=== PATIENT | female | born 1970 | race Caucasian/White ===

== ENCOUNTER → 2020-04-16 14:24 | Outpatient (BNVA) | payer OTHER, SELFPAY | PROVIDERS: PCP Internal Medicine; Visit Provider Internal Medicine Pulmonary Disease | DX: Z76.89 Persons encountering health services in other specified circumstances (principal) ==

== ENCOUNTER → 2020-10-25 13:57 | Outpatient (BNVA) | payer OTHER, SELFPAY | PROVIDERS: PCP Internal Medicine; Visit Provider Internal Medicine Pulmonary Disease ==

== ENCOUNTER 2020-12-13 08:32 | Outpatient (REF) | payer OTHER, SELFPAY | END 2020-12-13 08:33 | disposition home or self-care (01) | LOC: HO.MDS 08:32 | PROVIDERS: PCP Internal Medicine; Visit Provider Internal Medicine Pulmonary Disease | DX: D50.9 Iron deficiency anemia, unspecified (principal) | CPT/HCPCS: 96372; J0517 ==

== ENCOUNTER 2021-01-10 07:31 | Outpatient (REF) | payer OTHER, SELFPAY | END 2021-01-10 07:32 | disposition home or self-care (01) | LOC: HO.MDS 07:31 | PROVIDERS: PCP Internal Medicine; Visit Provider Internal Medicine Pulmonary Disease | DX: J45.50 Severe persistent asthma, uncomplicated (principal) | CPT/HCPCS: 96372; J0517 ==

== ENCOUNTER → 2021-01-22 16:11 | Outpatient (BNVA) | payer OTHER, SELFPAY | PROVIDERS: Visit Provider Internal Medicine Pulmonary Disease ==

== ENCOUNTER 2021-02-11 07:29 | Outpatient (REF) | payer OTHER, SELFPAY | END 2021-02-11 07:30 | disposition home or self-care (01) | LOC: HO.MDS 07:29 | PROVIDERS: PCP Internal Medicine; Visit Provider Internal Medicine Pulmonary Disease | DX: J45.50 Severe persistent asthma, uncomplicated (principal) | CPT/HCPCS: 96372; J0517 ==

== ENCOUNTER → 2021-03-19 15:28 | Outpatient (BNVA) | payer OTHER, SELFPAY | PROVIDERS: PCP Internal Medicine; Visit Provider Internal Medicine Pulmonary Disease ==

== ENCOUNTER → 2021-09-05 13:14 | Outpatient (BNVA) | payer OTHER, SELFPAY | PROVIDERS: PCP Internal Medicine; Visit Provider Internal Medicine Pulmonary Disease ==

== ENCOUNTER 2023-02-18 15:36 | Outpatient (AMB) | payer OTHER, SELFPAY ==
--- NOTE | 2023-02-18 15:39 | MHC.OFFVIS ---
Intake Vital Signs 02/18/23 15:40 Height 5 ft 1 in Weight 231 lb 7.766 oz BMI 43.7 BP 98/60 Blood Pressure Location Rt brachial Position Sitting Pulse 85 Pulse Source Doppler Pulse Oximetry (%) 95 Oxygen Delivery Method Room Air Intake Visit Reasons: asthma Allergies amoxicillin [Augmentin] Allergy (Unknown, Verified 02/18/23 15:41) Unknown clavulanic acid [Augmentin] Allergy (Unknown, Verified 02/18/23 15:41) Unknown HPI asthma HPI Details 52-year-old lady, former 20 pack-year smoker, quit 2010 with underlying obesity, followed for obstructive sleep apnea on CPAP, environmental allergies, and severe persistent asthma.? Her symptoms are previously controlled on Fasenra, Wixela, Singulair, and albuterol MDI.?She can no longer afford Fasenra in that she is continuing on fluticasone/salmeterol, Singulair, albuterol MDI. Now she complains of an allergic rhinitis worsening associated with change in seasons. [facility] Social History Years Smoked: 15 yrs Review of Systems Const Denies daytime sleepiness, Denies excessive sweating, Denies fatigue, Denies fever(s), Denies lethargy, Denies malaise, Denies night sweats, Denies snoring and Denies weight loss Eyes Denies blurry vision and Denies itchy eyes ENT Reports nasal congestion, Reports post nasal drip, Denies sinus pain, Denies sinus pressure and Denies other ( Thrush) Card Denies chest pain, Denies pedal edema, Denies dyspnea, Denies orthopnea and Denies paroxysmal nocturnal dyspnea Resp Denies cough, Denies hemoptysis, Denies excessive phlegm production, Denies dyspnea, Denies snoring and Denies wheezing GI Denies abdominal pain and Denies heartburn Musc Denies myalgias, Denies arthralgias and Denies joint swelling Skin/Breast Denies rash Neuro Denies memory loss and Denies seizure-like activity Psych Denies abnormal sleep pattern, Denies anxiety and Denies memory loss Endo Denies excessive sweating, Denies fatigue and Denies heat intolerance Delvin/Lymph Denies easy bruising Aller/Immun Denies itchy eyes, Denies seasonal rhinorrhea and Denies wheezing Physical Exam Vital Signs: Last Vital Signs Pulse 85 02/18/23 15:40 BP 98/60 02/18/23 15:40 Pulse Ox 95 02/18/23 15:40 Oxygen Delivery Method Room Air 02/18/23 15:40 BMI result Body Mass Index 43.7 Const General: no acute distress and alert Nutritional Appearance: obese Orientation/consciousness: Other orientation findings ( oriented) HEENT Head: Yes atraumatic Eyes General: appearance normal, both eyes and all related structures Sclerae: sclerae normal EOM: EOMs intact bilaterally Neck Neck: Yes supple Lymphatic: no lymphadenopathy noted Resp Effort & Inspection: normal respiratory effort and no use of accessory muscles Auscultation: clear to auscultation bilaterally Cardio Rate: regular rate Rhythm: regular rhythm Heart sounds: no gallops, no murmurs and no rubs Skin General skin exam: other ( warm) Extrem General: No clubbing, No cyanosis and No edema Assessment & Plan Assessment & Plan (1) Severe persistent allergic asthma: Code(s): J45.50 - Severe persistent asthma, uncomplicated Plan: Baseline controlled on fluticasone/salmeterol and albuterol MDI. Continue current regimen. Now with allergic exacerbation treat with a course of prednisone. (2) Severe obstructive sleep apnea: Code(s): G47.33 - Obstructive sleep apnea (adult) (pediatric) Plan: Therapy and compliance report reviewed - patient is benefitting from and is compliant with noninvasive positive pressure ventilation treatment, using it greater than 70% of the time, more than 4 hours per night. Continue current CPAP therapy. (3) Environmental allergies: Code(s): Z91.09 - Other allergy status, other than to drugs and biological substances Plan: Now with seasonal exacerbation. Continue on Singulair. Medications: New prednisone Take four tabs daily for 3 days, then go down by 1 tab every 3 days. 10 mg PO DIRECTED 30 tabs 0RF Coding Level of Care Code Est Pt Level 4 (29287) Diagnoses Severe persistent allergic asthma J45.50 Severe obstructive sleep apnea G47.33 Environmental allergies Z91.09
[2023-02-18 15:40] VITALS: BP 98/60; PULSE 85; O2SAT 95; BMI 43.7
== END 2023-02-18 15:51 | disposition home or self-care (01) ==
PROVIDERS: PCP Internal Medicine; Visit Provider Internal Medicine Pulmonary Disease
DX: J45.50 Severe persistent asthma, uncomplicated (principal); G47.33 Obstructive sleep apnea (adult) (pediatric); Z91.09 Other allergy status, other than to drugs and biological substances
CPT/HCPCS: 99214

== ENCOUNTER → 2023-02-18 15:36 | Outpatient (BNVA) | payer OTHER, SELFPAY | PROVIDERS: PCP Internal Medicine; Visit Provider Internal Medicine Pulmonary Disease ==

== ENCOUNTER 2023-08-18 15:46 | Outpatient (AMB) | payer OTHER, SELFPAY ==
[2023-08-18 15:51] VITALS: BP 97/62; PULSE 81; O2SAT 97
--- NOTE | 2023-08-18 15:51 | A.OFFVIS_ITS ---
Intake Vital Signs 08/18/23 15:51 Weight 240 lb 4.862 oz BP 97/62 Blood Pressure Location Lt brachial Position Sitting Pulse 81 Pulse Source Doppler Pulse Oximetry (%) 97 Oxygen Delivery Method Room Air Intake Visit Reasons: asthma Allergies amoxicillin [Augmentin] Allergy (Unknown, Verified 08/18/23 15:57) Unknown clavulanic acid [Augmentin] Allergy (Unknown, Verified 08/18/23 15:57) Unknown HPI asthma HPI Details 53-year-old lady, former 20 pack-year sm alana, quit 2010 with underlying obesity, followed for obstructive sleep apnea on CPAP, environmental allergies, and severe persistent asthma.? Her symptoms are previously controlled on Fasenra, Wixela, Singulair, and albuterol MDI.?She can no longer afford Fasenra. Now she is using fluticasone/salmeterol, Singulair, albuterol MDI. She denies any recent exacerbations. Patient states that she has been having difficulties using nasal pillows and now would like to try a bigger CPAP mask. [facility] Social History Years Smoked: 15 yrs Review of Systems Const Denies daytime sleepiness, Denies excessive sweating, Denies fatigue, Denies fever(s), Denies lethargy, Denies malaise, Denies night sweats, Denies snoring and Denies weight loss Eyes Denies blurry vision and Denies itchy eyes ENT Denies nasal congestion, Denies post nasal drip, Denies sinus pain, Denies sinus pressure and Denies other ( Thrush) Card Denies chest pain, Denies pedal edema, Denies dyspnea, Denies orthopnea and Denies paroxysmal nocturnal dyspnea Resp Denies cough, Denies hemoptysis, Denies excessive phlegm production, Denies dyspnea, Denies snoring and Denies wheezing GI Denies abdominal pain and Denies heartburn Musc Denies myalgias, Denies arthralgias and Denies joint swelling Skin/Breast Denies rash Neuro Denies memory loss and Denies seizure-like activity Psych Denies abnormal sleep pattern, Denies anxiety and Denies memory loss Endo Denies excessive sweating, Denies fatigue and Denies heat intolerance Delvin/Lymph Denies easy bruising Aller/Immun Denies itchy eyes, Denies seasonal rhinorrhea and Denies wheezing Physical Exam Vital Signs: Last Vital Signs Pulse 81 08/18/23 15:51 BP 97/62 08/18/23 15:51 Pulse Ox 97 08/18/23 15:51 Oxygen Delivery Method Room Air 08/18/23 15:51 Const General: no acute distress and alert Nutritional Appearance: obese Orientation/consciousness: Other orientation findings ( oriented) HEENT Head: Yes atraumatic Eyes General: appearance normal, both eyes and all related structures Sclerae: sclerae normal EOM: EOMs intact bilaterally Neck Neck: Yes supple Lymphatic: no lymphadenopathy noted Resp Effort & Inspection: normal respiratory effort and no use of accessory muscles Auscultation: clear to auscultation bilaterally Cardio Rate: regular rate Rhythm: regular rhythm Heart sounds: no gallops, no murmurs and no rubs Skin General skin exam: other ( warm) Extrem General: No clubbing, No cyanosis and No edema Assessment & Plan Assessment & Plan (1) Severe persistent allergic asthma: Code(s): J45.50 - Severe persistent asthma, uncomplicated Plan: Worsened control off Fasenra, but still reasonable on Advair HFA and albuterol MDI. Continue current regimen. (2) Severe obstructive sleep apnea: Code(s): G47.33 - Obstructive sleep apnea (adult) (pediatric) Plan: Well controlled on current CPAP therapy. Continue CPAP therapy. Coding Level of Care Code Est Pt Level 4 (33760) Diagnoses Severe persistent allergic asthma J45.50 Severe obstructive sleep apnea G47.33
== END 2023-08-18 16:06 | disposition home or self-care (01) ==
PROVIDERS: PCP Internal Medicine; Visit Provider Internal Medicine Pulmonary Disease
DX: J45.50 Severe persistent asthma, uncomplicated (principal); G47.33 Obstructive sleep apnea (adult) (pediatric)
CPT/HCPCS: 99214

== ENCOUNTER → 2023-08-18 15:46 | Outpatient (BNVA) | payer OTHER, SELFPAY | PROVIDERS: PCP Internal Medicine; Visit Provider Internal Medicine Pulmonary Disease ==

== ENCOUNTER 2024-03-21 14:23 | Outpatient (AMB) | payer OTHER, SELFPAY ==
[2024-03-21 14:27] VITALS: BP 100/62; PULSE 83; O2SAT 94; BMI 46.0
--- NOTE | 2024-03-21 14:27 | MHC.OFFVIS ---
Vital Signs 03/21/24 14:27 Height 5 ft 1 in Weight 243 lb 9.773 oz BMI 46.0 BP 100/62 Blood Pressure Location Rt brachial Position Sitting Pulse 83 Pulse Source Doppler Pulse Oximetry (%) 94 Oxygen Delivery Method Room Air Intake Visit Reasons: asthma Allergies amoxicillin [Augmentin] Allergy (Unknown, Verified 08/18/23 15:57) Unknown clavulanic acid [Augmentin] Allergy (Unknown, Verified 08/18/23 15:57) Unknown HPI HPI asthma: Details: 53-year-old lady, former 20 pack-year smoker, quit 2010 with underlying obesity, followed for obstructive sleep apnea on CPAP, environmental allergies, and severe persistent asthma.? Her symptoms were previously controlled on Fasenra, Wixela, Singulair, and albuterol MDI.?She can no longer afford Fasenra. Now she is using fluticasone/salmeterol, Singulair, albuterol MDI until recently with reasonable control, however control has worsening secondary to worsening seasonal allergies. Though, she denies any recent exacerbations. [facility] Social History Years Smoked: 15 yrs Review of Systems Const Denies daytime sleepiness, Denies excessive sweating, Denies fatigue, Denies fever(s), Denies lethargy, Denies malaise, Denies night sweats, Denies snoring and Denies weight loss Eyes Denies blurry vision and Denies itchy eyes ENT Denies nasal congestion, Denies post nasal drip, Denies sinus pain, Denies sinus pressure and Denies other ( Thrush) Card Denies chest pain, Denies pedal edema, Denies dyspnea, Denies orthopnea and Denies paroxysmal nocturnal dyspnea Resp Reports cough, Denies hemoptysis, Reports excessive phlegm production, Denies dyspnea, Denies snoring and Denies wheezing GI Denies abdominal pain and Denies heartburn Musc Denies myalgias, Denies arthralgias and Denies joint swelling Skin/Breast Denies rash Neuro Denies memory loss and Denies seizure-like activity Psych Denies abnormal sleep pattern, Denies anxiety and Denies memory loss Endo Denies excessive sweating, Denies fatigue and Denies heat intolerance Delvin/Lymph Denies easy bruising Aller/Immun Denies itchy eyes, Denies seasonal rhinorrhea and Denies wheezing Physical Exam Vital Signs: Last Vital Signs Pulse 83 03/21/24 14:27 BP 100/62 03/21/24 14:27 Pulse Ox 94 03/21/24 14:27 Oxygen Delivery Method Room Air 03/21/24 14:27 BMI result Body Mass Index 46.0 Const General: no acute distress and alert Nutritional Appearance: obese Orientation/consciousness: Other orientation findings ( oriented) HEENT Head: Yes atraumatic Eyes General: appearance normal, both eyes and all related structures Sclerae: sclerae normal EOM: EOMs intact bilaterally Neck Neck: Yes supple Lymphatic: no lymphadenopathy noted Resp Effort & Inspection: normal respiratory effort and no use of accessory muscles Auscultation: clear to auscultation bilaterally Cardio Rate: regular rate Rhythm: regular rhythm Heart sounds: no gallops, no murmurs and no rubs Skin General skin exam: other ( warm) Extrem General: No clubbing, No cyanosis and No edema Assessment & Plan Assessment & Plan (1) Environmental allergies: Code(s): Z91.09 - Other allergy status, other than to drugs and biological substances Category: Medical Plan: Worsening control secondary to seasonal allergies. Patient can no longer afford Fasenra. Continue Singulair, add cetirizine. (2) Severe persistent allergic asthma: Code(s): J45.50 - Severe persistent asthma, uncomplicated Category: Medical Plan: Worsening control off Fasenra, but still reasonable on Advair and albuterol MDI. Continue current regimen. (3) Severe obstructive sleep apnea: Code(s): G47.33 - Obstructive sleep apnea (adult) (pediatric) Category: Medical Plan: Reasonable control on CPAP therapy. Continue CPAP therapy. Medications: New cetirizine 10 mg PO DAILY 30 tabs 3RF Coding Level of Care Code Est Pt Level 4 (88551) Diagnoses Environmental allergies Z91.09 Severe persistent allergic asthma J45.50 Severe obstructive sleep apnea G47.33
== END 2024-03-21 14:48 | disposition home or self-care (01) ==
PROVIDERS: PCP Family Medicine; Visit Provider Internal Medicine Pulmonary Disease
DX: Z91.09 Other allergy status, other than to drugs and biological substances (principal); J45.50 Severe persistent asthma, uncomplicated; G47.33 Obstructive sleep apnea (adult) (pediatric)
CPT/HCPCS: 99214

== ENCOUNTER → 2024-03-21 14:23 | Outpatient (BNVA) | payer OTHER, SELFPAY | PROVIDERS: PCP Family Medicine; Visit Provider Internal Medicine Pulmonary Disease ==

== ENCOUNTER 2024-09-21 15:37 | Outpatient (AMB) | payer OTHER, SELFPAY ==
[2024-09-21 15:40] VITALS: BP 112/58; PULSE 91; O2SAT 98; BMI 45.5
--- NOTE | 2024-09-21 15:40 | A.OFFVIS_ITS ---
Vital Signs 09/21/24 15:40 Height 5 ft 1 in Weight 241 lb BMI 45.5 BP 112/58 L Blood Pressure Location Rt brachial Position Sitting Pulse 91 Pulse Source Doppler Pulse Oximetry (%) 98 Oxygen Delivery Method Room Air Intake Visit Reasons: asthma Allergies amoxicillin [Augmentin] Allergy (Unknown, Verified 09/21/24 15:46) Unknown clavulanic acid [Augmentin] Allergy (Unknown, Verified 09/21/24 15:46) Unknown HPI HPI asthma: Details: 53-year-old lady, former 20 pack-year smoker, quit 2010 with underlying obesity, followed for obstructive sleep apnea on CPAP, environmental allergies, and severe persistent asthma.? Her symptoms reasonably controlled Wixela, Singulair, and albuterol MDI.?She can no longer afford Fasenra. She denies recent exacerbations. Patient did have recent flare-up of her environmental allergies for which she continues on Zyrtec, pseudoephedrine, and Alix. [facility] Social History Years Smoked: 15 yrs Review of Systems Const Denies daytime sleepiness, Denies excessive sweating, Denies fatigue, Denies fever(s), Denies lethargy, Denies malaise, Denies night sweats, Denies snoring and Denies weight loss Eyes Denies blurry vision and Denies itchy eyes ENT Denies nasal congestion, Denies post nasal drip, Denies sinus pain, Denies sinus pressure and Denies other ( Thrush) Card Denies chest pain, Denies pedal edema, Denies dyspnea, Denies orthopnea and Denies paroxysmal nocturnal dyspnea Resp Denies cough, Denies hemoptysis, Denies excessive phlegm production, Denies dyspnea, Denies snoring and Denies wheezing GI Denies abdominal pain and Denies heartburn Musc Denies myalgias, Denies arthralgias and Denies joint swelling Skin/Breast Denies rash Neuro Denies memory loss and Denies seizure-like activity Psych Denies abnormal sleep pattern, Denies anxiety and Denies memory loss Endo Denies excessive sweating, Denies fatigue and Denies heat intolerance Delvin/Lymph Denies easy bruising Aller/Immun Denies itchy eyes, Denies seasonal rhinorrhea and Denies wheezing Physical Exam Vital Signs: Last Vital Signs Pulse 91 09/21/24 15:40 BP 112/58 L 09/21/24 15:40 Pulse Ox 98 09/21/24 15:40 Oxygen Delivery Method Room Air 09/21/24 15:40 BMI result Body Mass Index 45.5 Const General: no acute distress and alert Nutritional Appearance: obese Orientation/consciousness: Other orientation findings ( oriented) HEENT Head: Yes atraumatic Eyes General: appearance normal, both eyes and all related structures Sclerae: sclerae normal EOM: EOMs intact bilaterally Neck Neck: Yes supple Lymphatic: no lymphadenopathy noted Resp Effort & Inspection: normal respiratory effort and no use of accessory muscles Auscultation: clear to auscultation bilaterally Cardio Rate: regular rate Rhythm: regular rhythm Heart sounds: no gallops, no murmurs and no rubs Skin General skin exam: other ( warm) Extrem General: No clubbing, No cyanosis and No edema Assessment & Plan Assessment & Plan (1) Severe persistent allergic asthma: Code(s): J45.50 - Severe persistent asthma, uncomplicated Category: Medical Plan: Reasonable control on Wixela, Singulair, and albuterol MDI. Continue current regimen. (2) Severe obstructive sleep apnea: Code(s): G47.33 - Obstructive sleep apnea (adult) (pediatric) Category: Medical Plan: Well controlled on CPAP therapy. Continue CPAP therapy. (3) Environmental allergies: Code(s): Z91.09 - Other allergy status, other than to drugs and biological substances Category: Medical Plan: Suboptimal, but reasonable control on Singulair, Alix, Zyrtec. Continue current regimen. Coding Level of Care Code Est Pt Level 4 (19552) Complex EM visit Add On G2211 Diagnoses Severe persistent allergic asthma J45.50 Severe obstructive sleep apnea G47.33 Environmental allergies Z91.09
--- OUTSIDE RECORDS SUMMARY | 2024-09-21 19:07 | XMS_ITS | Clinical Summary ---
Author Organization [facility] Facility Address [address] [address] Care Team Providers Care Scholastic Aptitude Test Grader Name Role Phone Shelly Vega MD Primary Care Provid er Allergies Active Allergy Reactions Criticality Noted Date Comments Adhesive Tape Other (see comments) 10/08/2020 Amoxicillin-Pot Clavulanate Other (see comments) 08/01/2013 Erythromycin Other (see comments) 07/11/2013 Latex Other (see comments) 10/08/2020 Mangifera Indica Anaphylaxis,Other (s ee comments) High 10/08/2020 Nsaids Anaphylaxis High 07/11/2013 Pineapple Other (see comments) 07/11/2013 Medications albuterol HFA (PROVENTIL HFA;VENTOLIN HFA) 108 (90 Base) MCG/ACT inhaler INHALE 2 PUFFS BY MOUTH EVERY 2 HOURS NEEDED 1 Active apixaban (Eliquis) 5 MG tablet Take 1 tablet by mouth 2 (two) times a day Active budesonide (Rhinocort Aqua) 32 MCG/ACT nasal spray Rhinocort Aqua 32 mcg/actuation nasal spray Reliance 2sprays each nostril daily Active citalopram (CeleXA) 20 MG tablet Take 20 mg by mouth 1 (one) time each day 1 Active cyclobenzaprine (FLEXERIL) 5 MG tablet Take 1 tablet by mouth 1 (one) time each day 1 Active escitalopram (LEXAPRO) 20 MG tablet Take 1 tablet by mouth 1 (one) time each day Active fluconazole (DIFLUCAN) 100 MG tablet Take 1 tablet by mouth 1 (one) time each day Active fluticasone-wilam meterol (Wixela Inhub) 250-50 MCG/DOSE diskus inhaler 1 puff by Other route 2 (two) times a day Active furosemide (LASIX) 40 MG tablet Take 1 tablet by mouth 2 (two) times a day 0 Active gabapentin (NEURONTIN) 100 MG capsule Take 1 capsule by mouth 1 (one) time each day 1 Active isometheptene-a cetaminophen-di chloralphenazon e (MIDRIN) 65-100-325 MG per capsule Take 2 capsules by mouth if needed Active loratadine (CLARITIN) 10 MG tablet Take 1 tablet by mouth 1 (one) time each day Active meloxicam (MOBIC) 7.5 MG tablet Take 1 tablet by mouth 1 (one) time each day 1 Active metroNIDAZOLE (FLAGYL) 500 MG tablet Take 1 tablet by mouth 1 (one) time each day Active montelukast (SINGULAIR) 10 MG tablet Take 10 mg by mouth 1 (one) time each day 1 Active omeprazole (PriLOSEC) [address] capsule Take 20 mg by mouth 2 (two) times a day DIRECTED 1 Active predniSONE (DELTASONE) 20 MG tablet Take 1 tablet by mouth 1 Active sulfamethoxazol e-trimethoprim (BACTRIM DS,SEPTRA DS) 800-160 MG per tablet Take 1 tablet by mouth 1 (one) time each day Active topiramate (TOPAMAX) 25 MG tablet Take 50 mg by mouth 2 (two) times a day 1 Active torsemide (DEMADEX) 20 MG tablet Take 1 tablet by mouth 1 (one) time each day Active valACYclovir (Valtrex) 500 MG tablet Take 1 tablet by mouth 1 (one) time each day Active Active Problems Problem Noted Date Diagnosed Date Allergic rhinitis 10/08/2020 Anxiety state 10/08/2020 Edema of lower extremity 10/08/2020 Gastroesophageal reflux disease 10/08/2020 Impaired glucose tolerance 10/08/2020 Iron deficiency anemia 10/08/2020 Irritable bowel syndrome 10/08/2020 Migraine 10/08/2020 Obstructive sleep apnea syndrome 10/08/2020 Hypertensive heart and chron ic kidney disease without heart failure, with stage 1 through stage 4 chronic kidney disease, or unspecified chronic kidney disease 10/08/2020 Chronic kidney disease, stage 2 (mild) Candidiasis of mouth 09/07/2020 Chronic vascular insufficiency 04/04/2020 Chronic back pain 06/16/2019 Deep venous thrombosis of upper extremity 2018 Severe obesity 07/06/2018 Dysfunctional uterine bleeding 08/26/2002 Immunizations Name Administration Dates Next Due Influenza (IM) Preservative Free 04/11/2015 Influenza TIV (IM) 04/06/2019,03/28/2014, 010 Influenza, Quadrivalent, Preservative Free 04/04 Influenza, Quadrivalent, With Preservative 04/16,04/02/2017 Moderna SARS-COV-2 08/16/2020,07/19/2020 Td 01/21/1999 Tdap 11/14/2012 Family History Medical History Relation Comments Diabetes Father Type 2 Hypertension Father Cancer Mother anal- Relation Status Comments Father Alive Mother Social History Tobacco Use Types Packs/Day Years Used Date Smoking Tobacco: Never Smokeless Tobacco: Never Alcohol Use Standard Drinks/Week Comments Yes 0 (1 standard drink = 0.6 oz pure alcohol) Alcoholic Drinks/day: 3 or more drinks per day Comments Unknown Sex and Gender Information Value Date Recorded Sex Assigned at Not on file Legal Sex Female 4:57 PM EST Gender Identity Not on file Sexual Orientation Not on file Last Filed Vital Signs Vital Sign Reading Time Taken Comments Blood Pressure 140/80 10/08/2020 1:46 PM EDT Pulse 88 10/08/2020 1:46 PM EDT Temperature - - Respiratory Rate - - Oxygen Saturation 95% 04/01/2020 12:01 PM EDT Inhaled Oxygen Concentration - - Weight 107 kg (236 lb) 10/08/2020 1:46 PM EDT Height 154.9 cm (5' 1 ) 04/01/2020 12:01 PM EDT Body Mass Index 44.59 04/01/2020 12:01 PM EDT Plan of Treatment Health Maintenance Due Date Last Done Comments Breast Cancer Screening 1970 Pneumococcal Vaccine: Pediat rics (0 to 5 Years) and At-Risk Patients (6 to 64 Years) (1 of 2 - PCV) 1976 Hepatitis B Vaccine (1 of 3 - 19+ 3-dose series) 1989 Colorectal Cancer Screening: Annual FOBT 2019 Colorectal Cancer Screening: Colonoscopy 2019 Colorectal Cancer Screening: Sigmoidoscopy 2019 Influenza Vaccine (#1) 2024 0, 04/06/2019, 04/16/2018, Additional history exists Care Teams Scholastic Aptitude Test Grader Relationship Specialty Start Date End Date Shelly Vega MD [address] PCP - General Internal Medicine 10/08/20
--- OUTSIDE RECORDS SUMMARY | 2024-09-21 19:08 | XMS_ITS | Clinical Summary ---
Author Organization [facility] [address] [facility] Address [address] [place] [address] Phone Care Team Providers Care Software Lead Name Role Phone Joey Villalobos MD Primary Care Provider [phone] Allergies Active Allergy Reactions Criticality Noted Date Comments Banana 05/30/2024 Erythromycin 05/30/2024 Latex 05/30/2024 [place] 05/30/2024 Pineapple 05/30/2024 [place] 05/30/2024 Medications valACYclovir (VALTREX) 500 mg tablet Take 1 tablet (500 mg total) by mouth 1 (one) time each day. 8 Active topiramate (TOPAMAX) 200 mg tablet Take 1 tablet every day by oral route at bedtime for 90 days. Active omeprazole (PriLOSEC) [address] capsule Take 1 capsule (20 mg total) by mouth. 1 Active montelukast (SINGULAIR) 10 mg tablet Take 1 tablet (10 mg total) by mouth 1 (one) time each day. 1 Active cetirizine (ZyrTEC) 10 mg tablet Take 1 tablet (10 mg total) by mouth 1 (one) time each day. Active albuterol HFA (PROAIR HFA ; PROVENTIL HFA ; VENTOLIN HFA) 90 mcg/actuation inhaler Inhale 2 puffs every day by inhalation route for 15 days. 1 Active escitalopram (LEXAPRO) 20 mg tablet Take 1 tablet (20 mg total) by mouth at bedtime. Active fluticasone-wilma meterol (ADVAIR DISKUS) 250-50 mcg/dose diskus inhaler 1 puff by Other route. Active dicyclomine (BENTYL) 10 mg capsuleIndicati ons:Irritable bowel syndrome with diarrhea TAKE 1 CAPSULE (10 MG TOTAL) BY MOUTH 4 (FOUR) TIMES A DAY IF NEEDED (DIARRHEA). 360 capsule 1 4 06/08/20 Active Active Problems Problem Noted Date Diagnosed Date Irritable bowel syndrome with diarrhea Social History Tobacco Use Types Packs/Day Years Used Date Smoking Tobacco: Never Assessed Comments Unknown Sex and Gender Information Value Date Recorded Sex Assigned at Not on file Legal Sex Female 12:44 AM EST Gender Identity Not on file Sexual Orientation Not on file Last Filed Vital Signs Vital Sign Reading Time Taken Comments Blood Pressure - - Pulse - - Temperature - - Respiratory Rate - - Oxygen Saturation - - Inhaled Oxygen Concentration - - Weight 110 kg (243 lb) 05/30/2024 7:28 AM EST Height 154.9 cm (5' 1 ) 05/30/2024 7:28 AM EST Body Mass Index 45.91 05/30/2024 7:28 AM EST Plan of Treatment Health Maintenance Due Date Last Done Comments Diabetes: Annual GFR (Glomerular Filtration Rate) 1970 Diabetes: Annual Foot Exam 1980 Diabetes: Annual Retina Eye Exam 1980 Hepatitis B Vaccines (1 of 3 - 19+ 3-dose series) 1989 Pneumococcal Vaccine: 50+ Years (1 of 2 - PCV) 1989 Pneumococcal Vaccine: Pediatrics (0 to 5 Years) and At-Risk Patients (6 to 64 Years) (1 of 2 - PCV) 1989 Cervical Cancer Screening: Pap Smear 1991 Zoster Vaccines (1 of 2) 2020 DTaP,Tdap,and Td Vaccines (3 - Td or Tdap) 11/14/2022 11/14/2012, 01/21/1999 COVID-19 Vaccine (2023- season) 2024 02/26/2023, 05/02/2021, 08/16/2020, Additional history exists Influenza Vaccine (#1) 2024 2, 03/27/2021, 04/04/2020, Additional history exists Cholesterol Screening (Lipid Panel) 04/21/2024 Colorectal Cancer Screening: Colonoscopy 04/21/2024 Depression Screening 04/21/2024 HIV Screening 04/21/2024 Hepatitis C Screening 04/21/2024 Social Influencers of Health Screening 04/21/2024 Diabetes: Annual Urine Albumin-Creatinine Ratio (uACR) 05/30/2024 Diabetes: Blood Sugar Control Test (HGBA1C) 05/30/2024 Breast Cancer Screening 10/24/2025 10/25/2023 HIB Vaccines Aged Out No longer eligi ble based on patient's age to complete this topic HPV Vaccines Aged Out No longer eligi ble based on patient's age to complete this topic Hepatitis A Vaccines Aged Out No long er eligible based on patient's age to complete this topic IPV Vaccines Aged Out No longer eligi ble based on patient's age to complete this topic MMR Vaccines Aged Out No longer eligi ble based on patient's age to complete this topic Meningococcal ACWY Vaccine Aged Out N o longer eligible based on patient's age to complete this topic Meningococcal B Vacine Aged Out No lo nger eligible based on patient's age to complete this topic RSV Immunization Patients Under 20 months Aged Out No longer eligible based on patient's age to complete this topic Varicella Vaccines Aged Out No longer eligible based on patient's age to complete this topic Insurance * Guarantor: Adry Lorenzo Account Type Relation to Patient Date of Phone Billing Address Personal/Family Self 1970 [address] [facility] [address] [place] [address] [facility] [address] [place] [address] Care Teams Software Lead Relationship Specialty Start Date End Date Joey Villalobos MD [address] [facility] [address] [place] [id number] PCP - General Family Medicine 05/30/24
--- OUTSIDE RECORDS SUMMARY | 2024-09-21 19:08 | XMS_ITS | Data Portability ---
Author Organization [facility], Main Office Address [address] [place] [address] Care Team Providers Care Scheduling Manager Name Role Phone DINORA MUNOZ Wool Handler SHAYY REMY Gum Maker [phone] JOIE HODGE Orthopedic Surgeon [facility] Vascular Surgeon [phone] YAMINI BARNEY Cold Work Operator MIGUEL BUSCH Quality Improvement Specialist XAVI WILL Poster DARYL ROBLES [employer] Signal And Switch Operator JERRY JAY Primary Care Provider PRIYANKA DOZIER Neuropsychiatrist ENRIQUETA CRUZ Finisher Accordion RENNY LEDEZMA Slag Skimmer Assessment Encounter Date Assessment Date Assessment LastModified by Organization Details LastModified Time 09/28/2023 09/28/2023 This service was provided using telemedicine. Patient consented to video & audio visit Patient was located in the [facility]. Provider was located in the office. No other persons participated in the telemedicine visit except for the patient unless otherwise indicated here. {{}} Total time of visit was 15 minutes. renate Not available 09/28/2023 17:24:50 06/14/2024 06/14/2024 Discussed with patient the signs/symptoms warranted for a return to office visit and/or an ER visit. Patient understood and agreed with the plan. [email or web address] Not available 06/14/2024 15:27:37 Plan of Treatment Reminders Order Date Submit Date Provider Last Modified By Organization Details Last Modified Time Details Appointments None record ed. Lab HbA1c (hemog lobin A1c), blood 2023 [facility], [address], [address], [place], [address], 06:08:32 lipid panel, serum 2023 024 [facility] Patient Can Go To The Location Of Their Choice, [address] 06:08:32 TSH, ultra- sensit favian, serum 2023 024 [facility]), Patient Can Go To The Location Of Their Choice, [address] 06:08:33 CMP, serum or plasma 2023 [facility]), Patient Can Go To The Location Of Their Choice, [address] 06:08:31 CBC w/ auto diff 2023 [facility]), Patient Can Go To The Location Of Their Choice, [address] 06:08:30 urinal ysis, dipsti ck 2023 024 pmadden In-Office Order, Internal Use Only DO Not Attach Compendium DO Not Attach Compendium, Do Not Delete/merge, [id number] 11:41:10 urinal ysis comple te, reflex cultur e 2023 024 [facility] Patient Can Go To The Location Of Their Choice, [address] 4 12:06:51 Referral psychi atrist referr cassidy maldonado r2 2023 024 adolph Dozier, [address], [address], [place], [address], 12:11:42 Procedures None record ed. Surgeries None record ed. Imaging None record ed. Medication Orders predni sone 20 mg tablet 2023 024 [facility], [address] [place], [address], 4 15:30:04 flucon azole 150 mg tablet 2023 024 [facility], [address] [place], [address], 4 15:21:25 Tessal on Perles 100 mg capsul e 2023 024 [facility] [address] [place], [address], 4 16:23:09 Medrol (Marco) 4 mg tablet s in a dose pack 2023 024 [facility], [address] [place], [address], 4 16:24:04 Patient TargetsNo targets recorded. Patient Instructions Encounter Date Encounter Id Patient Instructions Last Modified By Organization Details Last Modified Time 08/28/2023 [id number] things to do when you have covid-19 ckokar Not available 08/28/2023 10:24:57 coronavirus (covid-19): care instructions ckokar Not available 08/28/2023 10:24:57 asthma attack: care instructions ckokar Not available 08/28/2023 10:24:57 09/28/2023 [id number] anxiety disorder : care instructions ckokar Not available 09/28/2023 17:24:51 11/30/2023 [id number] vaginal yeast infection: care instructions pmadden Not available 11/30/2023 14:03:42 Follow up if no improvement or if symptoms worsen. pmadden Not available 11/30/2023 11:50:35 04/04/2024 [id number] starting a weigh t loss plan: care instructions renate Not available 04/04/2024 15:08:10 sleep apnea: car e instructions [email or web address] Not available 04/04/2024 15:08:10 Reason for Referral Psychiatrist Referral for Cy clothymia questioning bipolar2 Referring Physician: Jerry Jay, Family Medicine, Encounter Date: 09/28/2023 Results Created Date Observation Date Name Description Value Unit Range Abnormal Flag Note LastModifiedBy Organization Detail LastModifiedTime 11/30/19 24 12/01/2023 UA WITH CULTU RE REFLE X specific gravity 1.018 1.005- 1.030 Not Available [facility] ([facility]) [address] [place], [address], 12/01/2023 12:06:50 11/30/19 24 12/01/2023 UA WITH CULTU RE REFLE X pH 7.0 5.0-7. 5 Not Available [facility] ([facility]) [address] [place], [address], 12/01/2023 12:06:50 11/30/19 24 12/01/2023 UA WITH CULTU RE REFLE X urine-color Yellow yellow Not Available [facility] ([facility]) [address] [place], [address], 12/01/2023 12:06:50 11/30/19 24 12/01/2023 UA WITH CULTU RE REFLE X appearance Clear clear Not Available [facility] ([facility]) [address] [place], [address], 12/01/2023 12:06:50 11/30/19 24 12/01/2023 UA WITH CULTU RE REFLE X WBC esterase Negati ve negati ve Not Available [facility] ([facility]) [address] [place], [address], 12/01/2023 12:06:50 11/30/19 24 12/01/2023 UA WITH CULTU RE REFLE X protein Negati ve negati ve/tra ce Not Available [facility] ([facility]) [address] [place], [address], 12/01/2023 12:06:50 11/30/19 24 12/01/2023 UA WITH CULTU RE REFLE X glucose Negati ve negati ve Not Available [facility] ([facility]) [address] [place], [address], 12/01/2023 12:06:50 11/30/19 24 12/01/2023 UA WITH CULTU RE REFLE X ketones Negati ve negati ve Not Available [facility] ([facility]) [address] [place], [address], 12/01/2023 12:06:50 11/30/19 24 12/01/2023 UA WITH CULTU RE REFLE X occult blood Negati ve negati ve Not Available [facility] ([facility]) [address] [place], [address], 12/01/2023 12:06:50 11/30/19 24 12/01/2023 UA WITH CULTU RE REFLE X bilirubin Negati ve negati ve Not Available [facility] ([facility]) [address] [place], [address], 12/01/2023 12:06:50 11/30/19 24 12/01/2023 UA WITH CULTU RE REFLE X urobilinogen ,semi-qn 0.2 mg/dL 0.2-1. 0 Not Available [facility] ([facility]) [address] [place], [address], 12/01/2023 12:06:50 11/30/19 24 12/01/2023 UA WITH CULTU RE REFLE X nitrite, urine Negati ve negati ve Not Available [facility] ([facility]) [address] [place], [address], 12/01/2023 12:06:50 11/30/19 24 12/01/2023 UA WITH CULTU RE REFLE X microscopic examination Commen t Micro scopi c not indic ated and not perfo rmed. Not Available [facility] ([facility]) [address] [facility] [address], [place], [address], 12/01/2023 12:06:50 11/30/19 24 12/01/2023 UA WITH CULTU RE REFLE X urinalysis reflex Commen t This speci men will not refle x to a Urine Cultu re. Not Available [facility] ([facility]) [address] [facility], [place], [address], 12/01/2023 12:06:50 11/30/19 24 11/30/2023 urina lysis , dipst ick Leukocytes Negati ve Not Available In-Office Order Internal Use Only DO Not Attach Compendium DO Not Attach Compendium, Do Not Delete/merge, [id number] 11/30/2023 11:38:39 11/30/19 24 11/30/2023 urina lysis , dipst ick Nitritie negati ve Not Available In-Office Order Internal Use Only DO Not Attach Compendium DO Not Attach Compendium, Do Not Delete/merge, [id number] 11/30/2023 11:38:39 11/30/19 24 11/30/2023 urina lysis , dipst ick Urobilinogen .2 Not Available In-Of fice Order Internal Use Only DO Not Attach Compendium DO Not Attach Compendium, Do Not Delete/merge, [id number] 11/30/2023 11:38:39 11/30/19 24 11/30/2023 urina lysis , dipst ick Protein Negati ve Not Available In-Office Order Internal Use Only DO Not Attach Compendium DO Not Attach Compendium, Do Not Delete/merge, [id number] 11/30/2023 11:38:39 11/30/19 24 11/30/2023 urina lysis , dipst ick pH 6.5 Not Available In-Office Order Internal Use Only DO Not Attach Compendium DO Not Attach Compendium, Do Not Delete/merge, 11/30/2023 11:38:39 11/30/19 24 11/30/2023 urina lysis , dipst ick Blood Negati ve Not Available In-Office Order Internal Use Only DO Not Attach Compendium DO Not Attach Compendium, Do Not Delete/merge, 11/30/2023 11:38:39 11/30/19 24 11/30/2023 urina lysis , dipst ick Specific Dodge 1.015 Not Available In-Off ice Order Internal Use Only DO Not Attach Compendium DO Not Attach Compendium, Do Not Delete/merge, 11/30/2023 11:38:39 11/30/19 24 11/30/2023 urina lysis , dipst ick Ketone Negati ve Not Available In-Office Order Internal Use Only DO Not Attach Compendium DO Not Attach Compendium, Do Not Delete/merge, 11/30/2023 11:38:39 11/30/19 24 11/30/2023 urina lysis , dipst ick Bilirubin Negati ve Not Available In-Office Order Internal Use Only DO Not Attach Compendium DO Not Attach Compendium, Do Not Delete/merge, 11/30/2023 11:38:39 11/30/19 24 11/30/2023 urina lysis , dipst ick Glucose Negati ve Not Available In-Office Order Internal Use Only DO Not Attach Compendium DO Not Attach Compendium, Do Not Delete/merge, 11/30/2023 11:38:39 11/30/19 24 11/30/2023 urina lysis , dipst ick Appearance Clear Not Available In-Offi ce Order Internal Use Only DO Not Attach Compendium DO Not Attach Compendium, Do Not Delete/merge, 11/30/2023 11:38:39 11/30/19 24 11/30/2023 urina lysis , dipst ick Color Yellow Not Available In-Office Order Internal Use Only DO Not Attach Compendium DO Not Attach Compendium, Do Not Delete/merge, 11/30/2023 11:38:39 04/27/20 24 04/28/2024 CBC WITH DIFFE RENTI AL/PL ATELE T WBC 6.5 x10e3 /uL 3.4-10 .8 normal Not Available [facility] ([facility]) [address] [facility], [place], [address], 04/28/2024 06:08:30 04/27/20 24 04/28/2024 CBC WITH DIFFE RENTI AL/PL ATELE T RBC 4.64 x10e6 /uL 3.77-5 .28 normal Not Available [facility] ([facility]) [address] [facility], [place], [address], 04/28/2024 06:08:30 04/27/2004/28/2024 CBC WITH DIFFE RENTI AL/PL ATELE T hemoglobin 13.3 g/dL 11.1-1 5.9 normal Not Available [facility] ([facility]) [address] [place], [address], 04/28/2024 06:08:30 04/27/20 24 04/28/2024 CBC WITH DIFFE RENTI AL/PL ATELE T hematocrit 40.9 % 34.0-4 6.6 normal Not Available [facility] ([facility]) [address] [place], [address], 04/28/2024 06:08:30 04/27/2004/28/2024 CBC WITH DIFFE RENTI AL/PL ATELE T MCV 88 fL 79-97 normal Not Available [facility] ([facility]) [address] [place], [address], 04/28/2024 06:08:30 04/27/2004/28/2024 CBC WITH DIFFE RENTI AL/PL ATELE T MCH 28.7 pg 26.6-3 3.0 normal Not Available [facility] ([facility]) [address] [place], [address], 04/28/2024 06:08:30 04/27/20 24 04/28/2024 CBC WITH DIFFE RENTI AL/PL ATELE T MCHC 32.5 g/dL 31.5-3 5.7 normal Not Available [facility] ([facility]) [address] [facility], [place], [address], 04/28/2024 06:08:30 04/27/20 24 04/28/2024 CBC WITH DIFFE RENTI AL/PL ATELE T RDW 12.9 % 11.7-1 5.4 Not Available [facility] ([facility]) [address] [facility] [address], [place], [address], 04/28/2024 06:08:30 04/27/2004/28/2024 CBC WITH DIFFE RENTI AL/PL ATELE T platelets 263 x10e3 /uL 150-45 0 normal Not Available [facility] ([facility]) [address] [facility], [place], [address], 04/28/2024 06:08:30 04/27/20 24 04/28/2024 CBC WITH DIFFE RENTI AL/PL ATELE T neutrophils 60 % not estab. normal Not Available [facility] ([facility]) [address] [facility], [place], [address], 04/28/2024 06:08:30 04/27/20 24 04/28/2024 CBC WITH DIFFE RENTI AL/PL ATELE T lymphs 28 % not estab. normal Not Available [facility] ([facility]) [address] [facility], [place], [address], 04/28/2024 06:08:30 04/27/20 24 04/28/2024 CBC WITH DIFFE RENTI AL/PL ATELE T monocytes 7 % not estab. normal Not Available [facility] ([facility]) [address] [facility], [place], [address], 04/28/2024 06:08:30 04/27/20 24 04/28/2024 CBC WITH DIFFE RENTI AL/PL ATELE T eos 4 % not estab. normal Not Available [facility] ([facility]) [address] [facility], [place], [address], 04/28/2024 06:08:30 04/27/20 24 04/28/2024 CBC WITH DIFFE RENTI AL/PL ATELE T basos 1 % not estab. normal Not Available [facility] ([facility]) [address] [facility], [place], [address], 04/28/2024 06:08:30 04/27/2004/28/2024 CBC WITH DIFFE RENTI AL/PL ATELE T immature cells ELECTRICIAN MAINTENANCE Not Available [facility] ([facility]) [address] [facility], [place], [address], 04/28/2024 06:08:30 04/27/2004/28/2024 CBC WITH DIFFE RENTI AL/PL ATELE T neutrophils (absolute) 3.9 x10e3 /uL 1.4-7. 0 normal Not Available [facility] ([facility]) [address] [place], [address], 04/28/2024 06:08:30 04/27/20 24 04/28/2024 CBC WITH DIFFE RENTI AL/PL ATELE T lymphs (absolute) 1.8 x10e3 /uL 0.7-3. 1 normal Not Available [facility] ([facility]) [address] [place], [address], 04/28/2024 06:08:30 04/27/2004/28/2024 CBC WITH DIFFE RENTI AL/PL ATELE T monocytes(ab solute) 0.4 x10e3 /uL 0.1-0. 9 normal Not Available [facility] ([facility]) [address] [place], [address], 04/28/2024 06:08:30 04/27/20 24 04/28/2024 CBC WITH DIFFE RENTI AL/PL ATELE T eos (absolute) 0.2 x10e3 /uL 0.0-0. 4 normal Not Available [facility] ([facility]) [address] [facility], [place], [address], 04/28/2024 06:08:30 04/27/20 24 04/28/2024 CBC WITH DIFFE RENTI AL/PL ATELE T baso (absolute) 0.1 x10e3 /uL 0.0-0. 2 normal Not Available [facility] ([facility]) [address] [facility], [place], [address], 04/28/2024 06:08:30 04/27/2004/28/2024 CBC WITH DIFFE RENTI AL/PL ATELE T immature granulocytes 0 % not estab. Not Available [facility] ([facility]) [address] [facility], [place], [address], 04/28/2024 06:08:30 04/27/20 24 04/28/2024 CBC WITH DIFFE RENTI AL/PL ATELE T immature grans (abs) 0.0 x10e3 /uL 0.0-0. 1 Not Available [facility] ([facility]) [address] [facility], [place], [address], 04/28/2024 06:08:30 04/27/20 24 04/28/2024 CBC WITH DIFFE RENTI AL/PL ATELE T NRBC ELECTRICIAN MAINTENANCE Not Available [facility] ([facility]) [address] [place], [address], 04/28/2024 06:08:30 04/27/2004/28/2024 CBC WITH DIFFE RENTI AL/PL ATELE T hematology comments: ELECTRICIAN MAINTENANCE Not Available [facility] ([facility]) [address] [facility], [place], [address], 04/28/2024 06:08:30 04/27/20 24 04/28/2024 COMP. METAB OLIC PANEL (14) glucose 122 mg/dL 70-99 above high normal Not Available [facility] ([facility]) [address] [facility] [place], [address], 04/28/2024 06:08:31 04/27/20 24 04/28/2024 COMP. METAB OLIC PANEL (14) BUN 13 mg/dL 6-24 normal Not Available [facility] ([facility]) [address] [facility] [place], [address], 04/28/2024 06:08:31 04/27/20 24 04/28/2024 COMP. METAB OLIC PANEL (14) creatinine 0.83 mg/dL 0.57-1 .00 normal Not Available [facility] ([facility]) [address] [facility] [place], [address], 04/28/2024 06:08:31 04/27/20 24 04/28/2024 COMP. METAB OLIC PANEL (14) eGFR 84 mL/mi n/1.7 3 >59 normal Not Available [facility] ([facility]) [address] [facility] [place], [address], 04/28/2024 06:08:31 04/27/20 24 04/28/2024 COMP. METAB OLIC PANEL (14) BUN/creatini ne ratio 16 9-23 normal Not Available [facility] ([facility]) [address] [facility] [place], [address], 04/28/2024 06:08:31 04/27/20 24 04/28/2024 COMP. METAB OLIC PANEL (14) sodium 138 mmol/ L 134-14 4 normal Not Available [facility] ([facility]) [address] [facility] [place], [address], 04/28/2024 06:08:31 04/27/20 24 04/28/2024 COMP. METAB OLIC PANEL (14) potassium 3.9 mmol/ L 3.5-5. 2 normal Not Available [facility] ([facility]) [address] [facility], [place], [address], 04/28/2024 06:08:31 04/27/20 24 04/28/2024 COMP. METAB OLIC PANEL (14) chloride 105 mmol/ L 96-106 normal Not Available [facility] ([facility]) [address] [place], [address], 04/28/2024 06:08:31 04/27/20 24 04/28/2024 COMP. METAB OLIC PANEL (14) carbon dioxide, total 16 mmol/ L 20-29 below low normal Not Available [facility] ([facility]) [address] [place], [address], 04/28/2024 06:08:31 04/27/20 24 04/28/2024 COMP. METAB OLIC PANEL (14) calcium 9.2 mg/dL 8.7-10 .2 normal Not Available [facility] ([facility]) [address] [place], [address], 04/28/2024 06:08:31 04/27/20 24 04/28/2024 COMP. METAB OLIC PANEL (14) protein, total 6.9 g/dL 6.0-8. 5 normal Not Available [facility] ([facility]) [address] [place], [address], 04/28/2024 06:08:31 04/27/20 24 04/28/2024 COMP. METAB OLIC PANEL (14) albumin 4.0 g/dL 3.8-4. 9 normal Not Available [facility] ([facility]) [address] [place], [address], 04/28/2024 06:08:31 04/27/20 24 04/28/2024 COMP. METAB OLIC PANEL (14) globulin, total 2.9 g/dL 1.5-4. 5 Not Available [facility] ([facility]) [address] [place], [address], 04/28/2024 06:08:31 04/27/20 24 04/28/2024 COMP. METAB OLIC PANEL (14) bilirubin, total 0.2 mg/dL 0.0-1. 2 normal Not Available [facility] ([facility]) [address] [facility] [place], [address], 04/28/2024 06:08:31 04/27/20 24 04/28/2024 COMP. METAB OLIC PANEL (14) alkaline phosphatase 100 IU/L 44-121 normal Not Available [facility] ([facility]) [address] [facility] [place], [address], 04/28/2024 06:08:31 04/27/20 24 04/28/2024 COMP. METAB OLIC PANEL (14) AST (SGOT) 14 IU/L 0-40 normal Not Available [facility] ([facility]) [address] [facility] [place], [address], 04/28/2024 06:08:31 04/27/20 24 04/28/2024 COMP. METAB OLIC PANEL (14) ALT (SGPT) 19 IU/L 0-32 normal Not Available [facility] ([facility]) [address] [facility] [place], [address], 04/28/2024 06:08:31 04/27/20 24 04/28/2024 LIPID PANEL cholesterol, total 232 mg/dL 100-19 9 above high normal Not Available [facility] ([facility]) [address] [facility] [place], [address], 04/28/2024 06:08:31 04/27/2004/28/2024 LIPID PANEL triglyceride s 109 mg/dL 0-149 normal Not Available [facility] ([facility]) [address] [facility] [place], [address], 04/28/2024 06:08:31 04/27/20 24 04/28/2024 LIPID PANEL HDL cholesterol 94 mg/dL >39 normal Not Available [facility] ([facility]) [address] [place], [address], 04/28/2024 06:08:31 04/27/20 24 04/28/2024 LIPID PANEL VLDL cholesterol carter 19 mg/dL 5-40 Not Available [facility] ([facility]) [address] [place], [address], 04/28/2024 06:08:31 04/27/20 24 04/28/2024 LIPID PANEL LDL chol calc ([facility]) 119 mg/dL 0-99 above high normal Not Available [facility] ([facility]) [address] [place], [address], 04/28/2024 06:08:31 04/27/20 24 04/28/2024 LIPID PANEL LDL calc comment: ELECTRICIAN MAINTENANCE Not Available [facility] ([facility]) [address] [place], [address], 04/28/2024 06:08:31 04/27/2004/28/2024 HEMOG LOBIN A1C hemoglobin A1C 6.0 % 4.8-5. 6 above high normal Predi abete s: 5.7 - 6.4 Diabe anastacia: >6.4 Glyce kym contr ol for adult s with diabe anastacia: <7.0 Not Available [facility] ([facility]) [address] [place], [address], 04/28/2024 06:08:32 04/27/20 24 04/28/2024 TSH RFX ON ABNOR MAL TO FREE T4 TSH 1.550 uIU/m L 0.450- 4.500 normal Not Available [facility] ([facility]) [address] [place], [address], 04/28/2024 06:08:33 10/25/19 24 10/25/2023 MAMMO , scree tracey, digit al, bilat eral No observ ation record ed. [email or web address] [facility] [address], [place], [address], 10/25/2023 10:40:36 Result Notes None recorded. Problems Name Problem SNOMED Code Status Onset Date Resolution Date Notes Provider Name and Address Organization Details Recorded Time Amenorrh ea 98929811 Completed 201101/09/2014 RECORDED 03/02/20 12 1:19PM BY CHAGO MONTIEL ON/ADDEN DUM Demetrice WHITTAKERC [address], [place], [address] , [facility] 6 10:10:41 Acne 90839624 Completed 05/27/2017 Cesar nunez, [facility] 7 13:38:54 Acute frontal sinusiti s 29221527 Completed 200801/09/2014 RECORDED 02/07/20 09 8:16AM BY CHAGO MERCADO ON/ADDEN DUM Demetrice Rome PA-C [address], [place], [address] , [facility] 6 10:10:41 Acute pharyngi tis [id number] Completed 05/27/2017 RITA Montiel, [facility] 7 11:46:49 Acute sinusiti s 60196112 Completed 201201/09/2014 RECORDED 08/05/19 13 1:24AM BY AIDAN BARKER MA, ANNOTATI ON/ADDEN DUM RITA Montiel, [facility] 7 11:46:29 Urinary tract infectio us disease 71400831 Completed 201101/09/2014 RECORDED 03/02/20 12 1:19PM BY CHAGO MONTIEL ON/ADDEN DUM Demetrice WHITTAKERC [address], [place], [address] , [facility] 6 10:10:41 Allergic rhinitis 10860735 Active Not Available [facility] 3 11:37:50 Allergic rhinitis 03028491 Completed 200801/09/2014 IMPRESSI ON: WILL TAKE OTC ZYRTEC AND NASAL SPRAY, STOP BENADRYL ; RECORDED 02/07/20 09 8:16AM BY CHAGO MERCADO ON/ADDEN DUM Demetrice WHITTAKERC [address] [facility] [address], [place], [address] , [facility] 6 10:10:41 Anxiety state [id number] Active Not Available [facility] 3 11:37:50 Examinat ion for suspecte d mental disorder Completed 201301/09/2014 RECORDED 07/11/19 14 8:51AM BY CHAGO ESPARZA ON/ADDEN DUM Demetrice WHITTAKERC [address] [facility] [address], [place], [address] , [facility] 6 10:10:42 Screenin g for malignan t neoplasm of breast Completed 200901/09/2014 RECORDED 06/11/20 10 2:13PM BY MARILYN COVARRUBIAS, OFFICE VISIT Demetrice Rome PA-C [address] [facility] [address], [place], [address] , [facility] 6 10:10:42 Vaginiti s and vulvovag initis Completed 201101/09/2014 IMPRESSI ON: + GARDNERE LLA, SYMPTOMA TIC; RECORDED 03/02/20 12 1:20PM BY CHAGO MONTIEL ON/LUCÍAEN JUAN FRANCISCO WHITTAKERC [address] [facility] [address], [place], [address] , [facility] 6 10:10:41 Carpal tunnel syndrome [id number] Completed 200305/27/2017 Had surgery RITA Montiel, [facility] 7 11:47:24 Exposure to organism Completed 201101/09/2014 RECORDED 03/02/20 12 1:19PM BY CHAGO MONTIEL ON/ADDEN DUM Demetrice Wild VIEIRA [address] [facility] [address], [place], [address] , [facility] 6 10:10:41 Cough [id number] Completed 201101/09/2014 IMPRESSI ON: APPEARS VIRAL; RECORDED 03/02/20 12 1:20PM BY CHAGO MONTIEL ON/ADDEN DUM Demetricekayden Rome PA-C [address] [address], [place], [address] , [facility] 6 10:10:41 Depressi ve disorder 47839002 Completed 201307/08/2015 Cesar nunez, [facility] 9 16:38:20 Depressi ve disorder 12757367 Completed 201201/09/2014 RECORDED 08/05/19 13 1:24AM BY AIDAN BARKER MA, CHAGO ON/ADDEN DUM Cesar nunez, [facility] 9 16:38:20 Dysfunct ional uterine bleeding Completed 200203/29/2023 Jerry Jay MD [address] [facility], [place], [address] , [facility] 3 09:15:48 Dysphagi a [id number] Completed 201101/09/2014 RECORDED 03/02/20 12 1:20PM BY CHAGO MONTIEL ON/ADDEN DUM Demetrice Rome PA-C [address] [facility] [address], [place], [address] , [facility] 6 10:10:41 Malaise and fatigue 870202878 Completed 05/27/2017 Cesar nunez [facility] 7 13:38:33 Malaise and fatigue 583111031 Completed 201301/09/2014 IMPRESSI ON: CHECK FASTING; RECORDED 07/11/19 14 8:51AM BY CHAGO ESPARZA ON/ADDEN DUM Cesar Thad davisenzjoe nunez [facility] 7 13:38:33 Abdomina l pain 92399675 Completed 201101/09/2014 IMPRESSI ON: X 1 DAY. NO URINARY SXS, F/C OR GI SXS, BLOOD MOST LIKELY SECONDAR Y TO MENSES. REST, WARM COMPRESS ES, PAIN MED PRN. TO MONITOR URINE AT HOME (PROVIDE D WITH STRAINER ) AND WE WILL ARRANGE FOR US TOMORROW . CONTACT US SOONER PRN.; RECORDED 03/02/20 12 1:19PM BY CHAGO MONTIEL ON/ADDEN DUM Demetrice Rome PA-C [address] [facility] [address], [place], [address] , [facility] 6 10:10:41 Influenz a vaccine needed 99779678937 06 Completed 200901/09/2014 RECORDED 06/24/20 10 12:51PM BY MARILYN COVARRUBIAS, HISTORIC AL SUMMARY Demetrice Rome PA-C [address] [facility], [place], [address] , [facility] 6 10:10:41 Gastroes ophageal reflux disease 786358276 Active Not Available [facility] 3 11:37:50 Adult health examinat ion Completed 201201/09/2014 IMPRESSI ON: PAP AND MAMMOGRA M UTD (HAS APPT FOR MAMMO). WILL START EXERCISI NG CHANGING EATING HABITS.; RECORDED 01/06/20 13 10:33AM BY CHAGO MONTIEL ON/ADDEN DUM Demetrice Rome PA-C [address] [facility], [place], [address] , [facility] 6 10:10:42 Well child 225696501 Completed 201101/09/2014 RECORDED 03/02/20 12 1:20PM BY CHAGO MONTIEL ON/ADDEN DUM Demetrice Rome PA-C [address], [place], [address] , [facility] 6 10:10:42 Headache 50620483 Completed 201101/09/2014 RECORDED 03/02/20 12 1:20PM BY CHAGO MONTIEL ON/ADDEN DUM Demetrice Rome PA-C [address], [place], [address] , [facility] 6 10:10:41 Pure hypercho lesterol emia 894710502 Completed 201301/09/2014 IMPRESSI ON: CHECK FASTING; RECORDED 07/11/19 14 8:51AM BY CHAGO ESPARZA ON/ADDEN DUM Demetrice Rome PA-C [address], [place], [address] , [facility] 6 10:10:41 Irritabl e bowel syndrome 23312533 Active Not Available [facility] 3 11:37:50 Breast lump 82757655 Completed 201101/09/2014 RECORDED 03/02/20 12 1:20PM BY CHAGO MONTIEL ON/ADDEN DUM Demetrice Rome PA-C [address], [place], [address] , [facility] 6 10:10:41 Migraine 71077696 Completed 201301/09/2014 STORY: PT NEEDS RE-EVAL W/ PMD; RECORDED 07/11/19 14 8:50AM BY CHAGO ESPARZA ON/ADDEN DUM Demetrice Rome PA-C [address], [place], [address] , [facility] 6 10:10:41 Ulcerati ve rhinitis 93271426 Completed 200801/09/2014 RECORDED 02/07/20 09 8:16AM BY CHAGO MERCADO ON/ADD Demetrice CuellarMercantec-C [address], [place], [address] , [facility] 6 10:10:41 Palpitat ions 13445849 Com[facility]27[facility]2017 [facility] 7 13:38:45 Tobacco user 026607513 Completed 07/08/2015 Demetrice Rome [employer]-C [address], [place], [address] , [facility] 6 10:10:41 History of clinical finding in subject 830547666 Completed 07/09/2015 Demetrice LYMANAutoquakeC [address], [place], [address] , [facility] 6 10:10:41 Eruption 477418615 Completed 201101/09/2014 IMPRESSI ON: SUSPECT SECONDAR Y TO STREP THROAT INFECTIO N. DOES NOT APPEAR TO BE SCARLET FEVER THOUGH; RECORDED 03/02/20 12 1:19PM BY CHAGO MONTIEL ON/ADD Demetrice Cuellarden ESMERAutoquakeC [address], [place], [address] , [facility] 6 10:10:41 Chronic sinusiti s 55068247 Completed 05/27/2017 Cesar nunez, [facility] 7 13:38:40 Screenin g for malignan t neoplasm of colon Completed 201101/09/2014 RECORDED 03/02/20 12 1:19PM BY CHAGO MONTIEL ON/ADD Demetrice LYMANAutoquakeC [address], [place], [address] , [facility] 6 10:10:42 Streptoc occal sore throat 03371934 Completed 201101/09/2014 IMPRESSI ON: + RAPID STREP, 3RD EPISODE OF STREP IN 3 MONTHS; RECORDED 03/02/20 12 1:19PM BY CHAGO MONTIEL ON/ADDEN DUM Demetrice Rome PA-C [address], [place], [address] , [facility] 6 10:10:41 Synoviti s/tenosy novitis - hand 065982190 Completed 201201/09/2014 RECORDED 09/06/19 13 9:01AM BY ELSIE YI MA, CHAGO ON/ADDEN DUM Demetrice Rome PA-C [address] [facility] [address], [place], [address] , [facility] 6 10:10:41 Administ ration of diphther ia, pertussi s, and tetanus vaccine Completed 201301/09/2014 RECORDED 07/11/19 14 8:51AM BY CELESTE MATT I, CHAGO ON/ADDEN DUM Demetrice Rome ESMER-C [address] [facility] [address], [place], [address] , [facility] 6 10:10:41 Tobacco dependen ce syndrome 70664452 Completed 05/27/2017 Quit 2008 Marilyn Covarrubias MA null, [facility] 7 11:47:30 Infectio n by Surjit geller 82765402 Completed 201101/09/2014 RECORDED 03/02/20 12 1:20PM BY CHAGO MONTIEL ON/ADDEN DUM Demetricekayden LYMAN-C [address] [facility] [address], [place], [address] , [facility] 6 10:10:41 Acute upper respirat ory infectio n 56763698 Completed 201301/09/2014 IMPRESSI ON: BETTER, RADHA G, WORK NOTE OK TO RETURN TO WORK; RECORDED 07/11/19 14 8:51AM BY CELESTE MATT I ANNOTATI ON/ADDEN DUM RITA Montiel, [facility] 7 11:46:53 Pruritus of genital organs 910349813 Completed 201101/09/2014 RECORDED 03/02/20 12 1:20PM BY CHAGO MONTIEL ON/ADDEN DUM Demetrice Rome PA-C [address] [facility] [address] [facility] [address], [place], [address] , [facility] 6 10:10:41 Viral disease 62108043 Completed 201101/09/2014 RECORDED 03/02/20 12 1:19PM BY CHAGO MONTIEL ON/ADDEN DUM Demetrice Rome PA-C [address] [facility], [place], [address] , [facility] 6 10:10:41 Acute upper respirat ory infectio n 88748009 Completed 05/27/2017 RITA Montiel, [facility] 7 11:46:53 Candidal vulvovag initis 15312453 Completed 200801/09/2014 IMPRESSI ON: TX FOR YEAST VAGINITI S; RECORDED 02/07/20 09 8:16AM BY CHAGO MERCADO ON/ADDEN DUM Demetrice Rome TN-C [address] [facility] [address] [facility] [address], [place], [address] , [facility] 6 10:10:41 Left flank pain 578613991 Completed 05/27/2017 RITA Montiel, [facility] 7 11:46:36 Pyelonep hritis 61264217 Completed 05/27/2017 RITA Montiel, [facility] 7 11:47:21 Amenorrh ea 89100401 Completed 201102/05/2014 RECORDED 03/02/20 12 1:19PM BY CHAGO MONTIEL ON/ADDEN DUM Demetrice Wild PA-C [address], [place], [address] , [facility] 6 10:10:41 Acute frontal sinusiti s 31696225 Completed 200802/05/2014 RECORDED 02/07/20 09 8:16AM BY CHAGO MERCADO ON/ADDEN DUM Demetrice Wild PA-C [address], [place], [address] , [facility] 6 10:10:41 Acute sinusiti s 06105147 Completed 201202/05/2014 RECORDED 08/05/19 13 1:24AM BY AIDAN BARKER MA, ENAATI ON/ADDEN DUM [facility] 7 11:46:29 Urinary tract infectio us disease 32548836 Completed 201102/05/2014 RECORDED 03/02/20 12 1:19PM BY CHAGO MONTIEL ON/ADDEN DUM Demetrice Widl LYMAN-C [address] [facility] [address], [place], [address] , [facility] 6 10:10:41 Examinat ion for suspecte d mental disorder Completed 201302/05/2014 RECORDED 07/11/19 14 8:51AM BY CHAGO ESPARZA ON/ADDEN DUM Demetrice Wild LYMAN-C [address] [facility] [address] [facility] [address], [place], [address] , [facility] 6 10:10:42 Screenin g for malignan t neoplasm of breast Completed 200902/05/2014 RECORDED 06/11/20 10 2:13PM BY MARILYN COVARRUBIAS, OFFICE VISIT Demetrice LYMAN-C [address], [place], [address] , [facility] 6 10:10:42 Vaginiti s and vulvovag initis Completed 201102/05/2014 IMPRESSI ON: + GARDNERE LLA, SYMPTOMA TIC; RECORDED 03/02/20 12 1:20PM BY CHAGO MONTIEL ON/ADDEN DUM Demetrice Rome PA-C [address], [place], [address] , [facility] 6 10:10:41 Exposure to organism Completed 201102/05/2014 RECORDED 03/02/20 12 1:19PM BY CHAGO MONTIEL ON/ADDEN DUM Demetrice Rome PA-C [address] [facility] [address] [facility] [address], [place], [address] , [facility] 6 10:10:41 Cough 16562699 Completed 201102/05/2014 IMPRESSI ON: APPEARS VIRAL; RECORDED 03/02/20 12 1:20PM BY CHAGO MONTIEL ON/ADDEN DUM Demetrice Rome PA-C [address] [facility] [address] [facility] [address], [place], [address] , [facility] 6 10:10:41 Dysphagi a 62804817 Completed 201102/05/2014 RECORDED 03/02/20 12 1:20PM BY CHAGO MONTIEL ON/ADDEN DUM Demetrice Rome PA-C [address] [facility] [address] [facility] [address], [place], [address] , [facility] 6 10:10:41 Abdomina l pain 78187215 Completed 201102/05/2014 IMPRESSI ON: X 1 DAY. NO URINARY SXS, F/C OR GI SXS, BLOOD MOST LIKELY SECONDAR Y TO MENSES. REST, WARM COMPRESS ES, PAIN MED PRN. TO MONITOR URINE AT HOME (PROVIDE D WITH STRAINER ) AND WE WILL ARRANGE FOR US TOMORROW . CONTACT US SOONER PRN.; RECORDED 03/02/20 12 1:19PM BY CHAGO MONTIEL ON/ADDEN DUM Demetrice Rome PA-C [address], [place], [address] , [facility] 6 10:10:41 Influenz a vaccine needed 40764493457 06 Completed 200902/05/2014 RECORDED 06/24/20 10 12:51PM BY MARILYN COVARRUBIAS, HISTORIC AL SUMMARY Demetrice LYMAN-C [address] [facility] [address] [facility] [address], [place], [address] , [facility] 6 10:10:41 Adult health examinat ion Completed 201202/05/2014 IMPRESSI ON: PAP AND MAMMOGRA M UTD (HAS APPT FOR MAMMO). WILL START EXERCISI NG CHANGING EATING HABITS.; RECORDED 01/06/20 13 10:33AM BY CHAGO MONTIEL ON/ADDEN DUM Demetrice Rome PA-C [address], [place], [address] , [facility] 6 10:10:42 Well child 143944345 Completed 201102/05/2014 RECORDED 03/02/20 12 1:20PM BY CHAGO MONTIEL ON/ADDEN DUM Demetrice Rome PA-C [address] [facility] [address] [facility] [address], [place], [address] , [facility] 6 10:10:42 Headache 48161559 Completed 201102/05/2014 RECORDED 03/02/20 12 1:20PM BY CHAGO MONTIEL ON/ADDEN DUM Demetrice Rome PA-C [address], [place], [address] , [facility] 6 10:10:41 Pure hypercho lesterol emia 524814089 Completed 201302/05/2014 IMPRESSI ON: CHECK FASTING; RECORDED 07/11/19 14 8:51AM BY CHAGO ESPARZA ON/ADDEN DUM Demetrice Rome PA-C [address], [place], [address] , [facility] 6 10:10:41 Breast lump 36314481 Completed 201102/05/2014 RECORDED 03/02/20 12 1:20PM BY CHAGO MONTIEL ON/ADDEN DUM Demetrice Rome PA-C [address], [place], [address] , [facility] 6 10:10:41 Migraine 57421390 Completed 201302/05/2014 STORY: PT NEEDS RE-EVAL W/ PMD; RECORDED 07/11/19 14 8:50AM BY HCAGO ESPARZA ON/ADDEN DUM Demetrice Rome PA-C [address], [place], [address] , [facility] 6 10:10:41 Ulcerati ve rhinitis 38081722 Completed 200802/05/2014 RECORDED 02/07/20 09 8:16AM BY CHAGO MERCADO ON/ADDEN DUM Demetrice Rome PA-C [address], [place], [address] , [facility] 6 10:10:41 Eruption 906523144 Completed 201102/05/2014 IMPRESSI ON: SUSPECT SECONDAR Y TO STREP THROAT INFECTIO N. DOES NOT APPEAR TO BE SCARLET FEVER THOUGH; RECORDED 03/02/20 12 1:19PM BY CHAGO MONTIEL ON/ADDEN DUM Demetrice Rome PA-C [address], [place], [address] , [facility] 6 10:10:41 Screenin g for malignan t neoplasm of colon Completed 201102/05/2014 RECORDED 03/02/20 12 1:19PM BY CHAGO MONTIEL ON/ADDEN DUM Demetrice Rome PA-C [address], [place], [address] , [facility] 6 10:10:42 Streptoc occal sore throat 81233655 Completed 201102/05/2014 IMPRESSI ON: + RAPID STREP, 3RD EPISODE OF STREP IN 3 MONTHS; RECORDED 03/02/20 12 1:19PM BY CHAGO MONTIEL ON/ADDEN DUM Demetrice [employer] PA-C [address] [facility] [address], [place], [address] , [facility] 6 10:10:41 Synoviti s/tenosy novitis - hand 274580536 Completed 201202/05/2014 RECORDED 09/06/19 13 9:01AM BY ELSIE YI MA, CHAGO ON/ADDEN DUM Demetrice [employer] [address] [facility] [address], [place], [address] , [facility] 6 10:10:41 Administ ration of diphther ia, pertussi s, and tetanus vaccine Completed 201302/05/2014 RECORDED 07/11/19 14 8:51AM BY CHAGO ESPARZA ON/ADDEN DUM Demetrice ColibriaC [address] [facility] [address], [place], [address] , [facility] 6 10:10:41 Infectio n by Trichomo yimi 84449129 Completed 201102/05/2014 RECORDED 03/02/20 12 1:20PM BY CHAGO MONTIEL ON/ADDEN DUM Demetrice ColibriaC [address] [facility] [address], [place], [address] , [facility] 6 10:10:41 Acute upper respirat ory infectio n 64214958 Completed 201302/05/2014 IMPRESSI ON: BETTER, RESOLVIN G, WORK NOTE OK TO RETURN TO WORK; RECORDED 07/11/19 14 8:51AM BY CHAGO ESPARZA ON/ADDEN DUM [facility]ilyn [facility] 7 11:46:53 Pruritus of genital organs 026320618 Completed 201102/05/2014 RECORDED 03/02/20 12 1:20PM BY CHAGO MONTIEL ON/ADDEN DUM Demetrice Rome PA-C [address], [place], [address] , [facility] 6 10:10:41 Viral disease 62202530 Completed 201102/05/2014 RECORDED 03/02/20 12 1:19PM BY CHAGO MONTIEL ON/ADDEN DUM Demetrice Rome PA-C [address], [place], [address] , [facility] 6 10:10:41 Candidal vulvovag initis 95903285 Completed 200802/05/2014 IMPRESSI ON: TX FOR YEAST VAGINITI S; RECORDED 02/07/20 09 8:16AM BY CHAGO MERCADO ON/ADDEN DUM Demetrice Rome PA-C [address], [place], [address] , [facility] 6 10:10:41 Migraine 55560435 Active Not Available [facility] 3 11:37:50 Sleep apnea 54411124 Completed 07/09/2015 Demetrice LYMAN-C [address], [place], [address] , [facility] 6 10:10:41 Body mass index 30+ - obesity 533769129 Completed 07/06/2018 Removal Reason: BMI increase d Jolie nunez [facility] 9 10:16:54 Acute sinusiti s 11831780 Completed 05/27/2017 RITA Montiel, [facility] 7 11:46:29 Obstruct favian sleep apnea syndrome 94605230 Active on CPAP Not Available [facility] 3 11:37:50 Impaired fasting glycemia 994223104 Completed 05/27/2017 RITA Montiel, [facility] 7 11:47:01 Uncontro lled type 2 diabetes mellitus 362930075 Completed 05/27/2017 A1C was 6.1; diet-con trolled RITA Montiel, [facility] 7 11:47:16 Diabetes mellitus 11943671 Completed 05/27/2017 RITA Montiel, [facility] 7 13:01:55 Impaired glucose toleranc e 2476603 Completed 04/03/2024 Jerry Jay MD [address], [place], [address] , [facility] 4 17:33:08 Morbid obesity 020853888 Completed 05/27/2017 RITA Montiel, [facility] 7 11:47:45 Depressi ve disorder 22924272 Completed 05/27/2017 Cesar nunez [facility] 9 16:38:20 Severe obesity 82923789211 104 Active 2018 Not Available [facility] 3 11:37:50 Depressi ve disorder 64126716 Completed 201810/26/2018 Cesar nunez [facility] 9 16:38:20 Deep venous thrombos is of upper extremit y 011803753 Completed 201803/29/2023 Resolved with 3 mos darrell Jay MD [address], [place], [address] , [facility] 3 09:15:30 Chronic back pain 216316120 Active 2018 Follows PSSP. Jerry Jay MD [address], [place], [address] , [facility] 3 09:14:50 Chronic vascular insuffic iency 57310974 Completed 201903/29/2023 Jerry Jay MD [address] [address], [place], [address] , [facility] 3 09:13:49 Candidia sis of mouth 86200593 Completed 202003/29/2023 Jerry Jay MD [address] [address], [place], [address] , [facility] 3 09:14:09 Suspecte d COVID-19 042252092 Completed 01/29/2021 Removal Reason: Problem added by user [email or web address] 5 from the COVID-19 watch flag Winnie Ulloa mayra, [facility] 1 10:02:17 History of deep vein thrombos is 363475152 Active 2022 Upper ext. on left side. s/p carpel tunnel. Jerry Jay MD [address] [address], [place], [address] , [facility] 3 09:15:28 Asthma 223685633 Active 2022 Jerry Jay MD [address] [address], [place], [address] , [facility] 3 09:17:38 Genital herpes simplex 31572339 Active 2022 Jerry Jay MD [address] [address], [place], [address] , [facility] 3 09:18:22 Chronic alcoholi sm in remissio n 007254043 Active 2022 Jerry Jay MD [address] [address], [place], [address] , [facility] 3 09:20:45 Temporom andibula r joint disorder 05580068 Active 2022 Jerry Jay MD [address] [address], [place], [address] , [facility] 3 09:38:01 SARS-CoV -2 Completed 202304/03/2024 Jerry Jay MD [address], [place], [address] , [facility] 4 17:33:15 Prediabe anastacia 080114579 Active 2023 Jerry Jay MD [address], [place], [address] , [facility] 4 17:31:04 History of SARS-CoV -2 [id number] 8219267 Active 2023 Jerry Jay MD [address], [place], [address] , [facility] 4 17:33:23 Dependen ce on continuo us positive airway pressure ventilat ion 429073770 Active 2023 Jerry Jay MD [address], [place], [address] , [facility] 4 14:59:07 Ex-smoke r 7403581 Active 2023 Jerry Jay MD [address] [facility] [address], [place], [address] , [facility] 4 14:59:29 Problem Notes None recorded. Procedures Surgical History Date Name Laterality Status Provider Name and Address Organization Details Recorded Time 024 Most Recent Mammogram completed Kourtney Gaxiola [facility] 10/25/2023 10:40:27 024 Mammogram Diagnostic Bilateral completed Aidan Zurita MA [facility] 04/04/2024 14:43:06 023 Date of Last Pap Smear completed Marilyn Covarrubias MA [facility] 03/29/2023 09:08:16 020 Date of Last Colonoscopy completed Echo Morgan [facility] 05/17/2020 14:38:45 020 Colonoscopy completed Echo Eddie [facility] 05/17/2020 14:38:28 019 Orthopedic Surgery completed Eldarhea Henry [facility] 06/16/2019 14:51:44 018 Laparo cholecystectomy/gr aph completed Elda Lopez [facility] 03/25/2018 16:44:22 018 Cholecystectomy completed Elda Lopez [facility] 03/25/2018 16:36:17 004 Carpal tunnel surgery completed Aidan Zurita MA [facility] 06/01/2014 15:17:04 981 Anesth surgery of shoulder completed Aidan Zurita MA [facility] 06/01/2014 15:17:04 Imaging Results Imaging Date Name Status LastModified by Organiz ation Details LastModified Time 10/25/2023 MAMMO, screening, digital, bilateral completed [email or web address] [facility] [address], [place], [address], 10/25/2023 10:40:36 Procedure Notes None recorded. Medical Equipment None Reported. Allergies Allergen ID Allergen Name Allergen Category Reaction Reaction Severity Criticality Documentation Date Start Date Code Code System Note Provider Name and Address Organization Details Recorded Time 36867 ricki extract food anaphylax is Not available Not available 05/23/2018 95766 32 RxNorm RITA Montiel [facility] 8 16:16:42 6073 Augmentin medicatio n other Not available Not available 01/09/20142013 75942 2 RxNorm RITA De Anda [facility] 4 15:07:34 6074 erythromy sabrina medicatio n vomiting Not available Not available 01/09/20142013 4053 RxNorm Aidan Daly-M attos, [place] null, [facility] 4 15:07:34 6075 tree nut food anaphylax is Not available Not available 01/09/20142013 05223 [facility] 4 15:07:34 6076 pineapple allergeni c extract food,medi cation other Not available Not available 01/09/20142013 96203 5 [facility]Norm [facility] 4 15:07:34 Medications Name Sig Start Date Stop Date Status Note LastModified by Organization Details LastModified Time valacyclo vir hcl 500 mg tabs 1 po daily 12/08 completed Not Available Not Available Not Available omeprazol e 20 mg cpdr active Not Available Not Available Not Available terconazo le 0.8 % crea 12/08 completed Not Available Not Available Not Available aviane 0.1-20 mg-mcg tabs 1 po daily 12/08 completed Not Available Not Available Not Available epipen 2-marco 0.3 mg/0.3ml soaj inject 1 auto intramus cular as needed 12/16 completed Not Available Not Available Not Available clindamyc in phosphate 2 % crea active Not Available Not Available Not Available allergy relief 10 mg tabs active Not Available Not Available Not Available citalopra m hydrobrom kerry 20 mg tabs 1 tablet daily by mouth 05/27 completed Not Available Not Available Not Available topiramat e 25 mg tabs active Not Available Not Available Not Available azithromy sabrina 250 mg tabs active Not Available Not Available Not Available hydrocodo ne/acetam inophen 5-325 mgtabs active Not Available Not Available Not Available cyclobenz aprine 10 mg tablet 3 TIMES A DAY PRN 01/25 completed RECORDED 03/30/20 11 9:00AM BY KASSI YI, ISHA, MEDICATI ON AUTO-HARMEET CTIVATIO N; Not Available Not Available Not Available amoxicill in 500 mg capsule I TAB EVERY 8 HRS UNTIL GONE. 12/11 completed Not Available Not Available Not Available furosemid e 40 mg tablet TAKE 1 TABLET BY MOUTH TWICE A DAY 07/13 completed Not Available Not Available Not Available fluconazo le 100 mg tablet On day 1 take 2 tablet as a loading dose (200mg), then 1 tablet (100mg) for the followin g 6 days daily. 01/13 completed Not Available Not Available Not Available Augmentin 875 mg-125 mg tablet Take 1 tablet every 12 hours by oral route for 10 days. 2014 active Not Available Not Available Not Avai lable budesonid e 32 mcg/actua tion nasal spray,aer osol DAILY 01/11 completed RECORDED 01/12/20 09 11:36AM BY RITA CHAPMAN, OFFICE VISIT; Not Available Not Available Not Available nystatin 100,000 unit/mL oral suspensio n TAKE 5 ML 4 TIMES A DAY BY MOUTH FOR 14 DAYS. 01/13 completed Not Available Not Available Not Available prednison e 10 mg tablet TAKE 4 TABS BY MOUTH DAILY DIRECTED X3 DAYS, THEN DECREASE BY 1 TAB EVERY 3 DAYS 03/29 completed Not Available Not Available Not Available doxycycli ne hyclate 100 mg capsule TWO TIMES DAILY 08/11 completed RECORDED 10/27/19 14 8:51AM BY SAMI ENNIS PA-C, MEDICATI ON AUTO-HARMEET CTIVATIO N; Not Available Not Available Not Available Rhinocort Aqua 32 mcg/actua tion nasal spray [place] 2sprays each nostril daily 2014 active Not Available Not Available Not Avai lable torsemide 20 mg tablet TAKE 2 TABLETS BY MOUTH EVERY DAY 01/13 completed 06/29 prn Not Available Not Available Not Available cetirizin e 10 mg tablet Take 1 tablet every day by oral route for 90 days. active Not Available Not Available No t Available azithromy sabrina 250 mg tablet QD 07/21 completed Not Available Not Available Not Available ibuprofen 800 mg tablet TAKE 1 TABLET BY MOUTH THREE TIMES A DAY WITH FOOD 03/27 completed Not Available Not Available Not Available fluconazo le 150 mg tablet TAKE 1 TABLET EVERY 72 HOURS BY ORAL ROUTE DIRECTED . 12/18 /2024 completed Not Available Not Available Not Available benzonata te 200 mg capsule 11/30 completed Not Available Not Available Not Available fluconazo le 200 mg tablet 01/13 completed Not Available Not Available Not Available metronida zole 0.75 % (37.5 mg/5 gram) vaginal gel DAILY 08/13 completed RECORDED 08/13/19 11 11:24AM BY SAMI ENNIS PA-C, MEDICATI ON AUTO-HARMEET CTIVATIO N; Not Available Not Available Not Available prednison e 20 mg tablet Take 2 tablets every day by oral route with meals for 7 days. active Not Available Not Available No t Available prednison e 5 mg tablet 07/06 completed Not Available Not Available Not Available terconazo le 0.8 % vaginal cream INSERT 1 APPLICAT ORFUL VAGINALL Y AT BEDTIME FOR 3 DAYS 06/14 completed Not Available Not Available Not Available Cleocin 100 mg vaginal supposito ry active Not Available Not Available Not Available penicilli n V potassium 500 mg tablet 3 TIMES A DAY 12/31 completed RECORDED 01/26/20 12 9:41AM BY ESMER MONTELONGO, MEDICATI ON AUTO-HARMEET CTIVATIO N; Not Available Not Available Not Available topiramat e 25 mg tablet TAKE 2 TABLETS BY MOUTH TWICE A DAY 11/29 completed Not Available Not Available Not Available metronida zole 500 mg tablet BID active Not Available Not Available No t Available ciproflox acin 250 mg tablet BID 01/26 completed RECORDED 03/30/20 11 9:00AM BY KASSI YI PA-C, MEDICATI ON AUTO-HARMEET CTIVATIO N; Not Available Not Available Not Available valacyclo vir 500 mg tablet TAKE 1 TABLET BY MOUTH DAILY active Not Available Not Available No t Available ciproflox acin 500 mg tablet 06/16 completed Not Available Not Available Not Available sulfameth oxazole 800 mg-trimet hoprim 160 mg tablet active Not Available Not Available Not Available meloxicam 7.5 mg tablet TAKE 1 TABLET BY MOUTH ONCE A DAY. DO NOT TAKE WITH OTHER NSAIDS. 08/27 completed Not Available Not Available Not Available Fluticaso ne Propionat e (Inhal) 50 mcg/BLIST inhl powd DAILY 2013 active RECORDED 07/19/19 14 1:15PM BY SAMI ENNIS PA-C, PRESCRIP TION REFILL; Not Available Not Available Not Available amoxicill in 875 mg tablet EVERY 12 HOURS 07/06 completed Not Available Not Available Not Available citalopra m 20 mg tablet TAKE 1 TABLET BY MOUTH EVERY DAY 11/29 completed Not Available Not Available Not Available methocarb jeferson 750 mg tablet Take by oral route for 5 days. 03/27 completed Not Available Not Available Not Available clindamyc in 1 % topical gel APPLY THIN LAYER TO ACNE-LIK E LESIONS B/L CHEEKS TWICE A DAY UNTIL HEALED active Not Available Not Available No t Available benzonata te 100 mg capsule TAKE 1 CAPSULE BY MOUTH THREE TIMES A DAY FOR 5 DAYS 09/27 completed Not Available Not Available Not Available doxycycli ne monohydra te 100 mg capsule TAKE 1 CAPSULE BY MOUTH TWICE A DAY 06/14 completed Not Available Not Available Not Available nystatin 100,000 unit/gram topical cream APPLY TO AFFECTED AREA TWICE A DAY FOR 7 DAYS 12/11 completed Not Available Not Available Not Available ranitidin e 150 mg tablet BID 09/26 completed RECORDED 09/27/19 08 10:02AM BY AIDAN BARKER MA, OFFICE VISIT; Not Available Not Available Not Available nystatin- triamcino lone 100,000 unit/g-0. 1 % topical cream active Not Available Not Available Not Available mupirocin calcium 2 % topical cream THREE TIMES DAILY 01/11 completed RECORDED 01/12/20 09 11:36AM BY RITA CHAPMAN, OFFICE VISIT; Not Available Not Available Not Available betametha sone dipropion ate 0.05 % topical cream APPLY THIN LAYER TO LEG RASH TWICE A DAY NEEDED active Not Available Not Available No t Available omeprazol e 20 mg capsule,d elayed release Take 1 capsule twice a day by oral route. active Not Available Not Available No t Available Astelin 137 mcg (0.1 %) nasal spray DAILY 01/11 completed RECORDED 01/12/20 09 11:36AM BY RITA CHAPMAN, OFFICE VISIT; Not Available Not Available Not Available isomethep tene-dich loralphen -acetamin ophen 65 mg-100 mg-325 mg capsule Take 2 capsules as needed by oral route as directed for 30 days. active Not Available Not Available No t Available Plan B 0.75 mg tablet Q 12 HOURS 01/11 completed RECORDED 01/12/20 09 11:36AM BY RITA CHAPMAN, OFFICE VISIT; Not Available Not Available Not Available monteluka st 10 mg tablet TAKE 1 TABLET BY MOUTH EVERY DAY active Not Available Not Available No t Available topiramat e 200 mg tablet TAKE 1 TABLET BY MOUTH EVERYDAY AT BEDTIME active Not Available Not Available No t Available furosemid e 20 mg tablet TAKE 1 TABLET BY MOUTH EVERY DAY 07/13 completed Not Available Not Available Not Available Levaquin 500 mg tablet Take 1 tablet every 24 hours by oral route in the morning for 10 days. 01/29 completed Not Available Not Available Not Available gabapenti n 100 mg capsule TAKE 1 CAPSULE BY MOUTH 3 TIMES A DAY FOR 10 DAYS. 09/07 completed Not Available Not Available Not Available Tylenol-C odeine #3 300 mg-30 mg tablet EVERY 6 HOURS NEEDED 01/22 completed RECORDED 01/23/20 11 12:11PM BY KASSI YI PA-C, MEDICATI ON AUTO-HARMEET CTIVATIO N; Not Available Not Available Not Available methylpre dnisolone 4 mg tablets in a dose pack TAKE 6 TABLETS ON DAY 1 DIRECTED ON PACKAGE AND DECREASE BY 1 TAB EACH DAY FOR A TOTAL OF 6 DAYS 09/27 completed Not Available Not Available Not Available albuterol sulfate HFA 90 mcg/actua tion aerosol inhaler INHALE 2 PUFFS BY MOUTH EVERY 2 HOURS NEEDED FOR SHORTNES S OF BREATH OR WHEEZING active Not Available Not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 11/30/2017 14:02:13 11/30/2017 14:59:47 Wheezing 80390447 R06.2 after UD a bit more open, recc prn inhaler, she has one Acute sinusitis 54655351 J01.90 will tx with abx, ill for over 2 weeks, use sinus washing [id number] Kaila Liv Main Office [address] [address] [place] [address] 01/10/2018 10:45:09 01/10/2018 11:52:54 Upper abdominal pain 26550027 R10.10 RUQ pt with very poor eating habits, fast food often, weight gain, 3 drinks a night, ? biliary colic, will check labs, US and make decision from there, any worsening needs to go to ER, long talk on lowering or stopping alcohol consumptio n and stopping eating fast food. no hx of evidence of pancreatit is by exam Body mass index 40+ - severely obese 661848123 E66.01 Z68.41 long talk about stopping fast food, lowering alcohol [id number] Cesar mcwilliams Main Office [address] [address] [place] [address] 05/23/2018 16:06:30 05/23/2018 16:54:22 Adult health examination 407749788 Z00.00 pt knows to keep utd with her screening, mom with rectal cancer, sees [facility] for colonoscop y Low back pain 360572880 M54.5 pt will see [facility] Body mass index 40+ - severely obese 148807508 E66.01 Z68.42 long talk about stopping fast food, lowering alcohol [id number] Jolie Alvarez Main Office [address] [address] [place] [address] 07/06/2018 08:49:09 07/06/2018 09:31:18 Pneumonia 821338187 J18.9 Fatigue 93361178 R53.83 labs today Wheezing 29187676 R06.2 duoneb treatment today, feeling better, can try proair at home as needed. Body mass index 40+ - severely obese 091474350 Z68.42 pt needs to work on increasing exercise and control portion sizes Chronic rhinitis 3585003 6 J31.0 Severe obesity 577499442 1 9104 E66.01 [id number] Cesar mcwilliams Main Office [address] [facility] [address] [place] [address] 10/26/2018 15:52:37 10/26/2018 17:07:58 Cough 77420136 R05 see workup below Dyspnea 985538375 R06.02 check labs and treat for asthma. Seasonal a llergic rhinitis 151168403 J30.2 start med, has asthma and allergies [id number] Demetrice Rome PA-C Main Office [address] [facility] [address] [place] [address] 12/15/2018 08:25:15 12/16/2018 14:39:51 [id number] Demetrice Rome PA-C Main Office [address] [facility] [address] [place] [address] 12/16/2018 13:52:57 12/16/2018 14:50:29 Deep venous thrombosis of upper extremity 694192162 I82.609 D/c control. WE discussed having to lose weight. PT. has been lowering total calories and lost 4 lbs already. Vascular referral to f/u on clot burden as well as see what is the recommenda tion on duration of anticoagul ation therpay w/i 2 weeks time. Continue Eliquis starting pack and get into maintenanc e dose. Pt. d/omer control. REports not beeing sexually active at tis point. [id number] Jolie Alvarez Main Office [address] [facility] [address] [place] [address] 06/16/2019 14:22:23 06/16/2019 15:29:37 Adult health examination 307130885 Z00.00 Pt is in good general health. Social and family history reviewed. Immunizati ons reviewed, advised annual flu shot. She is upt to date on dental and eye providers, mammogram up to date, colon not due yet, Reviewed diet and exercise and need for wt loss Anxiety state 918516071 F41.1 stable on current dose of citalopram . Obstructiv e sleep apnea syndrome 37204749 G47.33 uses cpap intemitten tly Body mass index 40+ - severely obese 716938879 Z68.42 pt needs to work on increasing exercise and control portion sizes. she states she cannot exercise due to back problem. She does not seem motivated to make changes for wt loss at this time. Chronic back pain 592666 002 M54.9 Gastroesop hageal reflux disease 957029866 K21.9 stable on PPI for now, states she has had EGD in the past, no Barretts. Major depr ession single episode, in partial remission 73464587 F32.4 stable on meds, also has social anxiety Migraine 88555710 G43.90 9 controlled on topamax and uses prn meds Chronic cough 28182385 R 05 restart nasonex and zyrtec, continue singulair, recheck in 4-6 weeks Morbid obesity 740684511 E66.01 [id number] Main Office [address] [place] [address] 07/21/2019 16:03:33 07/21/2019 17:05:50 Dyspnea on exertion 51964296 R06.09 EKG without acute changes, reviewed with Dr Toi Rowe. Sent for STAT labs now and chest xray to r/o PE, CHF, pneumonia. If all labs and xray ok would consider proair inhaler. Would followp with cardiology and pulmonary evaluation s.ADDENDUM : Labs normal, dDimer not back yet, pt will try Wixela which she has at home. Will proceed with consultati on. Advised to call or go to ED if any worsening symptoms such or with any CP, increased leg edema or calf pain. [id number] Abhilash Rome PA-C Tele[facility] [address] [place] [address] 02/20/2020 13:36:20 02/20/2020 16:03:31 Dependent edema 361466613 R60.0 advised to cont lasix 40mg in am, but to add 20mg in early afternoon (starting today), and increase elevation of LE, and to check bmp tomorrow and f/u c renal on Prediabetes 235342820 R7 3.03 Iron defic iency anemia 22563039 D50.9 Fatigue 41938014 R53.83 [id number] Jolie Alvarez Main Office [address] [facility] 207 [facility] [place] [address] 04/04/2020 09:17:22 04/04/2020 10:09:05 Needs influenza immunization 113515292 Z23 Gastroesop hageal reflux disease 181966464 K21.9 start med. if not improved will referto GI Body mass index 40+ - severely obese 650621959 Z68.42 pt with poor eating habits, morbidly obese. talked about hanging this trend, ideas Major depr ession single episode, in partial remission 45850366 F32.4 on celexa lots of life stresses, is unemployed . Obstructiv e sleep apnea syndrome 87664958 G47.33 will get a repeat sleep study, will work with pulmonary on cpap Lymphedema of lower extremity 553779688 I89.0 from salt, obesity and inactivity Chronic va scular insufficiency 14750279 I99.8 seeing vasular Severe obesity 677049504 1 9104 E66.01 [id number] Chandler Brewer MD [facility] [address] [address] [place] [address] 07/13/2020 08:00:03 07/17/2020 09:34:27 Multiple joint pain 81555661 M25.50 Multiple joint pains. Possible PMR given the hips and shoulder involvemen t. Also fibromyalg ia is part of the ddx. [id number] Jerry Jay MD [facility] [address] [address] [place] [address] 08/06/2020 15:02:33 08/08/2020 11:52:00 Cervical radiculopathy 26206868 M54.12 Medication as per order, risk of drowsiness discussed. Advised will try prednisone for 3 days (Fracture risk discussed she is aware and understand s) then switch to mobic with meals.Will do cyclobenza tika for 3 days and gabapentin risk of drowsiness advised especially given current medication she is on, advised to not operated machinery or motor vehicle.Sh e denies red flag symptoms: Fever, unintentio nal weight loss, night sweats, chills, hx of immunodefi ciency or malignancy , drug use, incontinen ce, weakness, loss of sensation she knows if she develops any to seek emergent medical attention given limitation of tele visit where PE is limited.CW warm compressWi ll get XRWill refer to PTIf no improvemen t will consider MRI and neurosurge ry eval. [id number] Jerry Jay MD Tele[facility] [address] [facility] 207 [facility] [place] [address] 09/07/2020 08:55:23 09/07/2020 10:58:31 Candidiasis of mouth 04819114 B37.0 The exam is limited due to video visit, but from what I could see there were some white plaques on her tongue, patient wanted to do p.o. Diflucan however given the fact that I do not think it is as severe I advised the patient that we would try nystatin swish and swallow for 14 days if there is no improvemen t after the seventh day I told her we can consider switching to p.o. Diflucan. [id number] Cesar mcwilliams Main Office [address] [facility] [address] [facility] [place] [address] 09/19/2020 15:26:57 09/19/2020 16:18:20 Adult health examination 829310478 Z00.00 utd on screening. eating much better Obstructiv e sleep apnea syndrome 40742448 G47.33 using CPAP and feels so much better Chronic va scular insufficiency 50766216 I99.8 much less edema with weight loss, low salt Major depr ession single episode, in partial remission 21266489 F32.4 improved mood, is working Body mass index 40+ - severely obese 090510585 E66.01 Z68.41 doing so much better, working with [employer] and quit drinking [id number] Elda Nicole Main Office [address] [facility] [address] [facility] [place] [address] 01/13/2021 15:31:08 01/13/2021 16:36:02 Pain in coccyx 76119337 M53.3 soft pillow or donut for sitting, otc meds prn avoid prolonged sitting with out breaks Altered lin wel function 00625234 R19.4 Likely IBS, had neg eval for celiac, but feels better with less gluten and dairy, colon up to date, CALE neg Irritable bowel syndrome 08159757 K58.9 diet changes help, add probiotic Migraine 94556336 G43.90 9 controlled on topamax and uses prn meds Moderate p ersistent asthma 965923820 J45.40 on controller meds. doing well [id number] Main Office [address] [facility] [address] [place] [address] 01/27/2021 09:05:38 01/27/2021 09:45:07 Kidney stone 62690998 N20.0 will rule out stone, infection. Left sided abdominal pain 386556427 R10.9 pt with persistent pain, waking her at night will check US and labs, rest, call if any worsening sx, rash, hematuria, fever or bowel issues. Use otc analgesia in the interim. [id number] Elda Nicole Main Office [address] [facility] [address] [place] [address] 03/27/2022 15:40:08 03/27/2022 16:49:07 Adult health examination 360801798 Z00.00 Pt is stable, feeling well and trying to have better health habits.. Social and family history reviewed. Immunizati ons reviewed, advised annual flu shot. She is upt to date on dental and eye providers, mammogram up to date, colon up to date (2019), Reviewed diet and exercise. Obstructiv e sleep apnea syndrome 56079184 G47.33 using CPAP and feels so much better Chronic va scular insufficiency 84305677 I99.8 much less edema with weight loss, low salt eating Major depr ession single episode, in partial remission 87379984 F32.4 stable now, doing well overall Body mass index 40+ - severely obese 395341562 E66.01 Z68.41 doing so much better, working with [employer] and quit drinking Gastroesop hageal reflux disease 848351662 K21.9 stable on PPI for now, states she has had EGD in the past, no Barretts. Varicella vaccination 68 082797 Z23 Hepatitis C screening 41 4251421 Z11.59 Screening for malignant neoplasm of cervix 135206716 Z12.4 pap up to date, hx of abnormals, had hpv, better now Screening for malignant neoplasm of breast 690152653 Z12.39 mammogram up to date [id number] Abhilash Rome PA-C [facility] [address] [facility] [address] [place] [address] 05/26/2022 10:19:23 05/26/2022 15:57:46 Acute sinusitis 37519337 J01.90 recommend probiotics while on abx [id number] Elda Heartapegeetha Main Office [address] [facility] [address] [place] [address] 12/11/2022 11:29:44 12/11/2022 12:34:45 Dysfunctional uterine bleeding 05863541 N93.9 to see onsite health coach for this, pt will make appt Anxiety state 477978508 F41.1 Pt needs to have med evaluation , agrees to have therpist call me and try to get med prescriber through [facility] where her therapist is located. Pt tells me she is not having any thoughts of hurting herself or others. Has weekly counseling . Short term followup with Dr Jay Mood swings 79012074 R45 .86 will likely need mood stabilizer , recommend mental health med prescriber , pt agrees, seems stable today, no acute michael or depression at this time. Will call therapist for referral. 513805 Jolie Alvarez Main Office [address] [facility] [address] [place] [address] 03/29/2023 08:54:41 03/29/2023 09:43:23 Anxiety state 606826227 F41.1 stable. Adult heal th examination 006740491 Z00.00 Patient was counseled on healthy diet, exercise and nutrition due to Body mass index is 43.7 kg/m??. Last Colonoscop y:Date: 05/08/2020 Result: WnlPlan: per GI repeat 10yrs Last Mammogram: Date: 10/20/22Res ult: Birad 1Plan: screen 1 yr Last Pap smearDate: 12/08/22Res ult: Neg for SABRINA, TZ present, HPV negPlan: Per USPTF screen 5yrs Bone density scanDate:R esult:Plan : not due Vaccines:T dAP: script givenZoste r rec: script given [id number] : advised to getInfluen za: plans to get at work.Covid : 07/19/20, 08/16/20, 05/02/21, 02/26/23 bivalent, encourage updated vaccine in 3 mo. Routine labs today Immunizati on status reviewed. Will screen based on risk factors. Regular dental and ophtho care advised as well as seat belt and sunscreen use. Distracted driving discussed. Medication reconciled . Obstructiv e sleep apnea syndrome 74330726 G47.33 using CPAP and feels so much better Body mass index 40+ - severely obese 205046846 Z68.41 Major depr ession single episode, in partial remission 16016079 F32.4 stable now, doing well overall Gastroesop hageal reflux disease 395937153 K21.9 stable on PPI for now, states she has had EGD in the past, no Barretts. Varicella vaccination 68 146150 Z23 Screening for malignant neoplasm of breast 411807397 Z12.39 mammogram up to date Needs infl uenza immunization 385450438 Z23 will get flu shot at work. Impaired g lucose tolerance 4918900 R73.02 Administra tion of viral vaccine 44196996 Z23 Fatigue 63938983 R53.83 Severe obesity 942370371 1 9104 E66.01 doing so much better, was working with [employer] and quit drinkingAd vise to consider nume.- Diet and exercise discussed- Patient made aware of risks of obesity- Encouraged to loose weight. Goal set to loose weight at 1-1.5 Lbs/week- Avoid starchy and fatty food- Encouraged use of green vegetables and fruits- Consider Bariatric Surgery evaluation Hyperlipidemia 25924393 E78.5 Thoracic back pain 80024 8004 M54.6 [id number] Jerry Jay MD Main Office [address] [facility] [address] [facility] [place] [address] 08/28/2023 09:45:52 08/28/2023 10:31:40 Acute labyrinthitis 8260490286 14099 H83.09 SARS-CoV-2 032215921 U07 .1 At this point she is passed window for paxlovid tx and sx is what is advised, she has also likely developed viral labyrinthi tis as well and this has exacerbate d her asthma. We discussed risk vs benefit's of starting steroid given that she has passed the 5 day eli we agreed to do a trial of PO steroid for he asthma exacerbati onTylenol OTC, not to exceed package insert for pain or fever q4-6h advised prn. Counselled on not exceeding more than 3g/day.Thr oat Lozenges otc prn for sore throatsalt water gargleadeq uate hydration enforcedsa line sprayshumi difier use enforced.A lso advised can use a teaspoon honey for coughpreca ution advised if any difficulty breathing or tmax 103 > go to nearest ED Acute asthma 373070370 J 45.901 [id number] Jerry Jay MD Main Office [address] [facility] [address] [place] [address] 09/28/2023 15:45:34 09/29/2023 13:14:52 Anxiety state 952333221 F41.1 stable. 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 working with therapistD enies any thoughts of self harm or harming others.We agreed to keep current meds till she gets psych eval.She is aware to call if anything comes up otherwise will follow up in PE. [id number] Abhilash Rome PA-C Main Office [address] [facility] [address] [place] [address] 11/30/2023 11:23:46 11/30/2023 11:56:21 Urge incontinence of urine [id number] N39.41 dipstick negative, will send urine for ua/c&s to verifymean while, rec cranberry juice/cont stay well hydratedse e below Candidiasis of vagina 72 446125 B37.31 pt gets yeast infxn's recurrentl y - used cream recently, will try poconsider f/u c onsite health coach [id number] Jerry Jay MD Main Office [address] [facility] [address] [place] [address] 04/04/2024 14:26:20 04/04/2024 15:22:24 Adult health examination [id number] Z00.00 Patient was counseled on healthy diet, exercise and nutrition due to Body mass index is 45.5 kg/m??. Last Colonoscop y:Date: 05/08/2020 Result: WnlPlan: per GI repeat 10 yrs Last Mammogram: Date: 10/25/23 ult: Birad 1Plan: screen 1 yr Last Pap smearDate: 12/08/22Res ult: Neg for SABRINA, TZ present, HPV negPlan: Per USPTF screen 5 yrs Bone density scanDate:R esult:Plan : not due Vaccines:T dAP: script given againZoste r rec: script given [id number] : advised to getInfluen za: plans to get at work.Covid :encourage updated vaccine Routine labs today Immunizati on status reviewed. Will screen based on risk factors. Regular dental and ophtho care advised as well as seat belt and sunscreen use. Distracted driving discussed. Medication reconciled . Anxiety state [id number] F41.1 Obstructiv e sleep apnea syndrome 06003531 G47.33 using CPAP and feels so much better Major depr ession single episode, in partial remission 19114347 F32.4 stable now, doing well overall Gastroesop hageal reflux disease 341551844 K21.9 stable on PPI for now, states she has had EGD in the past, no Barretts. Fatigue 48682116 R53.83 Hyperlipidemia 27110425 E78.5 Severe obesity 415093345 1 9104 E66.01 -Advise to consider nume.- Diet and exercise discussed- Patient made aware of risks of obesity- Encouraged to loose weight. Goal set to loose weight at 1-1.5 Lbs/week- Avoid starchy and fatty food- Encouraged use of green vegetables and fruits- Consider Bariatric Surgery evaluation Body mass index 40+ - severely obese 200653127 Z68.41 Administra tion of viral vaccine 01269206 Z23 Varicella vaccination 68 311603 Z23 Prediabetes 565370436 R7 3.03 Administra tion of pneumococcal vaccine 93583847 Z23 Needs infl uenza immunization 049537697 Z23 done at work [id number] ESMER VALDERRAMA Main Office [address], [place] [phone] 06/14/2024 15:00:16 06/14/2024 15:33:44 Moderate persistent asthma 135979793 J45.40 hx of asthma-use s albuterol inhaler->p rovides relief only for a few hours-symp toms of wheezing, sob, and dry cough-zoltan es of any congestion , fever/chil ls, FORMAN, sinus pain, chest pain-appre ciated wheezing in the upper lobes bilaterall y-will provide short course of prednisone and discussed to continue with conservati ve measuremen ts Health Concerns Section Related Observation LastModified by Organization Detai ls LastModified Time None Recorded Concern Status LastModified by Organization Details LastModified Time None Recorded Advance Directives Directive Y: Payers Encounter Date Sequence Insurance Name Policy Number Policy Sharma Covered Member ID Sharma Member ID Guarantor Name 08/28/2023 1 [facility] [id number] Adry Lorenzo [id number] Adry Lorenzo 09/28/2023 1 [facility] [id number] Adry Lorenzo [id number] Adry Lorenzo 11/30/2023 1 [facility] [id number] Adry Lorenzo [id number] Adry Lorenzo 04/04/2024 1 [facility] ([facility] [id number] Adry Lorenzo [id number] Adry Lorenzo 06/14/2024 1 [facility]) [id number] Adry Lorenzo [id number] Adry Lorenzo Notes Date Note Type Note Provider Name and Address Organization Details Recorded Time 08/28/2023 text/html COVID-19 Symptom s October 2019Reported bypatient.COVID-19 Signs and Symptomscough same;cough worsening; fever resolved; shortness of breath improving; chills resolved; muscle pain resolved; headache improving; sore throat improving; fatigue improving Contacts and Exposurepotential exposure in specific settings where COVID-19 cases have been reported Quality:productive cough Context:asthma Associated Symptoms:no runny nose; no vomiting; no diarrhea; no body aches; no nausea; no change in mental status; no hypotension; no tachycardia;yellow sputum;wheezing;fatigu e Prior Labs and ImagingCOVID-19 nasopharyngeal swab Suitability of residential settingpatient does have caregiver at home; patient does have gloves and face masks available; patient does not have members of the household at increased risk of complications; patient does have resources to access food and other necessities; patient does have separate bedroom and bathroom for patient; patient is able to adhere to hand hygiene and cough etiquette practicesNotes:Had covid sx: 08/19/23, tested (+) 08/21/24.Did not take paxlovid.What brought her in today if feeling slow and sluggish, had some episode of room was spinning, lasted for second not triggered by moving head too fast, she describes it as triggered and episodic. Las dizziness spell was yesterday.Did not get most updated covid vaccine.Had flu vaccine. Jerry Jay MD [address] [address], [place], [phone], [facility] 08/28/2023 10:27:26 09/28/2023 text/html The patient is h ere for a mental health follow-up. She is currently seeing a therapist, Nahum, with whom she has had two sessions and has established a good rapport. The patient is also on Citalopram 20 mg. The provisional diagnosis under consideration is bipolar disorder type II. She reports experiencing periods of elevated mood during which she has more energy and is able to accomplish tasks more quickly, which she refers to as her manic phases. Conversely, during her depressive states, she becomes less sociable, avoiding outings and interactions with friends, turns more introverted, and her personal hygiene suffers. Jerry Jay MD [address] [address], [place], [address], [facility] 09/28/2023 17:26:03 11/30/2023 text/html Pt c/o urinary u rgency since Wednesday11/27/2023 pushing water intake urine dipstick negative here in office today also c/o occ dysuria, but no hematuria, f/c, lbp has had a few mild yeast infections recently - rx'd c otc topical creams Abhilash Rome PA-C [address] [address], [place], [address], [facility] 11/30/2023 14:04:12 04/04/2024 text/html Here for CAROLYN santana Reviewed chronic medications and medical problems. Discussed screening guidelines as well as goals for fitness and weight management. Mental health:Seeing therapist 1x every 2 weeks doing well, seeing Dr. Dozier for medication management. These regimen seem to help a lot. Jerry Jay MD [address] [address], [place], [address], [facility] 04/04/2024 15:17:44 06/14/2024 text/html Adry is a 53yr old F who presents for SOB and dry cough x5 days. Hx of asthma. Symptoms of a dry cough and SOB. Denies of any fever, chills, n/v, or headache. Denies of any URI symptoms such as congestion, chills/fever, n/v, OFRMAN, sinus pain. Has been having difficulty taking deep inhalations and having SOB. Uses her albuterol inhaler which provides some relief but only lasts a few hours. ESMER VALDERRAMA [address] [address], [place], [address], [facility] 06/15/2024 22:36:09 OBGyn Episode No OBEpisode recorded.
== END 2024-09-21 16:04 | disposition home or self-care (01) ==
LOC: HO.HPS 15:38
PROVIDERS: PCP Family Medicine; Visit Provider Internal Medicine Pulmonary Disease
DX: J45.50 Severe persistent asthma, uncomplicated (principal); G47.33 Obstructive sleep apnea (adult) (pediatric); Z91.09 Other allergy status, other than to drugs and biological substances
CPT/HCPCS: 99214

== ENCOUNTER → 2024-09-21 15:37 | Outpatient (BNVA) | payer OTHER, SELFPAY | PROVIDERS: PCP Family Medicine; Visit Provider Internal Medicine Pulmonary Disease ==

== ENCOUNTER 2025-05-17 15:10 | Outpatient (AMB) | payer OTHER, SELFPAY ==
[2025-05-17 15:12] VITALS: BP 102/62; PULSE 89; O2SAT 96; BMI 44.2
--- NOTE | 2025-05-17 15:12 | MHC.OFFVIS ---
Vital Signs 05/17/25 15:12 Height 5 ft 1 in Weight 234 lb BMI 44.2 BP 102/62 Blood Pressure Location Rt brachial Position Sitting Pulse 89 Pulse Oximetry (%) 96 Oxygen Delivery Method Room Air Intake Visit Reasons: Asthma Allergies amoxicillin (Augmentin) Allergy (Unknown, Verified 05/17/25 15:20) Unknown clavulanic acid (Augmentin) Allergy (Unknown, Verified 05/17/25 15:20) Unknown HPI HPI Asthma: Details: 54-year-old lady, former 20 pack-year smoker, quit 2010 with underlying obesity, followed for obstructive sleep apnea on CPAP, environmental allergies, and severe persistent asthma.? Her symptoms reasonably controlled Wixela, Singulair, and albuterol MDI.?She can no longer afford Fasenra. She does complain of upper respiratory symptoms ongoing for last 2 weeks now symptomatic with productive cough. Patient did have recent flare-up of her environmental allergies for which she continues on Zyrtec, pseudoephedrine, and Alix. [facility] Social History Years Smoked: 15 yrs Review of Systems Const Denies daytime sleepiness, Denies excessive sweating, Denies fatigue, Denies fever(s), Denies lethargy, Denies malaise, Denies night sweats, Denies snoring and Denies weight loss Eyes Denies blurry vision and Denies itchy eyes ENT Denies nasal congestion, Denies post nasal drip, Denies sinus pain, Denies sinus pressure and Denies other ( Thrush) Card Denies chest pain, Denies pedal edema, Denies dyspnea, Denies orthopnea and Denies paroxysmal nocturnal dyspnea Resp Reports cough, Denies hemoptysis, Reports excessive phlegm production, Denies dyspnea, Denies snoring and Denies wheezing GI Denies abdominal pain and Denies heartburn Musc Denies myalgias, Denies arthralgias and Denies joint swelling Skin/Breast Denies rash Neuro Denies memory loss and Denies seizure-like activity Psych Denies abnormal sleep pattern, Denies anxiety and Denies memory loss Endo Denies excessive sweating, Denies fatigue and Denies heat intolerance Delvin/Lymph Denies easy bruising Aller/Immun Denies itchy eyes, Denies seasonal rhinorrhea and Denies wheezing Physical Exam Vital Signs: Last Vital Signs Pulse 89 05/17/25 15:12 BP 102/62 05/17/25 15:12 Pulse Ox 96 05/17/25 15:12 Oxygen Delivery Method Room Air 05/17/25 15:12 BMI result Body Mass Index 44.2 Const General: no acute distress and alert Nutritional Appearance: not obese Orientation/consciousness: Other orientation findings ( oriented) HEENT Head: Yes atraumatic Eyes General: appearance normal, both eyes and all related structures Sclerae: sclerae normal EOM: EOMs intact bilaterally Neck Neck: Yes supple Lymphatic: no lymphadenopathy noted Resp Effort & Inspection: normal respiratory effort and no use of accessory muscles Auscultation: clear to auscultation bilaterally Cardio Rate: regular rate Rhythm: regular rhythm Heart sounds: no gallops, no murmurs and no rubs Skin General skin exam: other ( warm) Extrem General: No clubbing, No cyanosis and No edema Assessment & Plan Assessment & Plan (1) Severe persistent allergic asthma: Code(s): J45.50 - Severe persistent asthma, uncomplicated Category: Medical Plan: Well controlled on current regimen of Wixela, Singulair, and albuterol MDI. Continue current regimen. Now with bronchitic exacerbation, will treat with a course of doxycycline. (2) Environmental allergies: Code(s): Z91.09 - Other allergy status, other than to drugs and biological substances Category: Medical Plan: Controlled on current regimen of Singulair and Alix. Continue current regimen. (3) Severe obstructive sleep apnea: Code(s): G47.33 - Obstructive sleep apnea (adult) (pediatric) Category: Medical Plan: Controlled on CPAP therapy. Continue CPAP therapy. Medications: New doxycycline monohydrate 100 mg PO BID 10 caps 0RF Coding Level of Care Code Complex visit Add On G2211 Diagnoses Severe persistent allergic asthma J45.50 Environmental allergies Z91.09 Severe obstructive sleep apnea G47.33
--- OUTSIDE RECORDS SUMMARY | 2025-05-17 20:29 | XMS_ITS | Encounter Summary ---
Author Organization [facility] Address [address] [place] [address] Phone Care Team Providers Care Air Sampler Name Role Phone Shelly Vega MD Primary Care Prov ider Encounter Details Date Type Department Care Team (Late st Contact Info) Description 01/31/2021 Procedure Pass [facility], Ct Scan - [address] [address] Social History Tobacco Use Types Packs/Day Years Used Date Smoking Tobacco: Never Assessed Comments Unknown Sex and Gender Information Value Date Recorded Sex Assigned at Not on file Legal Sex Female 7:33 PM EST Gender Identity Not on file Sexual Orientation Not on file documented as of this encounter Plan of Treatment Not on file documented as of this encounter Visit Diagnoses Not on filedocumented in this encounter Care Teams Air Sampler Relationship Specialty Start Date End Date Shelly Vega MD [address] [address] PCP - General Internal Medicine 05/21/20 documented as of this encounter Additional Source Comments The information contained in this document represents components of the legal health record. It is not the complete legal health record.[facility]
--- OUTSIDE RECORDS SUMMARY | 2025-05-17 20:29 | XMS_ITS | Encounter Summary ---
Author Organization [facility] Address [address] [place] [address] Phone Care Team Providers Care Rotary Envelope Machine Operator Name Role Phone Shelly Vega MD Primary Care Prov ider Reason for Referral * Outpatient Procedure - Closed Specialty Diagnoses / Procedures Referred By Aaron gilliland Referred To Contact Radiology Diagnoses Left sided abdominal pain Procedures US Abdomen Complete US Abdomen Complete Elda Henry NP Phone: tel: fax: Referral ID Status Reason Start Date Expiration Date Visits Re quested Visits Authorized [id number] Closed 01/27/2021 01/27/2022 1 1 Encounter Details Date Type Department Care Team (Late st Contact Info) Description 01/27/2021 Ancillary Orders Virtual Department [address] [place] [address] Elda Henry NP [address] [facility] [address] [place] [address] Left sided abdominal pain Social History Tobacco Use Types Packs/Day Years Used Date Smoking Tobacco: Never Assessed Comments Unknown Sex and Gender Information Value Date Recorded Sex Assigned at Not on file Legal Sex Female 7:33 PM EST Gender Identity Not on file Sexual Orientation Not on file documented as of this encounter Plan of Treatment Not on file documented as of this encounter Results * US Abdomen Complete (01/28/2021 7:58 AM EDT) Anatomical Region Laterality Modality Abdomen Ultrasound 01/28/2021 8:09 AM EDT Impressions 01/28/2021 8:12 AM EDT Portions of the pancreas obscured. Increased hepatic echogenicity, typically associated with hepatic steatosis. Otherwise normal post cholecystectomy appearance of the abdomen. Narrative 01/28/2021 8:12 AM EDT COMPARISON: None TECHNIQUE: Ultrasonic examination of the abdomen was performed and multiple static images and cine sweeps obtained. FINDINGS: Pancreas: Tail obscured. No findings of concern in the visualized portions. Upper Aorta and IVC: No finding of concern detected in the visualized portions. Gallbladder and Biliary tree: Status post cholecystectomy. No biliary dilatation. Common bile duct measured at 4 mm. Liver: Hepatic echogenicity increased, typically associated with hepatic steatosis. No focal lesions of concern detected. Spleen: Homogeneous and unenlarged. It is measured at 9.7 cm in length. Kidneys: No stone or solid mass is detected. There is no hydronephrosis. Right kidney measured approximately 12 and have cm and left 13 cm. Other: No ascites. Main portal vein is patent and hepatopetal. Procedure Note Vickey Tompkins MD - 01/28/2021 COMPARISON: None TECHNIQUE: Ultrasonic examination of the abdomen was performed andmultiple static images and cine sweeps obtained. FINDINGS: Pancreas: Tail obscured. No findings of concern in the visualizedportions. Upper Aorta and IVC: No finding of concern detected in the visualizedportions. Gallbladder and Biliary tree: Status post cholecystectomy. No biliarydilatation. Common bile duct measured at 4 mm. Liver: Hepatic echogenicity increased, typically associated with hepaticsteatosis. No focal lesions of concern detected. Spleen: Homogeneous and unenlarged. It is measured at 9.7 cm in length. Kidneys: No stone or solid mass is detected. There is no hydronephrosis.Right kidney measured approximately 12 and have cm and left 13 cm. Other: No ascites. Main portal vein is patent and hepatopetal. IMPRESSION: Portions of the pancreas obscured. Increased hepatic echogenicity,typically associated with hepatic steatosis. Otherwise normal postcholecystectomy appearance of the abdomen. us Elda Henry PLANT PHYSIOLOGY TEACHER IMG US ABDOMEN Final Re sult documented in this encounter Visit Diagnoses Diagnosis Left sided abdominal pain Abdominal pain, unspecified site Left sided abdominal pain Abdominal pain, unspecified site documented in this encounter Care Teams Rotary Envelope Machine Operator Relationship Specialty Start Date End Date Shelly Vega MD [address] [place] [phone] PCP - General Internal Medicine 05/21/20 documented as of this encounter Additional Source Comments The information contained in this document represents components of the legal health record. It is not the complete legal health record.[facility]
--- OUTSIDE RECORDS SUMMARY | 2025-05-17 20:29 | XMS_ITS | Clinical Summary ---
Author Organization [facility] Address [address] [place] [address] Phone Care Team Providers Care Money Manager Name Role Phone Shelly Vega MD Primary Care Prov ider Immunizations Immunization Administration Dates Next Due COVID-19 (Pre-04/19) Moderna Vaccine, mRNA, PF 0 08/16/2020,07/19/2020 Influenza Quadrivalent Preservative Free IM 02/28 Influenza, Unspecified Formulation 04/04/2020, Tdap 11/14/2012,11/14/2012 Social History Tobacco Use Types Packs/Day Years Used Date Smoking Tobacco: Never Assessed Education Answer Date Recorded Are you interested in more education? Not on tariq e 10/22/2022 Are you concerned about learning? Not on file 10/22/2022 No 10/22/2022 No 10/22/2022 Digital Access Answer Date Recorded No 11/23/2022 No 11/23/2022 No 11/23/2022 Reliable internet access at home? Not on file 11/23/2022 Device with a working camera? Not on file Comments Unknown Sex and Gender Information Value Date Recorded Sex Assigned at Not on file Legal Sex Female 7:33 PM EST Gender Identity Not on file Sexual Orientation Not on file Plan of Treatment Health Maintenance Due Date Last Done Comments LIPID PANEL 1970 DEPRESSION SCREENING 1982 SMOKING Hx and SMOKELESS TOBACCO SCREENING 1983 HEPATITIS C SCREENING 1988 HIV ONE-TIME SCREENING (18-65 YEARS) 1988 PAP SMEAR 1991 MAMMOGRAM 2010 COLOGUARD 2015 COLONOSCOPY 2015 COLORECTAL CANCER SCREENING 2015 FIT TEST 2015 FOBT 2015 SIGMOIDOSCOPY 2015 VIRTUAL COLONOSCOPY 2015 PNEUMOCOCCAL VACCINES (50+ years) (1 of 1 - PCV) 2020 ZOSTER VACCINES (1 of 2) 2020 Adult Td,Tdap Booster 11/14/2022 11/14/2012 , 11/14/2012, 01/21/1999 INFLUENZA VACCINE (#1) 2025 2, 03/27/2021, 04/04/2020, Additional history exists COVID-19 VACCINE (2024- season) 2025 02/26/2023, 05/02/2021, 08/16/2020, Additional history exists RSV VACCINE (1 - 1-dose 75+ series) 2045 HEPATITIS A VACCINES Aged Out No long er eligible based on patient's age to complete this topic HIB VACCINES Aged Out No longer eligi ble based on patient's age to complete this topic IPV VACCINES Aged Out No longer eligi ble based on patient's age to complete this topic MENINGOCOCCAL VACCINES (ACWY) Aged Out No longer eligible based on patient's age to complete this topic MENINGOCOCCAL VACCINES (B) Aged Out N o longer eligible based on patient's age to complete this topic Medical Devices Not on file [place] [address] [address] [place] [address] [employer]AF[employer] NET PARTIAL Member Subscriber Plan / Payer (Ef fective 2020-Present) Name:Adry Hodge Relation to Subscriber:Self Name:Adry Hodge Payer ID:Not on file Group ID:Not on file Type:Medicaid Address: [address] [employer] NET PARTIAL Member Subscriber Plan / Payer (Ef fective 2020-Present) Name:Adry Hodge Relation to Subscriber:Self Name:Adry Hodge Payer ID:Not on file Group ID:Not on file Type:Medicaid Address: [address] [employer] SAF[employer] NET PARTIAL [facility] [employer] SAFETY NET PARTIAL Member Subscriber Plan / Payer (Ef fective 2020-Present) Name:Adry Hodge Relation to Subscriber:Self Name:Adry Hodge Payer ID:Not on file Group ID:Not on file Type:Medicaid Address: [address] [employer] NET PART[employer] Member Subscriber Plan / Payer (Ef fective 2020-Present) Name:Adry Hodge Relation to Subscriber:Self Name:Adry Hodge Payer ID:Not on file Group ID:Not on file Type:Medicaid Address: [address] [employer] NET PART[employer] Member Subscriber Plan / Payer (Ef fective 2020-Present) Name:Adry Hodge Relation to Subscriber:Self Name:Adry Hodge Payer ID:Not on file Group ID:Not on file Type:Medicaid Address: [address] [employer] NET PARTIAL Member Subscriber Plan / Payer (Ef fective 2020-Present) Name:Adry Hodge Relation to Subscriber:Self Name:Adry Hodge Payer ID:Not on file Group ID:Not on file Type:Medicaid Address: [address] [employer] FAMILY Care Teams Money Manager Relationship Specialty Start Date End Date Shelly Vega MD [facility] [address] [phone] PCP - General Internal Medicine 05/21/20 Additional Source Comments The information contained in this document represents components of the legal health record. It is not the complete legal health record.[facility]
--- OUTSIDE RECORDS SUMMARY | 2025-05-17 20:29 | XMS_ITS | Encounter Summary ---
Author Organization [facility] Address [address] [facility] [address] [place] [address] Phone Care Team Providers Care Bit Sharpener Operator Name Role Phone Shelly Vega MD Primary Care Prov ider Encounter Details Date Type Department Care Team (Latest Contact Info) Description 01/27/2021 Transcribe Orders Virtual Department [address] [place] [address] Elda Henry NP [address] [address] Stomach ache (Primary Dx) Social History Tobacco Use Types Packs/Day Years Used Date Smoking Tobacco: Never Assessed Comments Unknown Sex and Gender Information Value Date Recorded Sex Assigned at Not on file Legal Sex Female 7:33 PM EST Gender Identity Not on file Sexual Orientation Not on file documented as of this encounter Plan of Treatment Not on file documented as of this encounter Visit Diagnoses Diagnosis Stomach ache- Primary Dyspepsia and other specified disorders of function of stomach documented in this encounter Care Teams Bit Sharpener Operator Relationship Specialty Start Date End Date Shelly Vega MD [address] [address] PCP - General Internal Medicine 05/21/20 documented as of this encounter Additional Source Comments The information contained in this document represents components of the legal health record. It is not the complete legal health record.[facility]
--- OUTSIDE RECORDS SUMMARY | 2025-05-17 20:29 | XMS_ITS | Continuity of Care Document ---
Author Organization [facility] ([place], [place]), Main Office Address [address] [facility] [place] [address] Care Team Providers Care Operations Dispatcher Name Role Phone DINORA MUNOZ Third Officer SHAYY REMY Tower Erector Helper [phone] JOIE HODGE Orthopedic Surgeon [facility] Vascular Surgeon YAMINI BARNEY Prototype Machine Operator MIGUEL BUSCH Principal Investigator [phone] DARYL ROBLES Information Clerk [employer] JOEY JAY Primary Care Provider [phone] PRIYANKA DOZIER Neuropsychiatrist [phone] ENRIQUETA CRUZ Books Salesperson RENNY LEDEZMA Casino Floor Supervisor FIDELIA TILLMAN Italian Teacher Assessment No assessment recorded. Plan of Treatment Reminders Order Date Submit Date Provider Last Modified By Organization Details Last Modified Time Details Appointments None recorded. Lab vitamin D, 25-hydrox y, total, serum 025 025 NANCY [facility], [address], [place], [address], 5 13:34:58 HbA1c (hemoglob in A1c), blood 025 025 NANCY [facility], [address], [address], [address], 13:34:57 magnesium , serum or plasma NANCY [facility] (Centralized Electronic Ordering - All Locations), Patient Can Go To The Location Of Their Choice, 13:34:57 lipid panel, serum NANCY [facility] (Centralized Electronic Ordering - All Locations), Patient Can Go To The Location Of Their Choice, 13:34:57 TSH, ultra-sen sitive, serum NANCY [facility] (Centralized Electronic Ordering - All Locations), Patient Can Go To The Location Of Their Choice, 13:34:58 CBC w/ auto diff NANCY [facility] (Centralized Electronic Ordering - All Locations), Patient Can Go To The Location Of Their Choice, 13:34:58 CMP, serum or plasma NANCY [facility] (Centralized Electronic Ordering - All Locations), Patient Can Go To The Location Of Their Choice, 13:34:58 Referral None recorded. Procedures None recorded. Surgeries None recorded. Imaging None recorded. Medication Orders None recorded. Patient TargetsNo targets recorded. Patient Instructions Encounter Date Encounter Id Patient Instructions Last Modified By Organization Details Last Modified Time 04/10/2025 [id number] Starting a Weight-Loss Plan: Care Instructions [email or web address] Not available 04/10/2025 13:34:40 sleep apnea: car e instructions [email or web address] Not available 04/10/2025 13:34:40 Discussed with patient the signs/symptoms warranted for a return to office visit and/or an ER visit. Patient understood and agreed with the plan. [email or web address] Not available 04/10/2025 13:40:28 Reason for Referral None Reported. Results Created Date Observation Date Name Description Value Unit Range Abnormal Flag Note LastModifiedBy Organization Detail LastModifiedTime 04/18/20 25 elect darya alexandregr am No observ ation record ed. [email or web address] In-Office Order Internal Use Only DO Not Attach Compendium DO Not Attach Compendium, Do Not Delete/merge, [id number] 04/18/2025 18:02:36 04/19/20 25 04/19/2025 shakir vargas am No observ ation record ed. johnnie In-Office Order Internal Use Only DO Not Attach Compendium DO Not Attach Compendium, Do Not Delete/merge, [id number] 04/19/2025 09:25:42 Result Notes None recorded. Problems Name Problem SNOMED Code Status Onset Date Resolution Date Notes Provider Name and Address Organization Details Recorded Time Acne [id number] Completed 05/27/[address] [facility] ([place], [place]) 7 13:38:54 Acute pharyngi tis 192019785 Completed 05/27/[address] [facility] ([place], [place]) 7 11:46:49 Allergic rhinitis 68572761 Active Not Available [facility] 3 11:37:50 Anxiety state 031768378 Active Not Available [facility] 3 11:37:50 Malaise and fatigue 890294668 Completed 05/27/[address] [facility] ([place], [place]) 7 13:38:33 Gastroes ophageal reflux disease 949817274 Active Not Available [facility] 3 11:37:50 Irritabl e bowel syndrome 43969577 Active Not Available [facility] 3 11:37:50 Palpitat ions 89113685 Completed 05/27/[address] [facility] ([place], [place]) 7 13:38:45 Tobacco user 737761881 Completed 07/08/2015 Demetrice Rome PA-C [address] [facility] [address], [place], [address] , [facility] 6 10:10:41 History of clinical finding in subject 143200515 Completed 07/09/2015 Demetrice Rome PA-C [address] [facility] [address], [place], [address] , [facility] 6 10:10:41 Chronic sinusiti s 96389735 Completed 05/27/[address] [facility] ([place], [place]) 7 13:38:40 Tobacco dependen ce syndrome 45697495 Completed 05/27/2017 Quit [address] [facility] ([place], [place]) 7 11:47:30 Acute upper respirat ory infectio n 36409526 Completed 05/27/[address] [facility] ([place], [place]) 7 11:46:53 Left flank pain 135642035 Completed 05/27/[address] [facility] ([place], [place]) 7 11:46:36 Pyelonep hritis 96550360 Completed 05/27/[address] [facility] ([place], [place]) 7 11:47:21 Migraine 53332638 Active Not Available [facility] 3 11:37:50 Sleep apnea 29029335 Completed 07/09/2015 Demetrice Rome PA-C [address], [place], [address] , [facility] 6 10:10:41 Body mass index 30+ - obesity 632645379 Completed 07/06/2018 Removal Reason: BMI increase d Joliefrnacois nunez [facility] ([place], [place]) 9 10:16:54 Acute sinusiti s 97565245 Completed 05/27/[address] [facility] ([place], [place]) 7 11:46:29 Obstruct favian sleep apnea syndrome 01802076 Active on CPAP Joey Jay MD [address], [place], [address] , [facility] 5 20:00:47 Impaired fasting glycemia 493949126 Completed 05/27/[address] [facility] ([place], [place]) 7 11:47:01 Uncontro lled type 2 diabetes mellitus 225609977 Completed 05/27/2017 A1C was 6.1; diet-con trolled RITA Montiel, [facility] ([place], [place]) 7 11:47:16 Diabetes mellitus 63184199 Completed 05/27/2017 RITA Montiel, [facility] ([place], [place]) 7 13:01:55 Impaired glucose toleranc e 9537676 Completed 04/03/2024 Joey Jay MD [address], [place], [address] , [facility] 4 17:33:08 Morbid obesity 766524700 Completed 05/27/[address] [facility] ([place], [place]) 7 11:47:45 Depressi ve disorder 29184487 Completed 05/27/[address] [facility] ([place], [place]) 9 16:38:20 Suspecte d COVID-19 086798139 Completed 01/29/2021 Removal Reason: Problem added by user [email or web address] from the COVID-19 watch flag Winnie Ulloa mayra [facility] ([place], [place]) 1 10:02:17 Dysfunct ional uterine bleeding Completed 200203/29/2023 Joey Jay MD [address] [facility] [address], [place], [address] , [facility] 3 09:15:48 Carpal tunnel syndrome 85667004 Completed 200305/27/2017 Had surgery RITA Montiel, [facility] ([place], [place]) 7 11:47:24 Acute frontal sinusiti s 28555569 Completed 200801/09/2014 RECORDED 02/07/20 09 8:16AM BY RITA STANTON, ANNOTATI ON/MARELY Rome PA-C [address], [place], [address] , [facility] 6 10:10:41 Allergic rhinitis 75148009 Completed 200801/09/2014 IMPRESSI ON: WILL TAKE OTC ZYRTEC AND NASAL SPRAY, STOP BENADRYL ; RECORDED 02/07/20 09 8:16AM BY RITA STANTON, CHAGO ON/ADDEN DUM Demetrice Rome PA-C [address], [place], [address] , [facility] 6 10:10:41 Ulcerati ve rhinitis 19631239 Completed 200801/09/2014 RECORDED 02/07/20 09 8:16AM BY RITA STANTON, CHAGO ON/ADDEN DUM Demetrice Rome PA-C [address], [place], [address] , [facility] 6 10:10:41 Candidal vulvovag initis 50144793 Completed 200801/09/2014 IMPRESSI ON: TX FOR YEAST VAGINITI S; RECORDED 02/07/20 09 8:16AM BY RITA STANTON, CHAGO ON/ADDEN DUM Demetrice Rome PA-C [address], [place], [address] , [facility] 6 10:10:41 Acute frontal sinusiti s 89323449 Completed 200802/05/2014 RECORDED 02/07/20 09 8:16AM BY CHAGO MERCADO ON/ADDEN DUM Demetrice Rome PA-C [address], [place], [address] , [facility] 6 10:10:41 Ulcerati ve rhinitis 80054633 Completed 200802/05/2014 RECORDED 02/07/20 09 8:16AM BY CHAGO MERCADO ON/ADDEN DUM Demetrice Rome PA-C [address], [place], [address] , [facility] 6 10:10:41 Candidal vulvovag initis 67284268 Completed 200802/05/2014 IMPRESSI ON: TX FOR YEAST VAGINITI S; RECORDED 02/07/20 09 8:16AM BY RITA STANTON, ANNOTATI ON/ADDEN DUM Demetrice LYMAN-Kim [address] [facility] [address], [place], [address] , [facility] 6 10:10:41 Screenin g for malignan t neoplasm of breast Completed 200901/09/2014 RECORDED 06/11/20 10 2:13PM BY MARTÍN COVARRUBIAS, OFFICE VISIT Demetrice LYMAN-Kim [address] [facility] [address], [place], [address] , [facility] 6 10:10:42 Screenin g for malignan t neoplasm of breast Completed 200902/05/2014 RECORDED 06/11/20 10 2:13PM BY MARTÍN COVARRUBIAS, OFFICE VISIT Demetrice Rome PA-C [address] [facility] [address], [place], [address] , [facility] 6 10:10:42 Influenz a vaccine needed 36203710363 06 Completed 200901/09/2014 RECORDED 06/24/20 10 12:51PM BY MARTÍN COVARRUBIAS, HISTORIC AL SUMMARY Demetrice Rome PA-C [address] [facility] [address], [place], [address] , [facility] 6 10:10:41 Influenz a vaccine needed 38407913985 06 Completed 200902/05/2014 RECORDED 06/24/20 10 12:51PM BY MARTÍN COVARRUBIAS, HISTORIC AL SUMMARY Demetrice Rome PA-C [address] [facility] [address], [place], [address] , [facility] 6 10:10:41 Amenorrh ea 63596159 Completed 201101/09/2014 RECORDED 03/02/20 12 1:19PM BY CHAGO MONTIEL ON/ADDEN DUM Demetrice Rome PA-C [address], [place], [address] , [facility] 6 10:10:41 Urinary tract infectio us disease 52314406 Completed 201101/09/2014 RECORDED 03/02/20 12 1:19PM BY CHAGO MONTIEL ON/ADDEN DUM Demetrice Rome PA-C [address], [place], [address] , [facility] 6 10:10:41 Vaginiti s and vulvovag initis Completed 201101/09/2014 IMPRESSI ON: + GARDNERE LLA, SYMPTOMA TIC; RECORDED 03/02/20 12 1:20PM BY CHAGO MONTIEL ON/ADDEN DUM Demetrice Rome PA-C [address] [facility] [address], [place], [address] , [facility] 6 10:10:41 Exposure to organism Completed 201101/09/2014 RECORDED 03/02/20 12 1:19PM BY CHAGO MONTIEL ON/ADDEN DUM Demetrice Rome PA-C [address] [facility] [address], [place], [address] , [facility] 6 10:10:41 Cough 79917630 Completed 201101/09/2014 IMPRESSI ON: APPEARS VIRAL; RECORDED 03/02/20 12 1:20PM BY CHAGO MONTIEL ON/ADDEN DUM Demetrice Rome PA-C [address] [facility] [address], [place], [address] , [facility] 6 10:10:41 Dysphagi a 96986599 Completed 201101/09/2014 RECORDED 03/02/20 12 1:20PM BY CHAGO MONTIEL ON/ADDEN DUM Demetrice Rome PA-C [address] [facility] [address], [place], [address] , [facility] 6 10:10:41 Abdomina l pain 41948366 Completed 201101/09/2014 IMPRESSI ON: X 1 DAY. NO URINARY SXS, F/C OR GI SXS, BLOOD MOST LIKELY SECONDAR Y TO MENSES. REST, WARM COMPRESS ES, PAIN MED PRN. TO MONITOR URINE AT HOME (PROVIDE D WITH STRAINER ) AND WE WILL ARRANGE FOR US TOMORROW . CONTACT US SOONER PRN.; RECORDED 03/02/20 12 1:19PM BY CHAGO MONTIEL ON/ADDEN DUM Demetrice Wild LYMAN-C [address] [facility] [address], [place], [address] , [facility] 6 10:10:41 Well child 878873549 Completed 201101/09/2014 RECORDED 03/02/20 12 1:20PM BY CHAGO MONTIEL ON/ADDEN DUM Demetrice Wild LYMAN-C [address] [facility] [address], [place], [address] , [facility] 6 10:10:42 Headache 11569829 Completed 201101/09/2014 RECORDED 03/02/20 12 1:20PM BY CHAGO MONTIEL ON/ADDEN DUM Demetrice Rome PA-C [address] [facility] [address], [place], [address] , [facility] 6 10:10:41 Breast lump 54679974 Completed 201101/09/2014 RECORDED 03/02/20 12 1:20PM BY CHAGO MONTIEL ON/ADDEN DUM Demetrice Rome PA-C [address] [facility] [address], [place], [address] , [facility] 6 10:10:41 Eruption 247400537 Completed 201101/09/2014 IMPRESSI ON: SUSPECT SECONDAR Y TO STREP THROAT INFECTIO N. DOES NOT APPEAR TO BE SCARLET FEVER THOUGH; RECORDED 03/02/20 12 1:19PM BY CHAGO MONTIEL ON/ADDEN DUM Demetrice Rome PA-C [address] [facility] [address], [place], [address] , [facility] 6 10:10:41 Screenin g for malignan t neoplasm of colon Completed 201101/09/2014 RECORDED 03/02/20 12 1:19PM BY CHAGO MONTIEL ON/ADDEN DUM Demetrice Rome PA-C [address] [facility] [address], [place], [address] , [facility] 6 10:10:42 Streptoc occal sore throat 98389015 Completed 201101/09/2014 IMPRESSI ON: + RAPID STREP, 3RD EPISODE OF STREP IN 3 MONTHS; RECORDED 03/02/20 12 1:19PM BY CHAGO MONTIEL ON/ADDEN DUM Demetrice Rome PA-C [address] [facility] [address], [place], [address] , [facility] 6 10:10:41 Infectio n by Surjit geller [id number] Completed 201101/09/2014 RECORDED 03/02/20 12 1:20PM BY CHAGO MONTIEL ON/ADDEN DUM Demetrice Rome PA-C [address] [facility] [address], [place], [address] , [facility] 6 10:10:41 Pruritus of genital organs 269997918 Completed 201101/09/2014 RECORDED 03/02/20 12 1:20PM BY CHAGO MONTIEL ON/ADDEN DUM Demetrice Rome PA-C [address] [facility] [address], [place], [address] , [facility] 6 10:10:41 Viral disease 58244499 Completed 201101/09/2014 RECORDED 03/02/20 12 1:19PM BY CHAGO MONTIEL ON/ADDEN DUM Demetrice Rome PA-C [address], [place], [address] , [facility] 6 10:10:41 Amenorrh ea 05924257 Completed 201102/05/2014 RECORDED 03/02/20 12 1:19PM BY CHAGO MONTIEL ON/ADDEN DUM Demetrice Rome PA-C [address], [place], [address] , [facility] 6 10:10:41 Urinary tract infectio us disease 96376029 Completed 201102/05/2014 RECORDED 03/02/20 12 1:19PM BY CHAGO MONTIEL ON/ADDEN DUM Demetrice Rome PA-C [address] [facility] [address], [place], [address] , [facility] 6 10:10:41 Vaginiti s and vulvovag initis Completed 201102/05/2014 IMPRESSI ON: + GARDNERE LLA, SYMPTOMA TIC; RECORDED 03/02/20 12 1:20PM BY CHAGO MONTIEL ON/ADDEN DUM Demetrice Rome PA-C [address] [facility] [address], [place], [address] , [facility] 6 10:10:41 Exposure to organism Completed 201102/05/2014 RECORDED 03/02/20 12 1:19PM BY CHAGO MONTIEL ON/ADDEN DUM Demetrice Rome PA-C [address], [place], [address] , [facility] 6 10:10:41 Cough 64034660 Completed 201102/05/2014 IMPRESSI ON: APPEARS VIRAL; RECORDED 03/02/20 12 1:20PM BY CHAGO MONTIEL ON/ADDEN DUM Demetrice Rome PA-C [address] [facility] [address], [place], [address] , [facility] 6 10:10:41 Dysphagi a 91163572 Completed 201102/05/2014 RECORDED 03/02/20 12 1:20PM BY CHAGO MONTIEL ON/ADDEN DUM Demetrice Wild PA-C [address], [place], [address] , [facility] 6 10:10:41 Abdomina l pain 52345682 Completed 201102/05/2014 IMPRESSI ON: X 1 DAY. [...] [address], [place], [address] , [facility] 6 10:10:41 Well child 897141128 Completed 201102/05/2014 RECORDED 03/02/20 12 1:20PM BY CHAGO MONTIEL ON/ADDEN DUM Demetrice Wild PA-C [address] [facility] [address], [place], [address] , [facility] 6 10:10:42 Headache 07557420 Completed 201102/05/2014 RECORDED 03/02/20 12 1:20PM BY CHAGO MONTIEL ON/ADDEN DUM Demetrice Rome PA-C [address], [place], [address] , [facility] 6 10:10:41 Breast lump 14189414 Completed 201102/05/2014 RECORDED 03/02/20 12 1:20PM BY CHAGO MONTIEL ON/ADDEN DUM Demetrice Rome PA-C [address], [place], [address] , [facility] 6 10:10:41 Eruption 648274556 Completed 201102/05/2014 IMPRESSI ON: SUSPECT SECONDAR Y TO STREP THROAT INFECTIO N. DOES NOT APPEAR TO BE SCARLET FEVER THOUGH; RECORDED 03/02/20 12 1:19PM BY CHAGO MONTIEL ON/ADDEN DUM Demetrice Wild LYMAN-C [address], [place], [address] , [facility] 6 10:10:41 Screenin g for malignan t neoplasm of colon Completed 201102/05/2014 RECORDED 03/02/20 12 1:19PM BY CHAGO MONTIEL ON/ADDEN DUM Demetriceangelica LYMAN-C [address] [facility] [address], [place], [address] , [facility] 6 10:10:42 Streptoc occal sore throat 85196521 Completed 201102/05/2014 IMPRESSI ON: + RAPID STREP, 3RD EPISODE OF STREP IN 3 MONTHS; RECORDED 03/02/20 12 1:19PM BY CHAGO MONTIEL ON/ADDEN DUM Demetricekayden LYMAN-C [address] [facility] [address], [place], [address] , [facility] 6 10:10:41 Infectio n by Trichomo yimi [id number] Completed 201102/05/2014 RECORDED 03/02/20 12 1:20PM BY CHAGO MONTIEL ON/ADDEN DUM Demetriceangelica LYMAN-C [address] [facility] [address], [place], [address] , [facility] 6 10:10:41 Pruritus of genital organs 268934262 Completed 201102/05/2014 RECORDED 03/02/20 12 1:20PM BY CHAGO MONTIEL ON/ADDEN DUM Demetriceangelica LYMAN-C [address] [facility] [address], [place], [address] , [facility] 6 10:10:41 Viral disease 51800414 Completed 201102/05/2014 RECORDED 03/02/20 12 1:19PM BY CHAGO MONTIEL ON/ADDEN DUM Demetrice Wild VIEIRA [address] [facility] [address], [place], [address] , [facility] 6 10:10:41 Acute sinusiti s 48762276 Completed 201201/09/2014 RECORDED 08/05/19 13 1:24AM BY MARLINE ABRKER MA, ANNOTATI ON/ADDEN DUM Martín Covarrubias MA null, [facility] ([place], [place]) 7 11:46:29 Depressi ve disorder 01057033 Completed 201201/09/2014 RECORDED 08/05/19 13 1:24AM BY MARLINE BARKER MA, ANNOTATI ON/ADDEN DUM Shelly mcwilliams null, [facility] ([place], [place]) 9 16:38:20 Acute sinusiti s 74406901 Completed 201202/05/2014 RECORDED 08/05/19 13 1:24AM BY MARLINE BARKER MA, ANNOTATI ON/ADDEN DUM Martín Covarrubias MA null, [facility] ([place], [place]) 7 11:46:29 Synoviti s/tenosy novitis - hand 086697429 Completed 201201/09/2014 RECORDED 09/06/19 13 9:01AM BY ELSIE YI MA, ANNOTUMBERTO ON/ADDEN DUM Demetrice Wild VIEIRA [address] [facility] [address], [place], [address] , [facility] 6 10:10:41 Synoviti s/tenosy novitis - hand 735616712 Completed 201202/05/2014 RECORDED 09/06/19 13 9:01AM BY ELSIE YI MA, CHAGO ON/ADDEN DUM Demetrice Rome PA-C [address], [place], [address] , [facility] 6 10:10:41 Adult health examinat ion Completed 201201/09/2014 IMPRESSI ON: PAP AND MAMMOGRA M UTD (HAS APPT FOR MAMMO). WILL START EXERCISI NG CHANGING EATING HABITS.; RECORDED 01/06/20 13 10:33AM BY CHAGO MONTIEL ON/ADDEN DUM Demetrice Rome PA-C [address], [place], [address] , [facility] 6 10:10:42 Adult health examinat ion Completed 201202/05/2014 IMPRESSI ON: PAP AND MAMMOGRA M UTD (HAS APPT FOR MAMMO). WILL START EXERCISI NG CHANGING EATING HABITS.; RECORDED 01/06/20 13 10:33AM BY CHAGO MONTIEL ON/ADDEN DUM Demetrice Rome PA-C [address], [place], [address] , [facility] 6 10:10:42 Examinat ion for suspecte d mental disorder Completed 201301/09/2014 RECORDED 07/11/19 14 8:51AM BY CHAGO ESPARZA ON/ADDEN DUM Demetrice Rome PA-C [address], [place], [address] , [facility] 6 10:10:42 Depressi ve disorder 64984331 Com[facility] 201307/08/[facility] 16:[facility]20 Malaise and fatigue 706574391 Completed 201301/09/2014 IMPRESSI ON: CHECK FASTING; RECORDED 07/11/19 14 8:51AM BY CHAGO ESPARZA ON/ADDEN DUM Shelly mcwilliams null, [facility] [place]) 7 13:38:33 Pure hypercho lesterol emia 649335754 Completed 201301/09/2014 IMPRESSI ON: CHECK FASTING; RECORDED 07/11/19 14 8:51AM BY CHAGO ESPARZA ON/ADDEN DUM Demetrice Wild LYMAN-C [address], [place], [address] , [facility] 6 10:10:41 Migraine 58195882 Completed 201301/09/2014 STORY: PT NEEDS RE-EVAL W/ PMD; RECORDED 07/11/19 14 8:50AM BY CELESTE MATT I, ANNOTATI ON/ADDEN DUM Demetrice Wild LYMAN-C [address] [facility] [address], [place], [address] , [facility] 6 10:10:41 Administ ration of diphther ia, pertussi s, and tetanus vaccine Completed 201301/09/2014 RECORDED 07/11/19 14 8:51AM BY CHAGO ESPARZA ON/ADDEN DUM Demetrice Wild LYMAN-C [address] [facility] [address], [place], [address] , [facility] 6 10:10:41 Acute upper respirat ory infectio n 99839892 Completed 201301/09/2014 IMPRESSI ON: BETTER, RESOLVIN G, WORK NOTE OK TO RETURN TO WORK; RECORDED 07/11/19 14 8:51AM BY CELESTE MATT I ANNOTATI ON/ADDEN DUM Martín Covarrubias MA null, [facility] [place] 7 11:46:53 Examinat ion for suspecte d mental disorder Completed 201302/05/2014 RECORDED 07/11/19 14 8:51AM BY CHAGO ESPARZA ON/ADDEN DUM Demetrice Wild LYMAN-C [address] [facility] [address], [place], [address] , [facility] 6 10:10:42 Pure hypercho lesterol emia 549807691 Completed 201302/05/2014 IMPRESSI ON: CHECK FASTING; RECORDED 07/11/19 14 8:51AM BY CHAGO ESPARZA ON/ADDEN DUM Demetrice Rome SC-C [address] [facility] [address], [place], [address] , [facility] 6 10:10:41 Migraine 87554399 Completed 201302/05/2014 STORY: PT NEEDS RE-EVAL W/ PMD; RECORDED 07/11/19 14 8:50AM BY CHAGO ESPARZA ON/ADDEN DUM Demetrice Rome SC-C [address] [facility] [address], [place], [address] , [facility] 6 10:10:41 Administ ration of diphther ia, pertussi s, and tetanus vaccine Completed 201302/05/2014 RECORDED 07/11/19 14 8:51AM BY CHAGO ESPARZA ON/ADDEN DUM Demetrice Rome SC-C [address] [facility] [address], [place], [address] , [facility] 6 10:10:41 Acute upper respirat ory infectio n 62459935 Completed 201302/05/2014 IMPRESSI ON: BETTER, RESOLVIN G, WORK NOTE OK TO RETURN TO WORK; RECORDED 07/11/19 14 8:51AM BY CHAGO ESPARZA ON/ADDEN DUM RITA Montiel, [facility] [place] 7 11:46:53 Severe obesity 70214379334 104 Active 2018 Not Available [facility] 3 11:37:50 Depressi ve disorder 64116912 Completed 201810/26/[address] [facility] [place] 9 16:38:20 Deep venous thrombos is of upper extremit y [id number] Completed 201803/29/2023 Resolved with 3 mos darrell Jay MD [address], [place], [address] , [facility] 3 09:15:30 Chronic back pain 063841455 Active 2018 Follows PSSP. Joey Jay MD [address], [place], [address] , [facility] 3 09:14:50 Chronic vascular insuffic iency 96824010 Completed 201903/29/2023 Joey Jay MD [address], [place], [address] , [facility] 3 09:13:49 Candidia sis of mouth [id number] Completed 202003/29/2023 Joey Jay MD [address], [place], [address] , [facility] 3 09:14:09 History of deep vein thrombos is 268678239 Active 2022 Upper ext. on left side. s/p carpel tunnel. Joey Jay MD [address], [place], [address] , [facility] 3 09:15:28 Asthma 677657692 Active 2022 Joey Jay MD [address], [place], [address] , [facility] 3 09:17:38 Genital herpes simplex 95517593 Active 2022 Joey Jay MD [address], [place], [address] , [facility] 3 09:18:22 [facility] 48485[facility] Active 2022 Joey Jay MD [address], [place], [address] , [facility] 3 09:20:45 Temporom andibula r joint disorder 18097435 Active 2022 Joey Jay MD [address], [place], [address] , [facility] 3 09:38:01 SARS-CoV -2 Completed 202304/03/2024 Joey Jay MD [address], [place], [address] , [facility] 4 17:33:15 Prediabe anastacia 047714837 Active 2023 Joey Jay MD [address], [place], [address] , [facility] 4 17:31:04 History of SARS-CoV -2 [id number] 0292678 Active 2023 Joey Jay MD [address], [place], [address] , [facility] 4 17:33:23 Dependen ce on continuo us positive airway pressure ventilat ion 590274332 Active 2023 Joey Jay MD [address], [place], [address] , [facility] 4 14:59:07 Ex-smoke r 7727507 Active 2023 Joey Jay MD [address], [place], [address] , [facility] 4 14:59:29 Problem Notes None recorded. Procedures Surgical History Date Name Laterality Status Provider Name and Address Organization Details Recorded Time 025 Most Recent Mammogram completed Lisa Corea [facility], [place] 10/27/2024 14:52:55 05/01/2 025 Mammogram screening completed Lisa Corea [facility] [place] 10/27/2024 14:52:39 024 Mammogram Diagnostic Bilateral completed Marline Zurita MA [facility] [place] 04/04/2024 14:43:06 023 Date of Last Pap Smear completed Martín Covarrubias MA [facility] [place] 03/29/2023 09:08:16 020 Date of Last Colonoscopy completed Echo Morgan [facility] [place] 05/17/2020 14:38:45 020 Colonoscopy completed Echo Morgan [facility] [place] 05/17/2020 14:38:28 019 Orthopedic Surgery completed Elda Hnery [facility] [place] 06/16/2019 14:51:44 018 Laparo cholecystectomy/gr aph completed Elda oLpez [facility] [place] 03/25/2018 16:44:22 018 Cholecystectomy completed Elda Lopez [facility] [place] 03/25/2018 16:36:17 004 Carpal tunnel surgery completed Marline Zurita MA [facility] [place] 06/01/2014 15:17:04 981 Anesth surgery of shoulder completed Marline Zurita MA [facility] [place] 06/01/2014 15:17:04 Imaging Results None recorded. Procedure Notes None recorded. Medical Equipment None Reported. Allergies Allergen ID Allergen Name Allergen Category Reaction Reaction Severity Criticality Documentation Date Start Date Code Code System Note Provider Name and Address Organization Details Recorded Time 17906 ricki extract food anaphylax is Not available Not available 05/23/2018 [address] [facility] [place] 8 16:16:42 6073 Augmentin medicatio n other Not available Not available 01/09/20142013 52944 [address] [facility] [place] 4 15:07:34 6074 erythromy sabrina medicatio n vomiting Not available Not available 01/09/20142013 4053 [facility] 15:07:34 6075 tree nut food anaphylax is Not available Not available 01/09/20142013 KARENSjNaun HARRIS [facility] 15:07:34 6076 pineapple allergeni c extract food,medi cation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
--- OUTSIDE RECORDS SUMMARY | 2025-05-17 20:29 | XMS_ITS | Encounter Summary ---
Author Organization [facility] Address [address] [address] Phone Care Team Providers Care Technology Strategist Name Role Phone Shelly Vega MD Primary Care Prov ider Reason for Referral * MRI/CAT Scan - Closed Specialty Diagnoses / Procedures Referred By Contac t Referred To Contact Radiology Diagnoses Left lateral abdominal pain Procedures CT Abdomen/Pelvis Elda Henry NP Phone: tel: fax: Referral ID Status Reason Start Date Expiration Date Visits Re quested Visits Authorized [id number] Closed 01/31/2021 01/31/2022 1 1 Encounter Details Date Type Department Care Team (Late st Contact Info) Description 01/31/2021 Ancillary Orders Virtual Department [address] [place] [address] Elda Henry NP [phone] [facility] [address] [place] [address] Left lateral abdominal pain Social History Tobacco Use Types [...] documented as of this encounter Results * CT ABDOMEN/PELVIS WITH CONTRAST (01/31/2021 3:28 PM EDT) Anatomical Region Laterality Modality Abdomen, Pelvis Computed Tomogra phy 01/31/2021 3:33 PM EDT Impressions 01/31/2021 3:36 PM EDT No active inflammatory changes or specific source of left abdominal pain identified. Only a few scattered diverticula are noted. Narrative 01/31/2021 3:36 PM EDT HISTORY: Left-sided abdominal pain COMPARISON: Ultrasound January 28 TECHNIQUE: After the administration of oral and intravenous contrast, multidetector CT is obtained from dome of the liver through the inferior pubic rami. Sagittal and coronal reformats generated. Automated exposure control utilized. FINDINGS: Lung bases: 1-2 mm nodule left costophrenic angle. No findings of concern. Liver and spleen: Too small to characterize area in the caudal aspect of the posterior segment right hepatic lobe is likely a cyst. No lesions of clear concern. Spleen unremarkable. Several small splenules noted. Biliary tree and pancreas: Status post cholecystectomy. No worrisome biliary dilatation. Pancreas unremarkable. Adrenals and : No findings of concern. Bowel: No findings of concern. No evidence of diverticulitis or colitis. Nodes: No adenopathy detected. Vascular: No findings of concern. Soft tissues: No findings of concern. Bones: No findings of concern. Procedure Note Vickey Tompkins MD - 01/31/2021 HISTORY: Left-sided abdominal pain COMPARISON: Ultrasound January 28 TECHNIQUE: After the administration of oral and intravenous contrast,multidetector CT is obtained from dome of the liver through the inferiorpubic rami. Sagittal and coronal reformats generated. Automated exposurecontrol utilized. FINDINGS: Lung bases: 1-2 mm nodule left costophrenic angle. No findings ofconcern. Liver and spleen: Too small to characterize area in the caudal aspect ofthe posterior segment right hepatic lobe is likely a cyst. No lesions ofclear concern. Spleen unremarkable. Several small splenules noted. Biliary tree and pancreas: Status post cholecystectomy. No worrisomebiliary dilatation. Pancreas unremarkable. Adrenals and : No findings of concern. Bowel: No findings of concern. No evidence of diverticulitis or colitis. Nodes: No adenopathy detected. Vascular: No findings of concern. Soft tissues: No findings of concern. Bones: No findings of concern. IMPRESSION: No active inflammatory changes or specific source of left abdominal painidentified. Only a few scattered diverticula are noted. Elda Henry DATA OPERATIONS DIRECTOR IMG CT ABD/PELVIS Final Result documented in this encounter Visit Diagnoses Diagnosis Left lateral abdominal pain Left lateral abdominal pain documented in this encounter Care Teams Technology Strategist Relationship Specialty Start Date End Date Shelly Vega MD [address] [place] [address] [phone] PCP - General Internal Medicine 05/21/20 documented as of this encounter Additional Source Comments The information contained in this document represents components of the legal health record. It is not the complete legal health record.[facility]
--- OUTSIDE RECORDS SUMMARY | 2025-05-17 20:29 | XMS_ITS | Clinical Summary ---
Author Organization [facility] [address] [facility] Address [address] [place] [address] Phone Care Team Providers Care Maintenance Millwright Name Role Phone Joey Villalobos MD Primary Care Provider Allergies Active Allergy Reactions Criticality Noted Date Comments Banana 05/30/2024 Erythromycin 05/30/2024 Latex 05/30/2024 Stewart 05/30/2024 Pineapple 05/30/2024 Ponemah 05/30/2024 Medications valACYclovir (VALTREX) 500 mg tablet [...] Health Maintenance Due Date Last Done Comments Colorectal Cancer Screening: Colonoscopy 1970 Diabetes: Annual GFR (Glomerular Filtration Rate) 1970 Diabetes: Annual Foot Exam 1980 Diabetes: Annual Retina Eye Exam 1980 Hepatitis A Vaccines (1 of 2 - Risk 2-dose series) 1989 Hepatitis B Vaccines (1 of 3 - 19+ 3-dose series) 1989 Pneumococcal Vaccine: 50+ Years (1 of 2 - PCV) 1989 Cervical Cancer Screening: Pap Smear 1991 RSV Immunization Adult Patients (1 - Risk 50-74 years 1-dose series) 2020 Zoster Vaccines (1 of 2) 2020 DTaP,Tdap,and Td Vaccines (3 - Td or Tdap) 11/14/2022 11/14/2012, 01/21/1999 Cholesterol Screening (Lipid Panel) 04/21/2024 HIV Screening 04/21/2024 Hepatitis C Screening 04/21/2024 Social Influencers of Health Screening 04/21/2024 Diabetes: Annual Urine Albumin-Creatinine Ratio (uACR) 05/30/2024 Diabetes: Blood Sugar Control Test (HGBA1C) 05/30/2024 Depression Screening 06/28/2024 COVID-19 Vaccine ( season) 2025 02/26/2023, 05/02/2021, 08/16/2020, Additional history exists Influenza Vaccine (#1) 2025 2, 03/27/2021, 04/04/2020, Additional history exists Breast Cancer Screening 10/24/2025 10/25/2023 HIB Vaccines [...] age to complete this topic Meningococcal B Vaccine Aged Out No l onger eligible based on patient's age to complete this topic RSV Immunization Patients Under 20 months Aged Out No longer eligible based on patient's age to complete this topic Varicella Vaccines Aged Out No longer eligible based on patient's age to complete this topic Insurance [address] [place] [phone] [facility] [address] [place] [address] Care Teams Maintenance Millwright Relationship Specialty Start Date End Date Joey Villalobos MD [address] [facility] [address] [place] [phone] PCP - General Family Medicine 05/30/24
--- OUTSIDE RECORDS SUMMARY | 2025-05-17 20:30 | XMS_ITS | Encounter Summary ---
Author Organization [facility] Address [address] [place] [phone] Phone Care Team Providers Care Health And Social Care Teacher Name Role Phone Shelly Vega MD Primary Care Prov ider Reason for Referral * Physical Therapy (Routine) - Closed Specialty Diagnoses / Procedures Referred By Contbalwinder t Referred To Contact Physical Therapy Diagnoses Encounter for rehabilitation Joey Villalobos MD Phone: tel: fax: [facility] [address] [place] [address] Phone: tel: Referral ID Status Reason Start Date Expiration Date Visits Re quested Visits Authorized [id number] Closed 08/12/2020 06/27/2021 20 20 Encounter Details Date Type Department Care Team (Latest Contact Info) Description 08/12/2020 Transcribe Orders [facility] [address] [place] [address] Joey Villalobos MD [address] [facility] [address] [place] [phone] Encounter for rehabilitation (Primary Dx) Social History Tobacco Use Types Packs/Day Years Used Date Smoking Tobacco: Never Assessed Comments Unknown Sex and Gender Information Value Date Recorded Sex Assigned at Not on file Legal Sex Female 7:33 PM EST Gender Identity Not on file Sexual Orientation Not on file documented as of this encounter Plan of Treatment Not on file documented as of this encounter Procedures Procedure Name Priority Date/Time Associated Diagnosis Comments AMB REFERRAL TO [facility] PHYSICAL THERAPY Routine 08/19/2020 2:39 PM EST Encounter for rehabilitation documented in this encounter Results * Ambulatory referral to [facility] Physical Therapy (08/19/2020 2:39 PM EST) Joey Villalobos MD AMB [facility] REFERRALS Final Result documented in this encounter Visit Diagnoses Diagnosis Encounter for rehabilitation- Primary documented in this encounter Care Teams Health And Social Care Teacher Relationship Specialty Start Date End Date Shelly Vega MD [address] [place] [phone] PCP - General Internal Medicine 05/21/20 documented as of this encounter Additional Source Comments The information contained in this document represents components of the legal health record. It is not the complete legal health record.[facility]
--- OUTSIDE RECORDS SUMMARY | 2025-05-17 20:30 | XMS_ITS | Continuity of Care Document ---
Author Organization [facility], Main Office Address [address] [place] [address] Care Team Providers Care Deburrer Name Role Phone DINORA MUNOZ Thermoforming Operator SHAYY REMY Pottery Striper JOIE HODGE Orthopedic Surgeon [phone] [facility] Vascular Surgeon [phone] YAMINI BARNEY Guest Attendant MIGUEL BUSCH Run Lead [phone] DARYL ROBLES Child Psychologist JOEY JAY Primary Care Provider [phone] PRIYANKA HARRIS Neuropsychiatrist ENRIQUETA CRUZ Energy Auditor RENNY LEDEZMA Sap Technical Architect FIDELIA TILLMAN Oracle Hrms Developer [phone] Assessment No assessment recorded. Plan of Treatment Reminders Order Date Submit Date Provider Last Modified By Organization Details Last Modified Time Details Appointments None recorded. Lab None recorded. Referral None recorded. Procedures None recorded. Surgeries None recorded. Imaging exercise stress test - Chest discomfort and EKG raising question of possible ischemia. R/o ischemia. 2024 025 ann marie [facility] (Outt Non-Invasive Cardiology Scheduling), [address], [place], [address], 11:33:54 electrocard iogram 2024 025 NANCY In-Office Order, Internal Use Only DO Not Attach Compendium DO Not Attach Compendium, Do Not Delete/merge, [id number] 09:20:20 Medication Orders None recorded. Patient TargetsNo targets recorded. Patient Instructions Encounter Date Encounter Id Patient Instructions Last Modified By Organization Details Last Modified Time 04/18/2025 [id number] chest pain: care instructions acennerazzo Not available 04/18/2025 13:49:13 costochondritis: care instructions acennerazzo Not available 04/18/2025 13:49:28 Reason for Referral None Reported. Results Created Date Observation Date Name Description Value Unit Range Abnormal Flag Note LastModifiedBy Organization Detail LastModifiedTime 04/18/20 elect rocar diogr am No observ ation record ed. acennerazzo In-Office Order Internal Use Only DO Not Attach Compendium DO Not Attach Compendium, Do Not Delete/merge, [id number] 04/18/2025 18:02:36 04/19/2004/19/2025 elect rocar diogr am No observ ation record ed. acennerazzo In-Office Order Internal Use Only DO Not Attach Compendium DO Not Attach Compendium, Do Not Delete/merge, [id number] 04/19/2025 09:25:42 Result Notes None recorded. Problems Name Problem SNOMED Code Status Onset Date Resolution Date Notes Provider Name and Address Organization Details Recorded Time Acne 52112317 Completed 05/27/2017 Shelly nunez [facility] 7 13:38:54 Acute pharyngi tis 006931887 Completed 05/27/2017 RITA Montiel [facility] 7 11:46:49 Allergic rhinitis 98865372 Active Not Available [facility] 3 11:37:50 Anxiety state 489832526 Active Not Available [facility] 3 11:37:50 Malaise and fatigue 335076878 Completed 05/27/2017 Shelly nunez [facility] 7 13:38:33 Gastroes ophageal reflux disease 988777284 Active Not Available [facility] 3 11:37:50 Irritabl e bowel syndrome 13253804 Active Not Available [facility] 3 11:37:50 Palpitat ions 64568819 Completed 05/27/2017 Shelly nunez [facility] 7 13:38:45 Tobacco user 015563286 Completed 07/08/2015 Demetrice Rome PA-C [address], [place], [address] , [facility] 6 10:10:41 History of clinical finding in subject 737624244 Completed 07/09/2015 Demetrice Rome PA-C [address], [place], [address] , [facility] 6 10:10:41 Chronic sinusiti s 03455701 Completed 05/27/2017 Shelly nunez [facility] 7 13:38:40 Tobacco dependen ce syndrome 48886544 Completed 05/27/2017 Quit 2008 RITA Montiel [facility] 7 11:47:30 Acute upper respirat ory infectio n 45163898 Completed 05/27/2017 RITA Montiel [facility] 7 11:46:53 Left flank pain 720191590 Completed 05/27/2017 RITA Montiel [facility] 7 11:46:36 Pyelonep hritis 60901044 Completed 05/27/2017 RITA Montiel [facility] 7 11:47:21 Migraine 82493631 Active Not Available [facility] 3 11:37:50 Sleep apnea 44809315 Completed 07/09/2015 Demetrice Rome PA-C [address], [place], [address] , [facility] 6 10:10:41 Body mass index 30+ - obesity 975715678 Completed 07/06/2018 Removal Reason: BMI increase d Jolie Alvarez mayra [facility] 9 10:16:54 Acute sinusiti s 97084836 Completed 05/27/2017 RITA Montiel, [facility] 7 11:46:29 Obstruct favian sleep apnea syndrome 03015954 Active on CPAP Joey Jay MD [address], [place], [address] , [facility] 5 20:00:47 Impaired fasting glycemia 471603099 Completed 05/27/2017 RITA Montiel [facility] 7 11:47:01 Uncontro lled type 2 diabetes mellitus 159229065 Completed 05/27/2017 A1C was 6.1; diet-con trolled RITA Montiel, [facility] 7 11:47:16 Diabetes mellitus 33914607 [facility] 13:01:55 Impaired glucose toleranc e 6993958 Completed 04/03/2024 Joey Jay MD [address], [place], [address] , [facility] 4 17:33:08 Morbid obesity 235445997 Completed 05/27/2017 RITA Montiel, [facility] 7 11:47:45 Depressi ve disorder 81204780 Completed 05/27/2017 Shelly nunez [facility] 9 16:38:20 Suspecte d COVID-19 973799707 Completed 01/29/2021 Removal Reason: Problem added by user [email or web address] 5 from the COVID-19 watch flag Winnieneisha nunez [facility] 1 10:02:17 Dysfunct ional uterine bleeding Completed 200203/29/2023 Joey Jay MD [address] [address], [place], [address] , [facility] 3 09:15:48 Carpal tunnel syndrome 28757833 Completed 200305/27/2017 Had surgery Martín Covarrubias MA [facility], [facility] 7 11:47:24 Acute frontal sinusiti s 54999275 Completed 200801/09/2014 RECORDED 02/07/20 09 8:16AM BY CHAGO MERCADO ON/ADDEN DUM Demetrice Wild VIEIRA [address] [address], [place], [address] , [facility] 6 10:10:41 Allergic rhinitis 55461239 Completed 200801/09/2014 IMPRESSI ON: WILL TAKE OTC ZYRTEC AND NASAL SPRAY, STOP BENADRYL ; RECORDED 02/07/20 09 8:16AM BY CHAGO MERCADO ON/ADDEN DUM Demetrice Wild WHITTAKERC [address] [address], [place], [address] , [facility] 6 10:10:41 Ulcerati ve rhinitis 91406716 Completed 200801/09/2014 RECORDED 02/07/20 09 8:16AM BY CHAGO MERCADO ON/ADDEN DUM Demetrice Wild WHITTAKERC [address] [address], [place], [address] , [facility] 6 10:10:41 Candidal vulvovag initis 92180459 Completed 200801/09/2014 IMPRESSI ON: TX FOR YEAST VAGINITI S; RECORDED 02/07/20 09 8:16AM BY CHAGO MERCADO ON/ADDEN DUM Demetrice Wild WHITTAKERC [address] [address], [place], [address] , [facility] 6 10:10:41 Acute frontal sinusiti s 43123954 Completed 200802/05/2014 RECORDED 02/07/20 09 8:16AM BY RITA STANTON, ANNOTATI ON/ADDEN DUM Demetrice Rome PA-C [address], [place], [address] , [facility] 6 10:10:41 Ulcerati ve rhinitis 03615741 Completed 200802/05/2014 RECORDED 02/07/20 09 8:16AM BY RITA STANTON, ANNOTATI ON/ADDEN DUM Demetrice Rome PA-C [address], [place], [address] , [facility] 6 10:10:41 Candidal vulvovag initis 02376478 Completed 200802/05/2014 IMPRESSI ON: TX FOR YEAST VAGINITI S; RECORDED 02/07/20 09 8:16AM BY RITA STANTON, ANNOTATI ON/ADDEN DUM Demetrice Rome PA-C [address], [place], [address] , [facility] 6 10:10:41 Screenin g for malignan t neoplasm of breast Completed 200901/09/2014 RECORDED 06/11/20 10 2:13PM BY MARTÍN COVARRUBIAS, OFFICE VISIT Demetrice WHITTAKERC [address], [place], [address] , [facility] 6 10:10:42 Screenin g for malignan t neoplasm of breast Completed 200902/05/2014 RECORDED 06/11/20 10 2:13PM BY MARTÍN COVARRUBIAS, OFFICE VISIT Demetrice WHITTAKERC [address], [place], [address] , [facility] 6 10:10:42 Influenz a vaccine needed 07113759113 06 Completed 200901/09/2014 RECORDED 06/24/20 10 12:51PM BY MARTÍN COVARRUBIAS, HEMAIC AL SUMMARY Demetrice Rome PA-C [address], [place], [address] , [facility] 6 10:10:41 Influenz a vaccine needed 11512845946 06 Completed 200902/05/2014 RECORDED 06/24/20 10 12:51PM BY MARTÍN COVARRUBIAS, HEMAIC AL SUMMARY Demetrice Cuellarden PA-C [address], [place], [address] , [facility] 6 10:10:41 Amenorrh ea 73223272 Completed 201101/09/2014 RECORDED 03/02/20 12 1:19PM BY CHAGO MONTIEL ON/ADDEN DUM Demetrice Rome PA-C [address], [place], [address] , [facility] 6 10:10:41 Urinary tract infectio us disease 74999292 Completed 201101/09/2014 RECORDED 03/02/20 12 1:19PM BY CHAGO MONTIEL ON/ADDEN DUM Demetrice Rome PA-C [address] [facility] [address], [place], [address] , [facility] 6 10:10:41 Vaginiti s and vulvovag initis Completed 201101/09/2014 IMPRESSI ON: + GARDNERE LLA, SYMPTOMA TIC; RECORDED 03/02/20 12 1:20PM BY CHAGO MONTIEL ON/ADDEN DUM Demetrice Rome PA-C [address], [place], [address] , [facility] 6 10:10:41 Exposure to organism Completed 201101/09/2014 RECORDED 03/02/20 12 1:19PM BY CHAGO MONTIEL ON/ADDEN DUM Demetrice Rome PA-C [address], [place], [address] , [facility] 6 10:10:41 Cough 99387595 Completed 201101/09/2014 IMPRESSI ON: APPEARS VIRAL; RECORDED 03/02/20 12 1:20PM BY CHAGO MONTIEL ON/ADDEN DUM Demetrice Rome PA-C [address], [place], [address] , [facility] 6 10:10:41 Dysphagi a 88637455 Completed 201101/09/2014 RECORDED 03/02/20 12 1:20PM BY CHAGO MONTIEL ON/ADDEN DUM Demetrice Rome PA-C [address], [place], [address] , [facility] 6 10:10:41 Abdomina l pain 59894414 Completed 201101/09/2014 IMPRESSI ON: X 1 DAY. NO URINARY SXS, F/C OR GI SXS, BLOOD MOST LIKELY SECONDAR Y TO MENSES. REST, WARM COMPRESS ES, PAIN MED PRN. TO MONITOR URINE AT HOME (PROVIDE D WITH STRAINER ) AND WE WILL ARRANGE FOR US TOMORROW . CONTACT US SOONER PRN.; RECORDED 03/02/20 12 1:19PM BY CHAGO MONTIEL ON/MARELY DUM Demetrice Rome PA-C [address], [place], [address] , [facility] 6 10:10:41 Well child 020386652 Completed 201101/09/2014 RECORDED 03/02/20 12 1:20PM BY CHAGO MONTIEL ON/MARELY DUM Demetrice Rome PA-C [address] [facility] [address], [place], [address] , [facility] 6 10:10:42 Headache 28406296 Completed 201101/09/2014 RECORDED 03/02/20 12 1:20PM BY CHAGO MONTIEL ON/ADDEN DUM Demetrice Rome PA-C [address], [place], [address] , [facility] 6 10:10:41 Breast lump 65662995 Completed 201101/09/2014 RECORDED 03/02/20 12 1:20PM BY CHAGO MONTIEL ON/ADDEN DUM Demetrice Rome PA-C [address], [place], [address] , [facility] 6 10:10:41 Eruption 927781483 Completed 201101/09/2014 IMPRESSI ON: SUSPECT SECONDAR Y TO STREP THROAT INFECTIO N. DOES NOT APPEAR TO BE SCARLET FEVER THOUGH; RECORDED 03/02/20 12 1:19PM BY CHAGO MONTIEL ON/ADDEN DUM Demetrice Strolby PA-C [address] [facility] [address], [place], [address] , [facility] 6 10:10:41 Screenin g for malignan t neoplasm of colon Completed 201101/09/2014 RECORDED 03/02/20 12 1:19PM BY CHAGO MONTIEL ON/ADDEN DUM Demetrice Strolby PA-C [address] [facility] [address], [place], [address] , [facility] 6 10:10:42 Streptoc occal sore throat 47402659 Completed 201101/09/2014 IMPRESSI ON: + RAPID STREP, 3RD EPISODE OF STREP IN 3 MONTHS; RECORDED 03/02/20 12 1:19PM BY CHAGO MONTIEL ON/ADDEN DUM Demetrice Rome PA-C [address], [place], [address] , [facility] 6 10:10:41 Infectio n by Trichomo yimi 32505578 Completed 201101/09/2014 RECORDED 03/02/20 12 1:20PM BY CHAGO MONTIEL ON/ADDEN DUM Demetrice Rome PA-C [address], [place], [address] , [facility] 6 10:10:41 Pruritus of genital organs 302031387 Completed 201101/09/2014 RECORDED 03/02/20 12 1:20PM BY CHAGO MONTIEL ON/ADDEN DUM Demetrice Rome PA-C [address], [place], [address] , [facility] 6 10:10:41 Viral disease 73396546 Completed 201101/09/2014 RECORDED 03/02/20 12 1:19PM BY CHAGO MONTIEL ON/ADDEN DUM Demetrice Rome PA-C [address] [facility] [address], [place], [address] , [facility] 6 10:10:41 Amenorrh ea 09923833 Completed 201102/05/2014 RECORDED 03/02/20 12 1:19PM BY CHAGO MONTIEL ON/ADDEN DUM Demetrice Rome PA-C [address] [facility] [address], [place], [address] , [facility] 6 10:10:41 Urinary tract infectio us disease 29898290 Completed 201102/05/2014 RECORDED 03/02/20 12 1:19PM BY CHAGO MONTIEL ON/ADDEN DUM Demetrice Rome PA-C [address] [facility] [address], [place], [address] , [facility] 6 10:10:41 Vaginiti s and vulvovag initis Completed 201102/05/2014 IMPRESSI ON: + GARDNERE LLA, SYMPTOMA TIC; RECORDED 03/02/20 12 1:20PM BY CHAGO MONTIEL ON/ADDEN DUM Demetrice Rome PA-C [address], [place], [address] , [facility] 6 10:10:41 Exposure to organism Completed 201102/05/2014 RECORDED 03/02/20 12 1:19PM BY CHAGO MONTIEL ON/ADDEN DUM Demetrice Rome PA-C [address] [facility] [address], [place], [address] , [facility] 6 10:10:41 Cough 85186886 Completed 201102/05/2014 IMPRESSI ON: APPEARS VIRAL; RECORDED 03/02/20 12 1:20PM BY CHAGO MONTIEL ON/ADDEN DUM Demetrice Rome PA-C [address] [facility] [address], [place], [address] , [facility] 6 10:10:41 Dysphagi a 22487882 Completed 201102/05/2014 RECORDED 03/02/20 12 1:20PM BY CHAGO MONTIEL ON/ADDEN DUM Demetrice Rome PA-C [address] [facility] [address], [place], [address] , [facility] 6 10:10:41 Abdomina l pain 61286091 Completed 201102/05/2014 IMPRESSI ON: X 1 DAY. NO URINARY SXS, F/C OR GI SXS, BLOOD MOST LIKELY SECONDAR Y TO MENSES. REST, WARM COMPRESS ES, PAIN MED PRN. TO MONITOR URINE AT HOME (PROVIDE D WITH STRAINER ) AND WE WILL ARRANGE FOR US TOMORROW . CONTACT US SOONER PRN.; RECORDED 03/02/20 12 1:19PM BY CHAGO MONTIEL ON/ADDEN DUM Demetrice Rome PA-C [address] [facility] [address], [place], [address] , [facility] 6 10:10:41 Well child 564338298 Completed 201102/05/2014 RECORDED 03/02/20 12 1:20PM BY CHAGO MONTIEL ON/ADDEN DUM Demetrice Rome PA-C [address], [place], [address] , [facility] 6 10:10:42 Headache 82748040 Completed 201102/05/2014 RECORDED 03/02/20 12 1:20PM BY CHAGO MONTIEL ON/ADDEN DUM Demetrice Rome PA-C [address], [place], [address] , [facility] 6 10:10:41 Breast lump 38571890 Completed 201102/05/2014 RECORDED 03/02/20 12 1:20PM BY CHAGO MONTIEL ON/ADDEN DUM Demetrice Rome PA-C [address], [place], [address] , [facility] 6 10:10:41 Eruption 621661628 Completed 201102/05/2014 IMPRESSI ON: SUSPECT SECONDAR Y TO STREP THROAT INFECTIO N. DOES NOT APPEAR TO BE SCARLET FEVER THOUGH; RECORDED 03/02/20 12 1:19PM BY CHAGO MONTIEL ON/ADDEN DUM Demetrice Wild LYMAN-C [address], [place], [address] , [facility] 6 10:10:41 Screenin g for malignan t neoplasm of colon Completed 201102/05/2014 RECORDED 03/02/20 12 1:19PM BY CHAGO MONTIEL ON/ADDEN DUM Demetrice Rome PA-C [address], [place], [address] , [facility] 6 10:10:42 Streptoc occal sore throat 89471879 Completed 201102/05/2014 IMPRESSI ON: + RAPID STREP, 3RD EPISODE OF STREP IN 3 MONTHS; RECORDED 03/02/20 12 1:19PM BY CHAGO MONTIEL ON/ADDEN DUM Demetrice Rome PA- [address] [facility] [address], [place], [address] , [facility] 6 10:10:41 Infectio n by Sujrit geller 79379731 Completed 201102/05/2014 RECORDED 03/02/20 12 1:20PM BY CHAGO MONTIEL ON/ADDEN DUM Demetrice Rome UT-C [address] [facility] [address], [place], [address] , [facility] 6 10:10:41 Pruritus of genital organs 005606798 Completed 201102/05/2014 RECORDED 03/02/20 12 1:20PM BY CHAGO MONTIEL ON/ADDEN DUM Demetrice Rome UTFanzyC [address] [facility] [address], [place], [address] , [facility] 6 10:10:41 Viral disease 68253565 Completed 201102/05/2014 RECORDED 03/02/20 12 1:19PM BY CHAGO MONTIEL ON/ADDEN DUM Demetrice Rome UTFanzyC [address] [facility] [address], [place], [address] , [facility] 6 10:10:41 Acute sinusiti s 01995863 Completed 201201/09/2014 RECORDED 08/05/19 13 1:24AM BY MARLINE BARKER MA, ANNOTATI ON/ADDEN DUM RITA Montiel, [facility] 7 11:46:29 Depressi ve disorder 02163522 Completed 201201/09/2014 RECORDED 08/05/19 13 1:24AM BY MARLINE BARKER MA, ANNOTATI ON/ADDEN DUM Shelly nunez, [facility] 9 16:38:20 Acute sinusiti s 66777464 Completed 201202/05/2014 RECORDED 08/05/19 13 1:24AM BY MARLINE BARKER MA, ANNOTATI ON/ADDEN DUM [facility]ín [facility]ias [facility] 7 11:46:29 Synoviti s/tenosy novitis - hand 362231957 Completed 201201/09/2014 RECORDED 09/06/19 13 9:01AM BY ELSIE YI MA, ANNOTATI ON/ADDEN DUM Demetrice Rome PA-C [address], [place], [address] , [facility] 6 10:10:41 Synoviti s/tenosy novitis - hand 392725720 Completed 201202/05/2014 RECORDED 09/06/19 13 9:01AM BY ELSIE YI MA, ANNOTATI ON/ADDEN DUM Demetrice Rome PA-C [address], [place], [address] , [facility] 6 10:10:41 Adult health examinat ion Completed 201201/09/2014 IMPRESSI ON: PAP AND MAMMOGRA M UTD (HAS APPT FOR MAMMO). WILL START EXERCISI NG CHANGING EATING HABITS.; RECORDED 01/06/20 13 10:33AM BY CHAGO MONTIEL ON/ADDEN DUM Demetrice Rome PA-C [address], [place], [address] , [facility] 6 10:10:42 Adult health examinat ion Completed 201202/05/2014 IMPRESSI ON: PAP AND MAMMOGRA M UTD (HAS APPT FOR MAMMO). WILL START EXERCISI NG CHANGING EATING HABITS.; RECORDED 01/06/20 13 10:33AM BY CHAGO MONTIEL ON/ADDEN DUM Demetrice Rome PA-C [address], [place], [address] , [facility] 6 10:10:42 Examinat ion for suspecte d mental disorder Completed 201301/09/2014 RECORDED 07/11/19 14 8:51AM BY CHAGO ESPARZA ON/ADDEN DUM Demterice Wild VIEIRA [address] [facility] [address], [place], [address] , [facility] 6 10:10:42 Depressi ve disorder 53729821 Completed 201307/08/2015 Shelly davisenzo mayra, [facility] 9 16:38:20 Malaise and fatigue 873998444 Completed 201301/09/2014 IMPRESSI ON: CHECK FASTING; RECORDED 07/11/19 14 8:51AM BY CHAGO ESPARZA ON/ADDEN DUM Shelly Thad davisenzo null, [facility] 7 13:38:33 Pure hypercho lesterol emia 846504185 Completed 201301/09/2014 IMPRESSI ON: CHECK FASTING; RECORDED 07/11/19 14 8:51AM BY CHAGO ESPARZA ON/ADDEN DUM Demetrice Wild VIEIRA [address] [facility] [address], [place], [address] , [facility] 6 10:10:41 Migraine 11106410 Completed 201301/09/2014 STORY: PT NEEDS RE-EVAL W/ PMD; RECORDED 07/11/19 14 8:50AM BY CHAGO ESPARZA ON/ADDEN DUM Demetrice Wild WHITTAKERC [address] [facility] [address], [place], [address] , [facility] 6 10:10:41 Administ ration of diphther ia, pertussi s, and tetanus vaccine Completed 201301/09/2014 RECORDED 07/11/19 14 8:51AM BY CHAGO ESPARZA ON/ADDEN DUM Demetrice Wild LYMAN-C [address] [facility] [address], [place], [address] , [facility] 6 10:10:41 Acute upper respirat ory infectio n 26905854 Completed 201301/09/2014 IMPRESSI ON: BETTER, RESOLVIN G, WORK NOTE OK TO RETURN TO WORK; RECORDED 07/11/19 14 8:51AM BY CHAGO ESPARZA ON/ADDEN DUM Martín Covarrubias MA [facility] 7 11:46:53 Examinat ion for suspecte d mental disorder Completed 201302/05/2014 RECORDED 07/11/19 14 8:51AM BY CHAGO ESPARZA ON/ADDEN DUM Demetricekayden WHITTAKERC [address], [place], [address] , [facility] 6 10:10:42 Pure hypercho lesterol emia 985209123 Completed 201302/05/2014 IMPRESSI ON: CHECK FASTING; RECORDED 07/11/19 14 8:51AM BY CHAGO ESPARZA ON/ADDEN DUM Demetricekayden WHITTAKERC [address] [facility] [address], [place], [address] , [facility] 6 10:10:41 Migraine 05780418 Completed 201302/05/2014 STORY: PT NEEDS RE-EVAL W/ PMD; RECORDED 07/11/19 14 8:50AM BY CHAGO ESPARZA ON/ADDEN DUM Demetrice Wild WHITTAKERC [address], [place], [address] , [facility] 6 10:10:41 Administ ration of diphther ia, pertussi s, and tetanus vaccine Completed 201302/05/2014 RECORDED 07/11/19 14 8:51AM BY CHAGO ESPARZA ON/ADDEN DUM Demetrice Wild WHITTAKERC [address] [facility] [address], [place], [address] , [facility] 6 10:10:41 Acute upper respirat ory infectio n 78377535 Completed 201302/05/2014 DOMENICOI ON: BETTER, RADHA G, WORK NOTE OK TO RETURN TO WORK; RECORDED 07/11/19 14 8:51AM BY CELESTE MATT I, ANNOTATI ON/ADDEN DUM RITA Montiel, [facility] 7 11:46:53 Severe obesity [id number] 104 Active 2018 Not Available [facility] 3 11:37:50 Depressi ve disorder 28191220 Completed 201810/26/2018 Shelly nunez, [facility] 9 16:38:20 Deep venous thrombos is of upper extremit y 845229514 Completed 201803/29/2023 Resolved with 3 mos darrell Jay MD [address] [address], [place], [address] , [facility] 3 09:15:30 Chronic back pain 338780003 Active 2018 Follows [facility]. Joey Jay MD [address] [address], [place], [address] , [facility] 3 09:14:50 Chronic vascular insuffic iency 25943029 Completed 201903/29/2023 Joey Jay MD [address] [address], [address] , [facility] 3 09:13:49 Candidia sis of mouth 57336089 Completed 202003/29/2023 Joey Jay MD [address] [address], [place], [address] , [facility] 3 09:14:09 History of deep vein thrombos is 031619788 Active 2022 Upper ext. on left side. s/p carpel tunnel. Joey Jay MD [address], [place], [address] , [facility] 3 09:15:28 Asthma 064566395 Active 2022 Joey Jay MD [address], [place], [address] , [facility] 3 09:17:38 Genital herpes simplex 13810558 Active 2022 Joey Jay MD [address], [place], [address] , [facility] 3 09:18:22 Chronic alcoholi sm in [facility] n 361939426 Active 2022 Joey Jay MD [address], [place], [address] , [facility] 3 09:20:45 Temporom andibula r joint disorder 42622743 Active 2022 Joey Jay MD [address], [place], [address] , [facility] 3 09:38:01 SARS-CoV -2 Completed 202304/03/2024 Joey Jay MD [address], [place], [address] , [facility] 4 17:33:15 Prediabe anastacia 931058868 Active 2023 Joey Jay MD [address], [place], [address] , [facility] 4 17:31:04 History of SARS-CoV -2 02421750574 5655189 Active 2023 Joey Jay MD [address], [place], [address] , [facility] 4 17:33:23 Dependen ce on continuo us positive airway pressure ventilat ion 857842001 Active 2023 Joey Jay MD [address], [place], [address] , [facility] 4 14:59:07 Ex-smoke r 4274238 Active 2023 Joey Jay MD [address], [place], [address] , [facility] 4 14:59:29 Problem Notes None recorded. Procedures Surgical History Date Name Laterality Status Provider Name and Address Organization Details Recorded Time 025 Most Recent Mammogram completed Lisa Corea [facility] 10/27/2024 14:52:55 025 Mammogram screening completed Lisa Corea [facility] 10/27/2024 14:52:39 024 Mammogram Diagnostic Bilateral completed Marline Zurita MA [facility] 04/04/2024 14:43:06 023 Date of Last Pap Smear completed Martín Covarrubias MA [facility] 03/29/2023 09:08:16 020 Date of Last Colonoscopy completed Echo Morgan [facility] 05/17/2020 14:38:45 020 Colonoscopy completed Echo Morgan [facility] 05/17/2020 14:38:28 019 Orthopedic Surgery completed Elda Henry [facility] 06/16/2019 14:51:44 018 Laparo cholecystectomy/gr aph completed Elda Lopez [facility] 03/25/2018 16:44:22 018 Cholecystectomy completed Elda Lopez [facility] 03/25/2018 16:36:17 004 Carpal tunnel surgery completed Marline Zurita MA [facility] 06/01/2014 15:17:04 981 Anesth surgery of shoulder completed Marline Zurita MA [facility] 06/01/2014 15:17:04 Imaging Results None recorded. Procedure Notes None recorded. Medical Equipment None Reported. Allergies Allergen ID Allergen Name Allergen Category Reaction Reaction Severity Criticality Documentation Date Start Date Code Code System Note Provider Name and Address Organization Details Recorded Time 77434 ricki extract food anaphylax is Not available Not available 05/23/2018 25275 32 [facility] 16:16:42 6073 Augmentin medicatio n other Not available Not available 01/09/20142013 50178 2 [facility] 15:07:34 6074 erythromy sabrina medicatio n vomiting Not available Not available 01/09/20142013 4053 [facility]Norm [facility] 15:07:34 6075 tree nut food anaphylax is Not available Not available 01/09/20142013 [facility] 4 15:07:34 6076 pineapple allergeni c extract food,medi cation other Not available Not available 01/09/20142013 77994 5 [facility]Norm [facility] 15:07:34 Medications Name Sig Start Date [...] completed Not Available Not Available Not Available azithromy sabrina 250 mg tabs active Not Available Not Available Not Available topiramat [...] Rhinocort Aqua 32 mcg/actua tion nasal spray [place] 2sprays each nostril daily 2014 active Not [...] completed RECORDED 01/23/20 11 12:11PM BY KASSI YI, PA-C, MEDICATI ON AUTO-HARMEET CTIVATIO N; Not [...] e 50 mcg/actua tion nasal spray,chaka pension [place] 2 sprays every day by intranas al [...] 07/02 completed RECORDED 07/02/19 11 3:14PM BY MARCELA COLLIRE, ANNOTATI ON/ADDEN DUM; Not Available Not Available [...] Not Available Not Available Not Available Fluzone 3655-8780 45 mcg (15 mcg x 3)/0.5 mL [...] Details Last Updated DateTime 5 154.94 cm 45 kg/m2 745498. 08 g 90 /min 97 % 98.2 [degF] 101/66 mm[Hg] Sami Gabriel MA [facility] 5 13:13:04 Social History Question Answer Notes LastModified by Organizat ion Details LastModified Time Tobacco Smoking Status [facility] 08/06/2020 15:44:18 Do You Have An Advance [...] 04/10/2025 When Did You Quit Smoking? 11-15yearssi [email or web address] ette Information not available 08/06/2020 Live Alone [...] Or Greater Than 100 Degrees Fahrenheit? No [email or web address] Information not available 07/13/2020 Are You Or Anyone In Your Household A Health Care Provider Or Emergency Responder? Yes [email or web address] Information not available 07/13/2020 To The Best Of Your Knowledge Have You Been In Close Proximity To Any Individual Who Tested Positive For COVID-19? No [email or web address] Information not available 07/13/2020 *AWV ONLY* Are [...] Gathering In The Last 10 Days? No Information not available 07/13/2020 What Was The Date Of Your Most Recent Tobacco Screening? 06/14/2024 Information not available 06/14/2024 How Many Children Do You Have? 0 Information not available 03/27/2022 What Is Your Current Pack Years? 20-29packyea rs Information not available 03/27/2022 Do You Use Protection During Sex? 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 Never used electronic cigarettes Information not available 03/27/2022 What is your exercise level? Occasional walking Information not available 04/04/2024 Mental Status None recorded. Family History Relationship Description Onset Age of this Age Resolved Age Notes LastModified by Organization Details LastModified Time Mother Primary malignant neoplasm of rectum 60 Not available 03/27 15:40:43 Father Essential hypertension [email or web address] Not available 15:40:43 Father Hypercholest erolemia acennerazzo Not available 06/28 14:25:00 Father Diabetes mellitus [email or web address] Not available 06/28 14:25:00 Father Cognitive disorder 86 [email or web address] s Not available 04/10/2025 13:10:33 Maternal Grandmother Malignant neoplasm of breast johnnie Not available 06/28 14:25:00 Paternal Grandmother Coronary arterioscler osis Not available 03/27 15:40:43 Brother Cerebrovascu lar accident 65 x2; smoker [email or web address] s Not available 04/10/2025 13:10:48 Medical History Condition Response Gout N Other N Kidney Stones N Blood Diseases N Hyperthyroidism N Breast Cancer N COPD N Depression Y Lung Disease N Hypothyroidism N Defects or Inherited Disease N Anesthesia Complications Y Headaches/Migraines Y Anxiety Disorder Y Varicose Veins N Obesity N Vision or Eye Problems N Arthritis N Head Injury/Concussion N Polyps N Infertility N Congenital Anomalies N Acid Reflux (GERD) [...] virus, trivalent, preservative 4 completed RITA Montiel [facility] 03/29/2023 09:01:50 Influenza, split virus, trivalent, PF 5 completed Kourtney nunez [facility] 03/02/2023 09:21:38 Influenza, split virus, quadrivalent, preservative 7 completed RITA Montiel [facility] 03/29/2023 09:01:50 Influenza, split virus, quadrivalent, preservative 8 completed RITA Montiel [facility] 03/29/2023 09:01:50 Influenza, split virus, trivalent, preservative 9 completed RITA Montiel, [facility] 03/29/2023 09:01:50 COVID-19, mRNA, LNP-S, PF, 100 mcg/0.5mL dose or 50 mcg/0.25mL dose 1 completed Kourtney nunez, [facility] 03/02/2023 09:21:38 COVID-19, mRNA, LNP-S, PF, 100 mcg/0.5mL dose or 50 mcg/0.25mL dose 1 completed Kourtney nunez, [facility] 03/02/2023 09:21:38 COVID-19, mRNA, LNP-S, PF, 100 mcg/0.5mL dose or 50 mcg/0.25mL dose 1 completed Kourtney nunez, [facility] 03/02/2023 09:21:38 Influenza, split virus, quadrivalent, PF 0 completed Kourtney unnez, [facility] 03/02/2023 09:21:38 Influenza, split virus, trivalent, preservative 4 completed Kourtney Minor null, [facility] 03/02/2023 09:21:38 Influenza, split virus, quadrivalent, PF 8 completed Kourtney Gaxiola null, [facility] 03/02/2023 09:21:38 Influenza, split virus, quadrivalent, PF 9 completed Kourtney Minor null, [facility] 03/02/2023 09:21:38 Influenza, split virus, quadrivalent, PF 1 completed Kourtneyadonay Gaxiola null, [facility] 03/02/2023 09:21:38 Influenza, MDCK, quadrivalent, preservative 7 completed Kourtney Minor nunez [facility] 03/02/2023 09:21:38 Influenza, split virus, quadrivalent, preservative 2 completed Kourtney nunez [facility] 03/02/2023 09:21:37 COVID-19, mRNA, LNP-S, bivalent, PF, 50 mcg/0.5 mL or 25mcg/0.25 mL dose 3 completed RITA Montiel [facility] 03/29/2023 09:01:50 Td (adult), 2 Lf tetanus toxoid, preservative free, adsorbed 9 completed Kourtney nunez [facility] 03/02/2023 09:21:38 Influenza, split virus, trivalent, preservative 0 completed Kourtney nunez [facility] 03/02/2023 09:21:38 Tdap 3 completed Kourtney nunez [facility] 03/02/2023 09:21:38 Past Encounters Encounter ID Performer Location Encounter Start Date Encounter Closed Date Diagnosis/Indication Diagnosis SNOMED-CT Code Diagnosis ICD10 Code Diagnosis IMO Codes Diagnosis Note [id number] Joey Jay MD Main Office [address] [facility] [address] [place] [address] 04/10/2025 12:54:27 04/10/2025 13:48:11 Adult health examination 098560010 Z00.00 Patient was counseled on healthy diet, [...] script given againZoste r rec: script given [id number] : script givenInflu billy: plans to get at work.Covid :encourage updated vaccine Advised to spread vaccine but shingrix is 2 mo apart. Routine labs today Immunizati on status reviewed. Will screen based on risk factors. Regular dental and ophtho care advised as well as seat belt and sunscreen use. Distracted driving discussed. Medication reconciled . Anxiety state 371649167 F41.1 No thoughts of self harm or harming others. 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 Prediabetes 963352866 R7 3.03 Fatigue 93552502 R53.83 Hyperlipidemia 20737087 E78.5 Severe obesity 492999092 1 9104 E66.01 -Advise to consider nume.- Diet and exercise discussed- Patient made aware of risks of obesity- Encouraged to loose weight. Goal set to loose weight at 1-1.5 Lbs/week- Avoid starchy and fatty food- Encouraged use of green vegetables and fruits- Consider Bariatric Surgery evaluation Body mass index 40+ - severely obese 684266403 Z68.41 Administra tion of viral vaccine 85615938 Z23 Varicella vaccination 68 925347 Z23 Administra tion of pneumococcal vaccine 75400276 Z23 Needs infl uenza immunization 423786584 Z23 done at work Dependence on continuous positive airway pressure ventilation 433117858 Z99.89 Vitamin D deficiency 347 85141 E55.9 [id number] Chandler Brewer MD Main Office [address] [facility] [address] [place] [address] 04/18/2025 13:00:20 04/18/2025 13:53:35 Chest pain 24364921 R07.89 [id number] Does not appear to be cardiac but given the possibly ischemia seen on her EKG will get a stress test to look for ischemia. Anterior c hest wall pain 563324577 R07.89 [id number] Carries a bag on the left side of her chest. Advised regular NSAIDs. Health Concerns Section Related Observation LastModified by Organization Berylai ls LastModified Time None Recorded Concern Status LastModified by Organization Details LastModified Time None Recorded Payers Encounter Date Sequence Insurance Name Policy Number Policy Sharma Covered Member ID Sharma Member ID Guarantor Name 04/18/2025 1 [facility] [place] [id number] 1 Adry Lorenzo [id number] Adry oLrenzo Notes Date Note Type Note Provider Name and Address Organization Details Recorded Time 04/18/2025 text/html She has been having intermittent chest pain not related to activity. It often occurs when she is seated watching TV and occurs for only a brief period. She denies any radiation. She was a cigarette smoker and quit more than 15 years ago. She is not treated for HTN and has a minimally-elevated cholesterol with a high HDL of 94. She denies SOB. Chandler Brewer MD [address] [address], [place], [address], [facility] 04/19/2025 09:25:25 OBGyn Episode No OBEpisode recorded.
--- OUTSIDE RECORDS SUMMARY | 2025-05-17 20:30 | XMS_ITS | Clinical Summary ---
Author Organization [facility] Facility Address [address] [address] Care Team Providers Care Junior Programmer Analyst Name Role Phone Shelly Vega MD Primary [...] spray Rhinocort Aqua 32 mcg/actuation nasal spray [place] 2sprays each nostril daily Active citalopram (CeleXA) [...] mouth 1 (one) time each day Active fluticasone-wilma meterol (Wixela Inhub) 250-50 MCG/DOSE diskus inhaler [...] obesity 07/06/2018 Dysfunctional uterine bleeding 08/26/2002 Immunizations Immunization Administration Dates Next Due Influenza (IM) Preservative [...] Last Done Comments Breast Cancer Screening 1970 Hepatitis B Vaccine (1 of 3 - 19+ 3-dose series) 1989 Pneumococcal Vaccine: 50+ Ye ars (1 of 2 - PCV) 1989 Colorectal Cancer Screening: Annual FOBT 2019 Colorectal Cancer Screening: Colonoscopy 2019 Colorectal Cancer Screening: Sigmoidoscopy 2019 Influenza Vaccine (#1) 2025 0, 04/06/2019, 04/16/2018, Additional history exists Care Teams Junior Programmer Analyst Relationship Specialty Start Date End Date Shelly Vega MD [address] PCP - General Internal Medicine 10/08/20
--- OUTSIDE RECORDS SUMMARY | 2025-05-17 20:30 | XMS_ITS | Data Portability ---
Author Organization [facility], Main Office Address [address] [place] [address] Care Team Providers Care Resource Economist Name Role Phone DINORA MUNOZ Office Manager SHAYY REMY Telephone Diaphragm Assembler [phone] JOIE HODGE Orthopedic Surgeon [facility] Vascular Surgeon [phone] YAMINI BARNEY Fruit Buyer MIGUEL BUSCH Head Of Digital Advertising & Integration DARYL ROBLES Manager Quantitative JERRY JAY Primary Care Provider [phone] PRIYANKA DOZIER Neuropsychiatrist ENRIQUETA CRUZ Golf Sales Associate RENNY LEDEZMA Still Worker Helper FIDELIA TILLMAN Hoe Worker Assessment Encounter Date Assessment Date Assessment LastModified by Organization Details LastModified Time 06/14/2024 06/14/2024 Discussed with patient the signs/symptom s warranted for a return to office visit and/or an ER visit. Patient understood and agreed with the plan. [email or web address] Not available 06/14/2024 15:27:37 Plan of Treatment Reminders Order Date Submit Date Provider Last Modified By Organization Details Last Modified Time Details Appointments None record ed. Lab vitami n D, 25-hyd carina, total, serum 2024 025 NANCY [facility], [address] [place], [address], 13:34:58 HbA1c (hemog lobin A1c), blood 2024 NANCY [facility], [address], [address], [place], [address], 13:34:57 magnes ium, serum or plasma 2024 NANCY [facility] (Centralized Electronic Ordering - All Locations), Patient Can Go To The Location Of Their Choice, 13:34:57 lipid panel, serum 2024 NANCY [facility] (Centralized Electronic Ordering - All Locations), Patient Can Go To The Location Of Their Choice, 13:34:57 TSH, ultra- sensit favian, serum 2024 NANCY [facility] (Centralized Electronic Ordering - All Locations), Patient Can Go To The Location Of Their Choice, 13:34:58 CBC w/ auto diff 2024 NANCY [facility] (Centralized Electronic Ordering - All Locations), Patient Can Go To The Location Of Their Choice, 13:34:58 CMP, serum or plasma 2024 NANCY [facility] (Centralized Electronic Ordering - All Locations), Patient Can Go To The Location Of Their Choice, 13:34:58 HbA1c (hemog lobin A1c), blood 2023 NANCY [facility], [address], [address], [place], [address], 4 06:08:32 lipid panel, serum 2023 NANCY [facility] (Centralized Electronic Ordering - All Locations), Patient Can Go To The Location Of Their Choice, [id number] 4 06:08:32 TSH, ultra- sensit favian, serum 2023 NANCY [facility] (Centralized Electronic Ordering - All Locations), Patient Can Go To The Location Of Their Choice, [address] 06:08:33 CMP, serum or plasma 2023 NANCY [facility] (Centralized Electronic Ordering - All Locations), Patient Can Go To The Location Of Their Choice, [address] 06:08:31 CBC w/ auto diff 2023 NANCY [facility] (Centralized Electronic Ordering - All Locations), Patient Can Go To The Location Of Their Choice, [address] 06:08:30 Referral None record ed. Procedures None record ed. Surgeries None record ed. Imaging exerci se stress test - Chest discom fort and EKG jose jha on of possib le ischem ia. R/o ischem ia. 2024 [email or web address] [facility] (Outt Non-Invasive Cardiology Scheduling), [address] [place] [address], [address], 11:33:54 electr ocardi ogram 2024 AMELIA In-Office Order, Internal Use Only DO Not Attach Compendium DO Not Attach Compendium, Do Not Delete/merge, [id number] 09:20:20 Medication Orders amoxic illin 875 mg-pot assium clavul anate 125 mg tablet 2024 025 AMELIA [id number], [address], [place], [address], 5 05:01:21 predni sone 20 mg tablet 2023 025 adolph [id number], [address], [place], [address], 5 13:09:47 Patient TargetsNo targets recorded. Patient Instructions Encounter Date Encounter Id Patient Instructions Last Modified By Organization Details Last Modified Time 04/04/2024 [id number] Starting a Weight-Loss Plan: Care Instructions [email or web address] Not available 04/04/2024 15:08:10 sleep apnea: care instructions ckokar Not available 04/04/2024 15:08:10 11/28/2024 [id number] allergies: care instructions Not available 11/28/2024 10:25:27 Acute Sinusitis: Care Instructions Not available 11/28/2024 09:37:09 saline nasal washes: care instructions Not available 11/28/2024 10:25:26 04/10/2025 [id number] Starting a Weight-Loss Plan: Care Instructions [email or web address] Not available 04/10/2025 13:34:40 sleep apnea: care instructions ckokar Not available 04/10/2025 13:34:40 Discussed with patient the signs/symptoms warranted for a return to office visit and/or an ER visit. Patient understood and agreed with the plan. [email or web address] Not available 04/10/2025 13:40:28 04/18/2025 [id number] chest pain: care instructions [email or web address] Not available 04/18/2025 13:49:13 costochondritis: care instructions acennerazzo Not available 04/18/2025 13:49:28 Reason for Referral None Reported. Results Created Date Observation Date Name Description Value Unit Range Abnormal Flag Note LastModifiedBy Organization Detail LastModifiedTime 04/27/2004/28/2024 CBC WITH DIFFE RENTI AL/PL ATELE T WBC 6.5 x10e3 /uL 3.4-10 .8 normal Not Available [facility] ([facility]) [address] [place], [address], 04/28/2024 06:08:30 04/27/2004/28/2024 CBC WITH DIFFE RENTI AL/PL ATELE T RBC 4.64 x10e6 /uL 3.77-5 .28 normal Not Available [facility] ([facility]) [address] [place], [address], 04/28/2024 06:08:30 04/27/20 24 04/28/2024 CBC WITH DIFFE RENTI AL/PL ATELE T hemoglobin 13.3 g/dL 11.1-1 5.9 normal Not Available [facility] ([facility]) [address] [place], [address], 04/28/2024 06:08:30 04/27/20 24 04/28/2024 CBC WITH DIFFE RENTI AL/PL ATELE T hematocrit 40.9 % 34.0-4 6.6 normal Not Available [facility] ([facility]) [address] [place], [address], 04/28/2024 06:08:30 04/27/2004/28/2024 CBC WITH DIFFE RENTI AL/PL ATELE T MCV 88 fL 79-97 normal Not Available [facility] ([facility]) [address] [place], [address], 04/28/2024 06:08:30 04/27/2004/28/2024 CBC WITH DIFFE RENTI AL/PL ATELE T MCH 28.7 pg 26.6-3 3.0 normal Not Available [facility] ([facility]) [address] [place], [address], 04/28/2024 06:08:30 04/27/20 24 04/28/2024 CBC WITH DIFFE RENTI AL/PL ATELE T MCHC 32.5 g/dL 31.5-3 5.7 normal Not Available [facility] ([facility]) [address] [place], [address], 04/28/2024 06:08:30 04/27/2004/28/2024 CBC WITH DIFFE RENTI AL/PL ATELE T RDW 12.9 % 11.7-1 5.4 Not Available [facility] ([facility]) [address] [place], [address], 04/28/2024 06:08:30 04/27/20 24 04/28/2024 CBC WITH DIFFE RENTI AL/PL ATELE T platelets 263 x10e3 /uL 150-45 0 normal Not Available [facility] ([facility]) [address] [facility], [place], [address], 04/28/2024 06:08:30 04/27/20 24 04/28/2024 CBC WITH DIFFE RENTI AL/PL ATELE T neutrophils 60 % not estab. normal Not Available [facility] ([facility]) [address] [facility], [place], [address], 04/28/2024 06:08:30 04/27/20 24 04/28/2024 CBC WITH DIFFE RENTI AL/PL ATELE T lymphs 28 % not estab. normal Not Available [facility] ([facility]) [address] [facility], [place], [address], 04/28/2024 06:08:30 04/27/20 24 04/28/2024 CBC WITH DIFFE RENTI AL/PL ATELE T monocytes 7 % not estab. normal Not Available [facility] ([facility]) [address] [facility], [place], [address], 04/28/2024 06:08:30 04/27/20 24 04/28/2024 CBC WITH DIFFE RENTI AL/PL ATELE T eos 4 % not estab. normal Not Available [facility] ([facility]) [address] [facility], [place], [address], 04/28/2024 06:08:30 04/27/20 24 04/28/2024 CBC WITH DIFFE RENTI AL/PL ATELE T basos 1 % not estab. normal Not Available [facility] ([facility]) [address] [facility], [place], [address], 04/28/2024 06:08:30 04/27/20 24 04/28/2024 CBC WITH DIFFE RENTI AL/PL ATELE T immature cells NAPPER RUNNER Not Available [facility] ([facility]) [address] [place], [address], 04/28/2024 06:08:30 04/27/20 24 04/28/2024 CBC WITH DIFFE RENTI AL/PL ATELE T neutrophils (absolute) 3.9 x10e3 /uL 1.4-7. 0 normal Not Available [facility] ([facility]) [address] [facility], [place], [address], 04/28/2024 06:08:30 04/27/2004/28/2024 CBC WITH DIFFE RENTI AL/PL ATELE T lymphs (absolute) 1.8 x10e3 /uL 0.7-3. 1 normal Not Available [facility] ([facility]) [address] [place], [address], 04/28/2024 06:08:30 04/27/20 24 04/28/2024 CBC WITH DIFFE RENTI AL/PL ATELE T monocytes(ab solute) 0.4 x10e3 /uL 0.1-0. 9 normal Not Available [facility] ([facility]) [address] [place], [address], 04/28/2024 06:08:30 04/27/20 24 04/28/2024 CBC WITH DIFFE RENTI AL/PL ATELE T eos (absolute) 0.2 x10e3 /uL 0.0-0. 4 normal Not Available [facility] ([facility]) [address] [place], [address], 04/28/2024 06:08:30 04/27/20 24 04/28/2024 CBC WITH DIFFE RENTI AL/PL ATELE T baso (absolute) 0.1 x10e3 /uL 0.0-0. 2 normal Not Available [facility] ([facility]) [address] [place], [address], 04/28/2024 06:08:30 04/27/20 24 04/28/2024 CBC WITH DIFFE RENTI AL/PL ATELE T immature granulocytes 0 % not estab. Not Available [facility] ([facility]) [address] [facility], [place], [address], 04/28/2024 06:08:30 04/27/20 24 04/28/2024 CBC WITH DIFFE RENTI AL/PL ATELE T immature grans (abs) 0.0 x10e3 /uL 0.0-0. 1 Not Available [facility] ([facility]) [address] [facility], [place], [address], 04/28/2024 06:08:30 04/27/20 24 04/28/2024 CBC WITH DIFFE RENTI AL/PL ATELE T NRBC NAPPER RUNNER Not Available [facility] ([facility]) [address] [facility], [place], [address], 04/28/2024 06:08:30 04/27/20 24 04/28/2024 CBC WITH DIFFE RENTI AL/PL ATELE T hematology comments: NAPPER RUNNER Not Available [facility] ([facility]) [address] [facility], [place], [address], 04/28/2024 06:08:30 04/27/20 24 04/28/2024 COMP. METAB OLIC PANEL (14) glucose 122 mg/dL 70-99 above high normal Not Available [facility] ([facility]) [address] [facility], [place], [address], 04/28/2024 06:08:31 04/27/20 24 04/28/2024 COMP. METAB OLIC PANEL (14) BUN 13 mg/dL 6-24 normal Not Available [facility] ([facility]) [address] [place], [address], 04/28/2024 06:08:31 04/27/20 24 04/28/2024 COMP. METAB OLIC PANEL (14) creatinine 0.83 mg/dL 0.57-1 .00 normal Not Available [facility] ([facility]) [address] [facility] [place], [address], 04/28/2024 06:08:31 04/27/20 24 04/28/2024 COMP. METAB OLIC PANEL (14) eGFR 84 mL/mi n/1.7 3 >59 normal Not Available [facility] ([facility]) [address] [place], [id number], 04/28/2024 06:08:31 04/27/20 24 04/28/2024 COMP. METAB OLIC PANEL (14) BUN/creatini ne ratio 16 9-23 normal Not Available [facility] ([facility]) [address] [place], [id number], 04/28/2024 06:08:31 04/27/20 24 04/28/2024 COMP. METAB OLIC PANEL (14) sodium 138 mmol/ L 134-14 4 normal Not Available [facility] ([facility]) [address] [place], [id number], 04/28/2024 06:08:31 04/27/20 24 04/28/2024 COMP. METAB OLIC PANEL (14) potassium 3.9 mmol/ L 3.5-5. 2 normal Not Available [facility] ([facility]) [address] [place], [id number], 04/28/2024 06:08:31 04/27/20 24 04/28/2024 COMP. METAB OLIC PANEL (14) chloride 105 mmol/ L 96-106 normal Not Available [facility] ([facility]) [address] [place], [id number], 04/28/2024 06:08:31 04/27/20 24 04/28/2024 COMP. METAB OLIC PANEL (14) carbon dioxide, total 16 mmol/ L 20-29 below low normal Not Available [facility] ([facility]) [address] [place], [id number], 04/28/2024 06:08:31 04/27/20 24 04/28/2024 COMP. METAB OLIC PANEL (14) calcium 9.2 mg/dL 8.7-10 .2 normal Not Available [facility] ([facility]) [address] [place], [id number], 04/28/2024 06:08:31 04/27/20 24 04/28/2024 COMP. METAB OLIC PANEL (14) protein, total 6.9 g/dL 6.0-8. 5 normal Not Available [facility] ([facility]) [address] [place], [id number], 04/28/2024 06:08:31 04/27/20 24 04/28/2024 COMP. METAB OLIC PANEL (14) albumin 4.0 g/dL 3.8-4. 9 normal Not Available [facility] ([facility]) [address] [place], [id number], 04/28/2024 06:08:31 04/27/20 24 04/28/2024 COMP. METAB OLIC PANEL (14) globulin, total 2.9 g/dL 1.5-4. 5 Not Available [facility] ([facility]) [address] [place], [id number], 04/28/2024 06:08:31 04/27/20 24 04/28/2024 COMP. METAB OLIC PANEL (14) bilirubin, total 0.2 mg/dL 0.0-1. 2 normal Not Available [facility] ([facility]) [address] [place], [id number], 04/28/2024 06:08:31 04/27/20 24 04/28/2024 COMP. METAB OLIC PANEL (14) alkaline phosphatase 100 IU/L 44-121 normal Not Available [facility] ([facility]) [address] [place], [id number], 04/28/2024 06:08:31 04/27/20 24 04/28/2024 COMP. METAB OLIC PANEL (14) AST (SGOT) 14 IU/L 0-40 normal Not Available [facility] ([facility]) [address] [facility] [place], [address], 04/28/2024 06:08:31 04/27/20 24 04/28/2024 COMP. METAB OLIC PANEL (14) ALT (SGPT) 19 IU/L 0-32 normal Not Available [facility] ([facility]) [address] [facility] [place], [address], 04/28/2024 06:08:31 04/27/2004/28/2024 LIPID PANEL cholesterol, total 232 mg/dL 100-19 9 above high normal Not Available [facility] ([facility]) [address] [facility] [place], [address], 04/28/2024 06:08:31 04/27/20 24 04/28/2024 LIPID PANEL triglyceride s 109 mg/dL 0-149 normal Not Available [facility] ([facility]) [address] [facility] [place], [address], 04/28/2024 06:08:31 04/27/20 24 04/28/2024 LIPID PANEL HDL cholesterol 94 mg/dL >39 normal Not Available [facility] ([facility]) [address] [facility] [place], [address], 04/28/2024 06:08:31 04/27/2004/28/2024 LIPID PANEL VLDL cholesterol carter 19 mg/dL 5-40 Not Available [facility] ([facility]) [address] [facility] [place], [address], 04/28/2024 06:08:31 04/27/2004/28/2024 LIPID PANEL LDL chol calc ([facility]) 119 mg/dL 0-99 above high normal Not Available [facility] ([facility]) [address] [facility] [place], [address], 04/28/2024 06:08:31 04/27/20 24 04/28/2024 LIPID PANEL LDL calc comment: NAPPER RUNNER Not Available [facility] ([facility]) [address] [facility], [place], [address], 04/28/2024 06:08:31 04/27/20 24 04/28/2024 HEMOG LOBIN A1C hemoglobin A1C 6.0 % 4.8-5. 6 above high normal Predi abete s: 5.7 - 6.4 Diabe anastacia: >6.4 Glyce kym contr ol for adult s with diabe anastacia: <7.0 Not Available [facility] ([facility]) [address] [facility], [place], [address], 04/28/2024 06:08:32 04/27/20 24 04/28/2024 TSH RFX ON ABNOR MAL TO FREE T4 TSH 1.550 uIU/m L 0.450- 4.500 normal Not Available [facility] ([facility]) [address] [facility], [place], [address], 04/28/2024 06:08:33 10/27/19 25 10/25/2024 MAMMO , scree tracey, digit al, bilat eral PROCED URE: MM Digita l Mammo Screen ing INDICA TION: Screen ing for breast cancer . No known palpab le abnorm alitie s. COMPAR JUSTINE: Back to 022. TECHNI QUE:Fu ll-fie ld digita l CC and MLO 3D tomosy nthesi s images of both breast s were acquir ed. Comput er-aid ed detect ion (CAD) was utiliz ed in the interp retati on of this study. DENSIT Y: There are scatte red areas of fibrog landul ar densit y. FINDIN GS: No suspic ious masses , microc alcifi cation s, areas of celsa ectura l distor tion, or skin thicke tracey to sugges t malign ferny. IMPRES LORNE: No mammog raphic eviden ce of malign ferny. RECOMM ENDATI ON: Annual mammog raphic screen ing. BI-RAD S: 1 (Negat favian) Lay letter mailed to carlos gilliland WSN: [id number] Orderi ng Physic juancho: Maral Jay Dictat ed By: Hermann Morris MD Dictat ed Date/T ryan: 4:08 pm Review ed By: Hermann Morris MD Signed By: Hermann Morris MD Signed Date/T ryan: 4:08 pm Transc ribed By: CSB Transc riptio n Date/T ryan: 4:06 pm Birads : Carlos gilliland Class: Outpat ient [email or web address] [facility] (Outpt Imaging) [address] [facility] [address] [facility], [place], [address], 10/27/2024 14:53:02 10/27/19 25 10/26/2024 MAMMO , scree tracey, digit al, bilat eral No observ ation record ed. [facility] [address] [facility] [facility] [address], [place], [address], 10/29/2024 09:55:12 04/18/20 elect rocar diogr am No observ ation record ed. [email or web address] In-Office Order Internal Use Only DO Not Attach Compendium DO Not Attach Compendium, Do Not Delete/merge, [id number] 04/18/2025 18:02:36 04/19/20 25 04/19/2025 elect rocar diogr am No observ ation record ed. [email or web address] In-Office Order Internal Use Only DO Not Attach Compendium DO Not Attach Compendium, Do Not Delete/merge, [id number] 04/19/2025 09:25:42 Result Notes Documentation Provider Name and Address Organization Details Recorded Time Mammo, Screening, Digital, Bilateral : PROCEDURE: MM Digital Mammo Screening INDICATION: Screening for breast cancer. No known palpable abnormalities. COMPARISON: Back to 10/17/2021. TECHNIQUE:Full-field digital CC and MLO 3D tomosynthesis images of both breasts were acquired. Computer-aided detection (CAD) was utilized in the interpretation of this study. DENSITY: There are scattered areas of fibroglandular density. FINDINGS: No suspicious masses, microcalcifications, areas of architectural distortion, or skin thickening to suggest malignancy. IMPRESSION: No mammographic evidence of malignancy. RECOMMENDATION: Annual mammographic screening. BI-RADS: 1 (Negative) Lay letter mailed to patient WSN: [id number] Ordering Physician: Jerry Jay Dictated By: Brain Aguilar MD Dictated Date/Time: 10/26/24 4:08 pm Reviewed By: Brain Aguilar MD Signed By: Brain Aguilar MD Signed Date/Time: 10/26/24 4:08 pm Transcribed By: EDUARDA Investigation Division Sergeant Date/Time: 10/26/24 4:06 pm Birads: Patient Class: Outpatient Lisa Corea mayra [facility] 10/27/2024 14:53:02 Problems Name Problem SNOMED Code Status Onset Date Resolution Date Notes Provider Name and Address Organization Details Recorded Time Acne 21505559 Completed 05/27/2017 Cesar nunez [facility] 7 13:38:54 Acute pharyngi tis 028284108 Com[place] 05[place]27/2017 [place] 7 11:46:49 Allergic rhinitis 32546709 Active Not Available [facility] 3 11:37:50 Anxiety state 572320964 Active Not Available [facility] 3 11:37:50 Malaise and fatigue 439712376 Completed 05/27/2017 Cesar nunez [facility] 7 13:38:33 Gastroes ophageal reflux disease 116103065 Active Not Available [facility] 3 11:37:50 Irritabl e bowel syndrome 11130469 Active Not Available [facility] 3 11:37:50 Palpitat ions 26943726 Completed 05/27/2017 Cesar nunez [facility] 7 13:38:45 Tobacco user 373106615 Completed 07/08/2015 Demetrice Rome PA-C [address], [place], [address] , [facility] 6 10:10:41 History of clinical finding in subject 518641797 Completed 07/09/2015 Demetrice Rome PA-C [address], [place], [address] , [facility] 6 10:10:41 Chronic sinusiti s 98615305 Completed 05/27/2017 Cesar nunez [facility] 7 13:38:40 Tobacco dependen ce syndrome 31385694 Completed 05/27/2017 Quit 2008 RITA Montiel [facility] 7 11:47:30 Acute upper respirat ory infectio n 74731352 Completed 05/27/2017 RITA Montiel [facility] 7 11:46:53 Left flank pain 420276708 Com[place]27/2017 [place] 7 11:46:36 Pyelonep hritis 26121462 Completed 05/27/2017 [facility] 7 11:47:21 Migraine 19353914 Active Not Available [facility] 3 11:37:50 Sleep apnea 32480569 Completed 07/09/2015 Demetrice Rome PA-C [address], [place], [address] , [facility] 6 10:10:41 Body mass index 30+ - obesity 614783960 Completed 07/06/2018 Removal Reason: BMI increase d Jolie Estradajoe nunez [facility] 9 10:16:54 Acute sinusiti s 19020339 Completed 05/27/2017 RITA Montiel [facility] 7 11:46:29 Obstruct favian sleep apnea syndrome 53352324 Active on CPAP Jerry Jay MD [address], [place], [address] , [facility] 5 20:00:47 Impaired fasting glycemia 560450552 Completed 05/27/2017 RITA Montiel, [facility] 7 11:47:01 Uncontro lled type 2 diabetes mellitus 685597140 Completed 05/27/2017 A1C was 6.1; diet-con trolled RITA Montiel, [facility] 7 11:47:16 Diabetes mellitus 87193689 Completed 05/27/2017 RITA Montiel, [facility] 7 13:01:55 Impaired glucose toleranc e 7448422 Completed 04/03/2024 Jerry Jay MD [address], [place], [address] , [facility] 4 17:33:08 Morbid obesity 363569949 Completed 05/27/2017 RITA Montiel, [facility] 7 11:47:45 Depressi ve disorder 11008164 Completed 05/27/2017 Cesar nunez [facility] 9 16:38:20 Suspecte d COVID-19 105326708 Completed 01/29/2021 Removal Reason: Problem added by user [email or web address] from the COVID-19 watch flag Winnie Ulloa mayra, [facility] 1 10:02:17 Dysfunct ional uterine bleeding Completed 200203/29/2023 Jerry Jay MD [address], [place], [address] , [facility] 3 09:15:48 Carpal tunnel syndrome 11931186 Completed 200305/27/2017 Had surgery RITA Montiel, [facility] 7 11:47:24 Acute frontal sinusiti s 25861008 Completed 200801/09/2014 RECORDED 02/07/20 09 8:16AM BY ENA MERCADOATI ON/ADDEN DUM Demetrice Rome PA-C [address] [facility], [place], [address] , [facility] 6 10:10:41 Allergic rhinitis 68297068 Completed 200801/09/2014 IMPRESSI ON: WILL TAKE OTC ZYRTEC AND NASAL SPRAY, STOP BENADRYL ; RECORDED 02/07/20 09 8:16AM BY CHAGO MERCADO ON/ADDEN DUM Demetrice Rome PA-C [address] [facility] [address], [place], [address] , [facility] 6 10:10:41 Ulcerati ve rhinitis 77813183 Completed 200801/09/2014 RECORDED 02/07/20 09 8:16AM BY CHAGO MERCADO ON/ADDEN DUM Demetrice archify PA-C [address] [facility] [address], [place], [address] , [facility] 6 10:10:41 Candidal vulvovag initis 23045649 Completed 200801/09/2014 IMPRESSI ON: TX FOR YEAST VAGINITI S; RECORDED 02/07/20 09 8:16AM BY CHAGO MERCADO ON/ADDEN DUM Demetirce Rome PA-C [address] [facility] [address], [place], [address] , [facility] 6 10:10:41 Acute frontal sinusiti s [id number] Completed 200802/05/2014 RECORDED 02/07/20 09 8:16AM BY CHAGO MERCADO ON/ADDEN DUM Demetrice Rome PA-C [address] [facility] [address] [facility], [place], [address] , [facility] 6 10:10:41 Ulcerati ve rhinitis [id number] Completed 200802/05/2014 RECORDED 02/07/20 09 8:16AM BY RITA STANTON, ENAATI ON/ADDEN DUM Demetrice LYMAN-C [address], [place], [address] , [facility] 6 10:10:41 Candidal vulvovag initis [id number] Completed 200802/05/2014 IMPRESSI ON: TX FOR YEAST VAGINITI S; RECORDED 02/07/20 09 8:16AM BY RITA STANTON, CHAGO ON/ADDEN DUM Demetrice LYMAN-C [address] [facility] [address], [place], [address] , [facility] 6 10:10:41 Screenin g for malignan t neoplasm of breast Completed 200901/09/2014 RECORDED 06/11/20 10 2:13PM BY MARILYN COVARRUBIAS, OFFICE VISIT Demetrice WHITTAKER [address] [facility] [address], [place], [address] , [facility] 6 10:10:42 Screenin g for malignan t neoplasm of breast Completed 200902/05/2014 RECORDED 06/11/20 10 2:13PM BY MARILYN COVARRUBIAS, OFFICE VISIT Demetrice Rome PA-C [address] [facility] [address], [place], [address] , [facility] 6 10:10:42 Influenz a vaccine needed [id number] 06 Completed 200901/09/2014 RECORDED 06/24/20 10 12:51PM BY MARILYN COVARRUBIAS, HISTORIC AL SUMMARY Demetrice WHITTAKERC [address] [facility] [address], [place], [address] , [facility] 6 10:10:41 Influenz a vaccine needed [id number] 06 Completed 200902/05/2014 RECORDED 06/24/20 10 12:51PM BY MARILYN COVARRUBIAS, HISTORIC AL SUMMARY Demetrice LYMAN-C [address] [facility] [address], [place], [address] , [facility] 6 10:10:41 Amenorrh ea [id number] Completed 201101/09/2014 RECORDED 03/02/20 12 1:19PM BY CHAGO MONTIEL ON/ADDEN DUM Demetrice Wild PA-C [address] [facility] [address], [place], [address] , [facility] 6 10:10:41 Urinary tract infectio us disease 65435633 Completed 201101/09/2014 RECORDED 03/02/20 12 1:19PM BY CHAGO MONTIEL ON/ADDEN DUM Demetrice LYMAN-C [address] [facility] [address], [place], [address] , [facility] 6 10:10:41 Vaginiti s and vulvovag initis Completed 201101/09/2014 IMPRESSI ON: + GARDNERE LLA, SYMPTOMA TIC; RECORDED 03/02/20 12 1:20PM BY CHAGO MONTIEL ON/ADDEN DUM Demetrice Wild LYMAN-C [address] [facility] [address], [place], [address] , [facility] 6 10:10:41 Exposure to organism Completed 201101/09/2014 RECORDED 03/02/20 12 1:19PM BY CHAGO MONTIEL ON/ADDEN DUM Demetrice Widl LYMAN-C [address] [facility] [address], [place], [address] , [facility] 6 10:10:41 Cough 36442557 Completed 201101/09/2014 IMPRESSI ON: APPEARS VIRAL; RECORDED 03/02/20 12 1:20PM BY CHAGO MONTIEL ON/ADDEN DUM Demetrice Rome PA-C [address], [place], [address] , [facility] 6 10:10:41 Dysphagi a [id number] Completed 201101/09/2014 RECORDED 03/02/20 12 1:20PM BY CHAGO MONTIEL ON/ADDEN DUM Demetrice Rome PA-C [address], [place], [address] , [facility] 6 10:10:41 Abdomina l pain 56209037 Completed 201101/09/2014 IMPRESSI ON: X 1 DAY. [...] [address], [place], [address] , [facility] 6 10:10:41 Well child 342075853 Completed 201101/09/2014 RECORDED 03/02/20 12 1:20PM BY CHAGO MONTIEL ON/MARELY DUM Demetrice Rome PA-C [address], [place], [address] , [facility] 6 10:10:42 Headache 10987038 Completed 201101/09/2014 RECORDED 03/02/20 12 1:20PM BY CHAGO MONTIEL ON/ADDEN DUM Demetrice Rome PA-C [address], [place], [address] , [facility] 6 10:10:41 Breast lump [id number] Completed 201101/09/2014 RECORDED 03/02/20 12 1:20PM BY CHAGO MONTIEL ON/ADDEN DUM Demetrice Rome PA-C [address], [place], [address] , [facility] 6 10:10:41 Eruption [id number] Completed 201101/09/2014 IMPRESSI ON: SUSPECT SECONDAR Y TO STREP THROAT INFECTIO N. DOES NOT APPEAR TO BE SCARLET FEVER THOUGH; RECORDED 03/02/20 12 1:19PM BY CHAGO MONTIEL ON/ADDEN DUM Demetrice Rome PA-C [address], [place], [address] , [facility] 6 10:10:41 Screenin g for malignan t neoplasm of colon Completed 201101/09/2014 RECORDED 03/02/20 12 1:19PM BY CHAGO MONTIEL ON/ADDEN DUM Demetrice archify PA-C [address], [place], [address] , [facility] 6 10:10:42 Streptoc occal sore throat 43635685 Completed 201101/09/2014 IMPRESSI ON: + RAPID STREP, 3RD EPISODE OF STREP IN 3 MONTHS; RECORDED 03/02/20 12 1:19PM BY CHAGO MOTNIEL ON/ADDEN DUM Demetrice archify PA-C [address], [place], [address] , [facility] 6 10:10:41 Infectio n by Trichomo yimi [id number] Completed 201101/09/2014 RECORDED 03/02/20 12 1:20PM BY CHAGO MONTIEL ON/ADDEN DUM Demetrice archify PA-C [address], [place], [address] , [facility] 6 10:10:41 Pruritus of genital organs 972361235 Completed 201101/09/2014 RECORDED 03/02/20 12 1:20PM BY CHAGO MONTIEL ON/ADDEN DUM Demetrice Rome PA-C [address] [facility] [address], [place], [address] , [facility] 6 10:10:41 Viral disease 54726355 Completed 201101/09/2014 RECORDED 03/02/20 12 1:19PM BY CHAGO MONTIEL ON/ADDEN DUM Demetrice Rome PA-C [address] [facility] [address], [place], [address] , [facility] 6 10:10:41 Amenorrh ea 26681408 Completed 201102/05/2014 RECORDED 03/02/20 12 1:19PM BY CHAGO MNOTIEL ON/ADDEN DUM Demetrice Rome PA-C [address] [facility] [address], [place], [address] , [facility] 6 10:10:41 Urinary tract infectio us disease 28334305 Completed 201102/05/2014 RECORDED 03/02/20 12 1:19PM BY CHAGO MONTIEL ON/ADDEN DUM Demetrice Rome PA-C [address] [facility] [address], [place], [address] , [facility] 6 10:10:41 Vaginiti s and vulvovag initis Completed 201102/05/2014 IMPRESSI ON: + GARDNERE LLA, SYMPTOMA TIC; RECORDED 03/02/20 12 1:20PM BY CHAGO MONTIEL ON/ADDEN DUM Demetrice Rome PA-C [address] [facility] [address], [place], [address] , [facility] 6 10:10:41 Exposure to organism Completed 201102/05/2014 RECORDED 03/02/20 12 1:19PM BY CHAGO MONTIEL ON/ADDEN DUM Demetrice Rome PA-C [address] [facility] [address], [place], [address] , [facility] 6 10:10:41 Cough [id number] Completed 201102/05/2014 IMPRESSI ON: APPEARS VIRAL; RECORDED 03/02/20 12 1:20PM BY CHAGO MONTIEL ON/ADDEN DUM Demetrice Rome PA-C [address], [place], [address] , [facility] 6 10:10:41 Dysphagi a [id number] Completed 201102/05/2014 RECORDED 03/02/20 12 1:20PM BY CHAGO MONTIEL ON/ADDEN DUM Demetrice Rome PA-C [address] [facility] [address], [place], [address] , [facility] 6 10:10:41 Abdomina l pain 65433206 Completed 201102/05/2014 IMPRESSI ON: X 1 DAY. NO URINARY SXS, F/C OR GI SXS, BLOOD MOST LIKELY SECONDAR Y TO MENSES. REST, WARM COMPRESS ES, PAIN MED PRN. TO MONITOR URINE AT HOME (PROVIDE D WITH STRAINER ) AND WE WILL ARRANGE FOR US TOMORROW . CONTACT US SOONER PRN.; RECORDED 03/02/20 12 1:19PM BY CHAGO MONTIEL ON/ADDEN DUM Demetrice Wild PA-C [address] [facility] [address], [place], [address] , [facility] 6 10:10:41 Well child [id number] Completed 201102/05/2014 RECORDED 03/02/20 12 1:20PM BY CHAGO MONTIEL ON/ADDEN DUM Demetrice Rome PA-C [address] [facility] [address], [place], [address] , [facility] 6 10:10:42 Headache 15155079 Completed 201102/05/2014 RECORDED 03/02/20 12 1:20PM BY CHAGO MONTIEL ON/ADDEN DUM Demetrice Rome PA-C [address], [place], [address] , [facility] 6 10:10:41 Breast lump [id number] Completed 201102/05/2014 RECORDED 03/02/20 12 1:20PM BY CHAGO MONTIEL ON/ADDEN DUM Demetrice Rome PA-C [address], [place], [address] , [facility] 6 10:10:41 Eruption [id number] Completed 201102/05/2014 IMPRESSI ON: SUSPECT SECONDAR Y TO STREP THROAT INFECTIO N. DOES NOT APPEAR TO BE SCARLET FEVER THOUGH; RECORDED 03/02/20 12 1:19PM BY CHAGO MONTIEL ON/ADDEN DUM Demetrice Rome PA-C [address], [place], [address] , [facility] 6 10:10:41 Screenin g for malignan t neoplasm of colon Completed 201102/05/2014 RECORDED 03/02/20 12 1:19PM BY CHAGO MONTIEL ON/ADDEN DUM Demetrice Rome PA-C [address], [place], [address] , [facility] 6 10:10:42 Streptoc occal sore throat 58017474 Completed 201102/05/2014 IMPRESSI ON: + RAPID STREP, 3RD EPISODE OF STREP IN 3 MONTHS; RECORDED 03/02/20 12 1:19PM BY CHAGO MONTIEL ON/ADDEN DUM Demetrice Rome PA-C [address], [place], [address] , [facility] 6 10:10:41 Infectio n by Surjit geller [id number] Completed 201102/05/2014 RECORDED 03/02/20 12 1:20PM BY CHAGO MONTIEL ON/ADDEN DUM Demetrice [facility] [address], [place], [address] , [facility] 6 10:10:41 Pruritus of genital organs 109236667 Completed 201102/05/2014 RECORDED 03/02/20 12 1:20PM BY CHAGO MONTIEL ON/ADDEN DUM Demetrice [facility] [address], [place], [address] , [facility] 6 10:10:41 Viral disease 45910603 Completed 201102/05/2014 RECORDED 03/02/20 12 1:19PM BY CHAGO MONTIEL ON/ADDEN DUM Demetrice [facility]- [address] [facility] [address], [place], [address] , [facility] 6 10:10:41 Acute sinusiti s 47499810 Completed 201201/09/2014 RECORDED 08/05/19 13 1:24AM BY AIDAN BARKER MA, ANNOTUMBERTO ON/ADDEN DUM Marilyn Covarrubias MA null, [facility] 7 11:46:29 Depressi ve disorder 62627331 Completed 201201/09/2014 RECORDED 08/05/19 13 1:24AM BY AIDAN BARKER MA, CHAGO ON/ADDEN DUM Cesar mcwilliams null, [facility] 9 16:38:20 Acute sinusiti s 87751165 Completed 201202/05/2014 RECORDED 08/05/19 13 1:24AM BY AIDAN BARKER MA ANNOTATI ON/ADDEN DUM Marilyn Covarrubias MA null, [facility] 7 11:46:29 Synoviti s/tenosy novitis - hand 152264767 Completed 201201/09/2014 RECORDED 09/06/19 13 9:01AM BY ELSIE YI MA, ANNOTATI ON/ADDEN DUM Demetrice Rome PA-C [address], [place], [address] , [facility] 6 10:10:41 Synoviti s/jorge schulteitis - hand 078938242 Completed 201202/05/2014 RECORDED 09/06/19 13 9:01AM BY ELSIE YI MA, ANNOTATI ON/ADDEN DUM Demetrice Rome PA-C [address], [place], [address] , [facility] 6 10:10:41 Adult health examinat ion Completed 201201/09/2014 IMPRESSI ON: PAP AND MAMMOGRA M UTD (HAS APPT FOR MAMMO). WILL START EXERCISI NG CHANGING EATING HABITS.; RECORDED 01/06/20 13 10:33AM BY CHAGO MONTIEL ON/ADDEN DUM Demetrice Wild PA-C [address], [place], [address] , [facility] 6 10:10:42 Adult health examinat ion Completed 201202/05/2014 IMPRESSI ON: PAP AND MAMMOGRA M UTD (HAS APPT FOR MAMMO). WILL START EXERCISI NG CHANGING EATING HABITS.; RECORDED 01/06/20 13 10:33AM BY CHAGO MONTIEL ON/ADDEN DUM Demetrice Wild PA-C [address], [place], [address] , [facility] 6 10:10:42 Examinat ion for suspecte d mental disorder Completed 201301/09/2014 RECORDED 07/11/19 14 8:51AM BY CHAGO ESPARZA ON/ADDEN DUM Demetrice Rome PA-C [address], [place], [address] , [facility] 6 10:10:42 Depressi ve disorder 90353556 Completed 201307/08/2015 Cesar nunez, [facility] 9 16:38:20 Malaise and fatigue 263461082 Completed 201301/09/2014 IMPRESSI ON: CHECK FASTING; RECORDED 07/11/19 14 8:51AM BY CHAGO ESPARZA ON/ADDEN DUM Cesar nunez [facility] 7 13:38:33 Pure hypercho lesterol emia 815075448 Completed 201301/09/2014 IMPRESSI ON: CHECK FASTING; RECORDED 07/11/19 14 8:51AM BY CHAGO ESPARZA ON/ADDEN DUM Demetricekayden LYMANVigiglobeC [address] [facility] [address] [facility], [place], [address] , [facility] 6 10:10:41 Migraine [id number] Completed 201301/09/2014 STORY: PT NEEDS RE-EVAL W/ PMD; RECORDED 07/11/19 14 8:50AM BY CHAGO ESPARZA ON/ADDEN DUM Demetrice LYMANVigiglobeC [address] [facility] [address], [place], [address] , [facility] 6 10:10:41 Administ ration of diphther ia, pertussi s, and tetanus vaccine Completed 201301/09/2014 RECORDED 07/11/19 14 8:51AM BY CHAGO ESPARZA ON/ADDEN DUM Demetrice LYMAN-C [address] [facility] [address], [place], [address] , [facility] 6 10:10:41 Acute upper respirat ory infectio n 04683656 Completed 201301/09/2014 IMPRESSI ON: BETTER, RESOLVIN G, WORK NOTE OK TO RETURN TO WORK; RECORDED 07/11/19 14 8:51AM BY CHAGO ESPARZA ON/ADDEN DUM RITA Montiel, [facility] 7 11:46:53 Examinat ion for suspecte d mental disorder Completed 201302/05/2014 RECORDED 07/11/19 14 8:51AM BY CHAGO ESPARZA ON/ADDEN DUM Demetrice Rome PA-C [address], [place], [address] , [facility] 6 10:10:42 Pure hypercho lesterol emia 054352513 Completed 201302/05/2014 IMPRESSI ON: CHECK FASTING; RECORDED 07/11/19 14 8:51AM BY CHAGO ESPARZA ON/ADDEN DUM Demetrice Rome PA-C [address] [facility] [address], [place], [address] , [facility] 6 10:10:41 Migraine 71015037 Completed 201302/05/2014 STORY: PT NEEDS RE-EVAL W/ PMD; RECORDED 07/11/19 14 8:50AM BY CHAGO ESPARZA ON/ADDEN DUM Demetrice Lessons Only-C [address] [facility] [address], [place], [address] , [facility] 6 10:10:41 Administ ration of diphther ia, pertussi s, and tetanus vaccine Completed 201302/05/2014 RECORDED 07/11/19 14 8:51AM BY CHAGO ESPARZA ON/ADDEN DUM Demetrice Rome PA-C [address], [place], [address] , [facility] 6 10:10:41 Acute upper respirat ory infectio n 27529688 Completed 201302/05/2014 IMPRESSI ON: BETTER, RESOLVIN G, WORK NOTE OK TO RETURN TO WORK; RECORDED 07/11/19 14 8:51AM BY CHAGO ESPARZA ON/ADDEN DUM RITA Montiel, [facility] 7 11:46:53 Severe obesity 00578143276 104 Active 2018 Not Available [facility] 3 11:37:50 Depressi ve disorder 99550331 Completed 201810/26/2018 Cesar BurrellMallory poppy null, [facility] 9 16:38:20 Deep venous thrombos is of upper extremit y 568622300 Completed 201803/29/2023 Resolved with 3 mos darrell Jay MD [address] [facility] [address], [place], [address] , [facility] 3 09:15:30 Chronic back pain 392535449 Active 2018 Follows PSSP. Jerry Jay MD [address], [address] , [facility] 3 09:14:50 Chronic vascular insuffic iency 26373053 Completed 201903/29/2023 Jerry Jay MD [address], [place], [address] , [facility] 3 09:13:49 Candidia sis of mouth 08139017 Completed 202003/29/2023 Jerry Jay MD [address], [address] , [facility] 3 09:14:09 History of deep vein thrombos is 447949882 Active 2022 Upper ext. on left side. s/p carpel tunnel. Jerry Jay MD [address], [address] , [facility] 3 09:15:28 Asthma 328453531 Active 2022 Jerry Jay MD [address], [address] , [facility] 3 09:17:38 Genital herpes simplex 97217697 Active 2022 Jerry Jay MD [address] [address], [place], [address] , [facility] 3 09:18:22 Chronic alcoholi sm in [facility] n 174118546 Active 2022 Jerry Jay MD [address] [address], [place], [address] , [facility] 3 09:20:45 Temporom andibula r joint disorder 37137035 Active 2022 Jerry Jay MD [address] [address], [place], [address] , [facility] 3 09:38:01 SARS-CoV -2 Completed 202304/03/2024 Jerry Jay MD [address] [address], [place], [address] , [facility] 4 17:33:15 Prediabe anastacia 123141047 Active 2023 Jerry Jay MD [address] [address], [place], [address] , [facility] 4 17:31:04 History of SARS-CoV -2 [id number] 8687270 Active 2023 Jerry Jay MD [address] [address], [place], [address] , [facility] 4 17:33:23 Dependen ce on continuo us positive airway pressure ventilat ion 334000267 Active 2023 Jerry Jay MD [address] [address], [place], [address] , [facility] 4 14:59:07 Ex-smoke r 7344295 Active 2023 Jerry Jay MD [address] [address], [facility] [place], [address] , [facility] 4 14:59:29 Problem Notes None recorded. Procedures Surgical History Date Name Laterality Status Provider Name and Address Organization Details Recorded Time 025 Most Recent Mammogram completed Lisa Corea [facility] 10/27/2024 14:52:55 025 Mammogram screening completed Lisa Corea [facility] 10/27/2024 14:52:39 024 Mammogram Diagnostic Bilateral completed Aidan Zurita MA [facility] 04/04/2024 14:43:06 023 Date of Last Pap Smear completed Mairlyn Covarrubias MA [facility] 03/29/2023 [...] Carpal tunnel surgery completed Aidan Zurita MA [facility] 06/01/2014 15:17:04 981 Anesth surgery of shoulder completed Aidan Zurita MA [facility] 06/01/2014 15:17:04 Imaging Results None recorded. Procedure Notes None recorded. Medical Equipment None Reported. Allergies Allergen ID Allergen Name Allergen Category Reaction Reaction Severity Criticality Documentation Date Start Date Code Code System Note Provider Name and Address Organization Details Recorded Time 78888 ricki extract food anaphylax is Not available Not available 05/23/2018 10977 32 RxNorm Marilyn Covarrubias MA mayra, [facility] 8 16:16:42 6073 Augmentin medicatio n other Not available Not available 01/09/20142013 52325 2 RxNorm Aidan Aileen cox RITA mayra, [facility] 4 15:07:34 6074 erythromy sabrina medicatio n vomiting Not available Not available 01/09/20142013 4053 RxNorm Aidan Aileen cox RITA mayra, [facility] 4 15:07:34 6075 tree nut food anaphylax is Not available Not available 01/09/20142013 ADOLPH STEVEN Mendezerica cox RITA mayra, [facility] 4 15:07:34 6076 pineapple allergeni c extract food,medi cation other Not available Not available 01/09/20142013 45852 5 RxNorm Aidan Aileen cox RITA mayra, [facility] 4 15:07:34 Medications Name Sig [...] 08/11 completed RECORDED 10/27/19 14 8:51AM BY SONA ENNIS PA-C, MEDICATI ON AUTO-HARMEET CTIVATIO N; Not Available Not Available Not Available Rhinocort Aqua 32 mcg/actua tion nasal spray [place] 2sprays each nostril daily 2014 active Not [...] 08/13 completed RECORDED 08/13/19 11 11:24AM BY SONA ENNIS PA-C, MEDICATI ON AUTO-HARMEET CTIVATIO N; [...] 2013 active RECORDED 07/19/19 14 1:15PM BY SONA ENNIS PA-C, PRESCRIP TION REFILL; Not Available [...] completed RECORDED 01/12/20 09 11:36AM BY RITA CHAPMNA, OFFICE VISIT; Not Available Not Available Not [...] RECORDED 01/23/20 11 12:11PM BY KASSI YI, PANFILOC, MEDICATI ON AUTO-HARMEET CTIVATIO N; Not Available [...] e 50 mcg/actua tion nasal spray,chaka pension [place] 2 sprays every day by intranas al [...] 07/02/19 11 3:14PM BY CHAGO DE LA CRUZ/MARELY CHICAS; Not Available Not Available Not Available [...] 08/14 completed RECORDED 11/21/19 11 9:36AM BY SONA ENNIS PA-C, MEDICATI ON AUTO-HARMEET CTIVATIO N; [...] Not Available Not Available Not Available Fluzone 7654-3990 45 mcg (15 mcg x 3)/0.5 mL intramusc ular suspensio n active Not Available Not Available Not Available Nasacort 55 mcg nasal spray aerosol 2 sprays each nostril daily 05/23 completed Not Available Not Available Not Available Fluvirin 2246-8855 45 mcg (15 mcg x 3)/0.5 mL intramusc ular suspensio n active Not Available Not Available Not Available dicyclomi ne 10 mg tablet Take 1 tablet as needed by oral route for 90 days. active Not Available Not Available No t Available Fluvirin 5224-0572 45 mcg (15 mcg x 3)/0.5 mL [...] Details Last Updated DateTime 5 154.94 cm 45.3 kg/m2 845445. 17 g 84 /min 97 % 97.8 [degF] 106/70 mm[Hg] Callie santoyo MA [facility] 5 08:59:40 Date Recorded Body height Body mass index (BMI) Body weight Heart rate Oxygen saturation Body temperature Systolic And Diastolic Provider Name and Address Organization Details Last Updated DateTime 4 154.94 cm 45.5 kg/m2 205490. 04 g 88 /min 97 % 97.7 [degF] 103/68 mm[Hg] Aidan cox MA [facility] 4 14:39:31 Date Recorded Body height Body mass index (BMI) Body weight Heart rate Oxygen saturation Body temperature Systolic And Diastolic Provider Name and Address Organization Details Last Updated DateTime 5 154.94 cm 44.8 kg/m2 446448. 39 g 93 /min 97 % 97.6 [degF] 110/73 mm[Hg] Aidan cox MA [facility] 5 13:07:00 Date Recorded Body height Body mass index (BMI) Body weight Heart rate Oxygen saturation Body temperature Systolic And Diastolic Provider Name and Address Organization Details Last Updated DateTime 5 154.94 cm 45 kg/m2 780431. 08 g 90 /min 97 % 98.2 [degF] 101/66 mm[Hg] Sona Gabriel [facility] 5 13:13:04 Date Recorded Body height Body mass index (BMI) Body weight Heart rate Oxygen saturation Body temperature Systolic And Diastolic Provider Name and Address Organization Details Last Updated DateTime 4 154.94 cm 45.3 kg/m2 389773. 17 g 89 /min 96 % 98.1 [degF] 109/72 mm[Hg] Aidan cox MA [facility] 4 15:19:34 Social History Question Answer Notes LastModified by Organizat ion Details LastModified Time Tobacco Smoking Status Former Smoker RITA Trujillo [facility] 08/06/2020 15:44:18 Do You Have [...] Or Greater Than 100 Degrees Fahrenheit? No [email or web address] Information not available 07/13/2020 Are You Or Anyone In Your Household A Health Care Provider Or Emergency Responder? Yes [email or web address] Information not available 07/13/2020 To The Best Of Your Knowledge Have You Been In Close Proximity To Any Individual Who Tested Positive For COVID-19? No [email or web address] Information not available 07/13/2020 *AWV ONLY* Are You Presently Prescribed Opioid Medication By PCP Or Specialist? If YES -Provider Assess The Benefit For Other, Non-opioid Pain Therapies Instead, Even If The Patient Does Not Have OUD But Is Possibly At Risk. No Information not available 03/27/2022 Have You Recently Traveled To A [place] [address] High Risk Area Or Gathering In The Last 10 Days? 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 Never used electronic cigarettes Information not available 03/27/2022 What is your exercise level? Occasional walking Information not available 04/04/2024 Mental Status None recorded. Family History Relationship Description Onset Age of this Age Resolved Age Notes LastModified by Organization Details LastModified Time Mother Primary malignant neoplasm of rectum 60 [email or web address] Not available 03/27 15:40:43 Father Essential hypertension [email or web address] Not available 15:40:43 Father Hypercholest erolemia acennerazzo [...] virus, trivalent, preservative 9 completed RITA Montiel [facility] 03/29/2023 09:01:50 COVID-19, mRNA, LNP-S, PF, 100 mcg/0.5mL dose or 50 mcg/0.25mL dose 1 completed Kourtney nunez [facility] 03/02/2023 09:21:38 COVID-19, mRNA, LNP-S, PF, 100 mcg/0.5mL dose or 50 mcg/0.25mL dose 1 completed Kourtney nunez [facility] 03/02/2023 09:21:38 COVID-19, mRNA, LNP-S, PF, 100 mcg/0.5mL dose or 50 mcg/0.25mL dose 1 [place] 03/02/2023 09:21:38 Influenza, split virus, quadrivalent, PF 0 [place] [place] 03/02/2023 09:21:38 Influenza, split virus, trivalent, preservative 4 completed Kourtney nunez, [facility] 03/02/2023 09:21:38 Influenza, split virus, quadrivalent, PF 8 [place] [place] [place] 03/02/2023 09:21:38 Influenza, split virus, quadrivalent, PF 9 [place] [place] 03/02/2023 09:21:38 Influenza, split virus, quadrivalent, PF 1 [place] [place] 03/02/2023 09:21:38 Influenza, MDCK, quadrivalent, preservative 7 [place] 03/02/2023 09:21:38 Influenza, split virus, quadrivalent, preservative 2 [place] [place] [place] 03/02/2023 09:21:37 COVID-19, mRNA, LNP-S, bivalent, PF, 50 mcg/0.5 mL or 25mcg/0.25 mL dose 3 completed RITA Montiel [facility] 03/29/2023 09:01:50 Td (adult), 2 Lf tetanus toxoid, preservative free, adsorbed 9 completed Kourtney nunez [facility] 03/02/2023 09:21:38 Influenza, split virus, trivalent, preservative 0 completed [facility] 03/02/2023 09:21:38 Tdap 3 completed Kourtney [facility]ax[facility]ola [facility]ra, [facility] 03/02/2023 09:21:38 Past Encounters Encounter ID Performer Location Encounter Start Date Encounter Closed Date Diagnosis/Indication Diagnosis SNOMED-CT Code Diagnosis ICD10 Code Diagnosis IMO Codes Diagnosis Note [id number] ANG Gonzalez Main Office [address] [place] [address] 01/16/2014 08:02:46 01/16/2014 08:49:25 Left flank pain [id number] She has mild flank tenderness which is improving and urine dip only showed tr. leukocytes , will send out urine. For now will monitor, if pain persists or worsens will order ultrasound . [id number] [facility] [address] [facility] [place] [address] 09/28/2006 00:00:00 [id number] [facility] [facility] [address] [facility] [place] [address] 11/10/2006 00:00:00 [id number] [facility] [facility] [address] [facility] [place] [address] 09/27/2007 00:00:00 [id number] [facility] [facility] [address] [facility] [place] [address] 01/09/2008 00:00:00 [id number] [facility] [facility] [address] [facility] [place] [address] 10/19/2008 00:00:00 [id number] [facility] [facility] [address] [facility] [place] [address] 12/13/2008 00:00:00 [id number] [facility] [facility] [address] [facility] [place] [address] 01/11/2009 00:00:00 [id number] [facility] [facility] [address] [facility] [place] [address] 02/06/2009 00:00:[id number] [address] [address] [place] [address] 03/21/2009 00:00:[id number] [facility] [address] [place] [address] 08/14/2009 00:00:[id number] [facility] [address] [facility] [address] [place] [address] 08/21/2009 00:00:00 [id number] [employer] [facility] [address] [facility] [place] [address] 05/28/2010 00:00:00 [id number] [employer] [facility] [address] [facility] [place] [address] 05/30/2010 00:00:00 [id number] [facility] [facility]ce [address] [facility] [place] [address] 06/11/2010 00:00:00 [id number] [facility] [facility] [address] [facility] [place] [address] 08/06/2010 00:00:00 [id number] [facility] [facility]ce [address] [facility] [place] [address] 12/25/2010 00:00:00 [id number] [facility] [facility] [address] [facility] [place] [address] 01/15/2011 00:00:00 [id number] [facility] [facility] [address] [facility] [place] [address] 08/21/2011 00:00:00 [id number] [employer] [facility] [address] [facility] [place] [address] 10/14/2011 00:00:00 [id number] [employer] [facility] [address] [facility] [place] [address] 10/30/2011 00:00:00 [id number] [facility] [facility] [address] [facility] [place], [place] [address] 12/22/2011 00:00:00 [id number] [employer] [facility] [address] [facility] [place], [place] [address] 03/02/2012 00:00:00 [id number] [facility] [facility] [address] [facility] [place], [place] [address] 09/05/2012 00:00:00 [id number] [facility] [facility] [address] [facility] [place], [place] [address] 11/14/2012 00:00:00 [id number] [facility] [facility] [address] [facility] [place], [place] [address] 01/05/2013 00:00:00 [id number] [facility] [facility] [address] [facility] [place], [place] [address] 07/11/2013 00:00:00 [id number] STACY Swenson Main Office [address] [place] [address] [place], [place] [address] 06/01/2014 14:56:44 06/01/2014 15:48:55 Adult health examination [id number] [facility], will have blood work in next few days when fasting. Also will order part for her CPAP machine. Anxiety state 947808151 Gastroesop hageal reflux disease 101780089 Irritable bowel syndrome 65940146 Malaise and fatigue 728528673 Hyperlipid emia screening 871627546 Thyroid di sorder screening 600297351 Migraine 87773277 Sleep apnea 38689671 Body mass index 30+ - obesity 081504931 [id number] Addi Mtz MD Main Office [address] [place] [address] [place], [place] [address] 08/10/2014 10:45:51 08/10/2014 12:13:36 Acute sinusitis 45655819 Possible early bacterial process based on symptoms and exam findings. Also seems like there may be an allergy component as well. Advised to try allergy rx and start abx only if symptoms worsen/per sist. [id number] Chandler Brewer MD Main Office [address] [place] [address] [place], [place] [address] 01/02/2015 14:12:12 01/02/2015 14:49:07 Allergic rhinitis 16348673 chronic recurrent allergies not responding well to current mgmt. She did a z-pack w/o any help. We will stop her Flonase and try her own rhinocort. She will try tessalon perles for the cough and will make an appointmen t to be evaluated by ENT. [id number] Jocelyn Winters [facility] Main Office [address] [facility] [address] [facility] [place] [address] 04/25/2015 15:26:52 04/25/2015 16:12:11 Palpitations 22248854 R00.2 Patient states her palpitatio ns do [...] 1 month Obstructiv e sleep apnea syndrome 66258290 G47.33 Patient needs to get a new CPAP mask as her cat chewed through hers and she has not used it since last year. She denies significan t weight gain since her study in 2011. She will stop over at sleep medicine center and ask about a new mask/ whether she needs a new study done. [id number] ANG Swenson Main Office [address] [facility] [address] [facility] [place] [address] 05/16/2015 16:29:49 05/16/2015 17:02:20 Palpitations 56825030 R00.2 Sx continue though they are less frequent, she does not have symtpoms daily. She did get a replacemen t for her CPAP machine but has not used it yet. She will start it again this weekend. She decline cardiology referral/ event monitr at this time. Uncontrol ed type 2 diabetes mellitus 072643202 E11.65 Patient's fasting sugar was 108, A1C of 6.1 but she is symtpomati c- sweats, polyuria, polydipsia , polyphagia and numbness of feet when standing for long periods of time. Will have her return in 1 month for diabetic teaching with Demetrice and f/u in 6 months with labs prior. Diet and exercise discussed with patient, potential group home health consequenc es of DM also discussed briefly. Obstructiv e sleep apnea syndrome 24222832 G47.33 She was able to get a new mask for her machine, she will start CPAP again this weekend. [id number] Chandler Brewer MD Main Office [address] [facility] [address] [facility] [place] [address] 07/09/2015 13:42:52 07/09/2015 15:19:50 Adult health examination 283048617 Z00.00 Palpitations 71411247 R0 0.2 Diabetes mellitus 514698 09 E11.9 She has a mildly elevated A1C to 6.1. She has an upcoming appointmen t with Demetrice next month to discuss mgmt but she is currently not on any meds. [id number] Demetrice Rome PA-C Main Office [address] [facility] [address] [facility] [place] [address] 08/06/2015 12:59:17 08/06/2015 13:34:43 Impaired glucose tolerance 2954174 R73.02 Total time spent teaching and coordinati [...] return for f/u 6 weeks. Morbid obesity 372872668 E66.01 Pt. was instruted on 1500 carter ADA diet adn provided with sample menues. Pt. will return for f/u 6 weeks. [id number] Demetrice Rome PA-C Main Office [address] [facility] [address] [facility] [place] [address] 09/18/2015 09:27:40 09/18/2015 10:00:10 Diabetes mellitus 78794525 E11.9 Body mass index 30+ - obesity 891928769 Z68.34 Obesity. Pt. is doing very well with 1500 carter ADA diet and daily exercise. She was encouraged to continue . A1c will be done every 6 month , next one due to in December. Pt. will return for f/u in 2 months. 1 lb per week weight loss is a goal. [id number] Demetrice Rome PA-C Main Office [address] [place] [address] 12/08/2016 16:03:18 12/08/2016 16:36:15 Acute sinusitis 93064613 J01.90 Pt. started on Doxycyclin e 100 mg. Pt. educated on taking probiotics and eating yogurt. continuing pseudoephe d for congestion , Told to rest and drink fluids and contact office if problems worsen. Expiratory wheezing 9763 007 R06.2 Pt. started on Medrol 4 mg tabs to help with inflammati on . F/u if symptoms persist or worsen. [id number] Cesar mcwilliams MD Main Office [address] [address] 05/27/2017 12:58:04 05/27/2017 13:54:55 Adult health examination 822444886 Z00.00 pap is utd, mammogram is utd, pt had a colonoscop y and anoscopy 2009, her mom had anal cacner, pt will call ehr GI doc to see if needs colonoscop y before 2019, if so whe will arrange Lymphedema of lower extremity 168715616 I89.0 from salt, obesity and inactivity Body mass index 40+ - severely obese 919541942 Z68.42 pt hs cut out fast food, does not eat much veggies or fruit, talked about healthy choices, lives alone, trying to cook for self more Plantar fasciitis 321033 003 M72.2 pt tried many attempts, she will see [facility] care Obstructiv e sleep apnea syndrome 08542510 G47.33 starts with CPAP, sometimes it falls off Obesity 307188286 E66.9 [id number] Cesar mcwilliams MD Main Office [address] [place] [address] 11/30/2017 14:02:13 11/30/2017 14:59:47 Wheezing 59868900 R06.2 after UD a bit more open, recc prn inhaler, she has one Acute sinusitis 85385930 J01.90 will tx with abx, ill for over 2 weeks, use sinus washing [id number] Cesar mcwilliams MD Main Office [address] [place] [address] [place] [address] 01/10/2018 10:45:09 01/10/2018 11:52:54 Upper abdominal pain 78894569 R10.10 RUQ pt with very poor eating [...] Body mass index 40+ - severely obese 030076275 E66.01 Z68.41 long talk about stopping fast food, lowering alcohol [id number] Cesar mcwilliams MD Main Office [address] [place] [address] 05/23/2018 16:06:30 05/23/2018 16:54:22 Adult health examination 724551949 Z00.00 pt knows to keep utd with her screening, mom with rectal cancer, sees [facility] for colonoscop y Low back pain 092855886 M54.5 pt will see [facility] Body mass index 40+ - severely obese 873760812 E66.01 Z68.42 long talk about stopping fast food, lowering alcohol [id number] Elda saunders, [employer] Main Office [address] [place] [address] 07/06/2018 08:49:09 07/06/2018 09:31:18 Pneumonia 450035539 J18.9 Fatigue 38815028 R53.83 labs today Wheezing 78597860 R06.2 duoneb treatment today, feeling better, can try proair at home as needed. Body mass index 40+ - severely obese 282450418 Z68.42 pt needs to work on increasing exercise and control portion sizes Chronic rhinitis 5447268 6 J31.0 Severe obesity 799411195 1 9104 E66.01 [id number] Cesarmarianela mcwilliams MD Main Office [address] [facility] [address] [place] [address] 10/26/2018 15:52:37 10/26/2018 17:07:58 Cough 74791226 R05 see workup below Dyspnea 750335880 R06.02 check labs and treat for asthma. Seasonal a llergic rhinitis 993857904 J30.2 start med, has asthma and allergies [id number] Fidencio Castellanos MD Main Office [address] [place] [address] [place] [address] 12/15/2018 08:25:15 12/16/2018 14:39:51 [id number] Fidencio Castellanos MD Main Office [address] [place] [address] [place] [address] 12/16/2018 13:52:57 12/16/2018 14:50:29 Deep venous thrombosis of upper extremity 778312051 I82.609 D/c control. WE discussed having to [...] not beeing sexually active at tis point. [id number] Addi Mtz MD Main Office [address] [place] [address] [place] [address] 06/16/2019 14:22:23 06/16/2019 15:29:37 Adult health examination 005710533 Z00.00 Pt is in good general health. Social and family history reviewed. Immunizati ons reviewed, advised annual flu shot. She is upt to date on dental and eye providers, mammogram up to date, colon not due yet, Reviewed diet and exercise and need for wt loss Anxiety state 179278632 F41.1 stable on current dose of citalopram . Obstructiv e sleep apnea syndrome 93241612 G47.33 uses cpap intemitten tly Body mass index 40+ - severely obese 473046744 Z68.42 pt needs to work on increasing exercise and control portion sizes. she states she cannot exercise due to back problem. She does not seem motivated to make changes for wt loss at this time. Chronic back pain 424188 002 M54.9 Gastroesop hageal reflux disease 276633126 K21.9 stable on PPI for now, states she has had EGD in the past, no Barretts. Major depr ession single episode, in partial remission 44698575 F32.4 stable on meds, also has social anxiety Migraine 10534813 G43.90 9 controlled on topamax and uses prn meds Chronic cough 13009610 R 05 restart nasonex and zyrtec, continue singulair, recheck in 4-6 weeks Morbid obesity 588671846 E66.01 [id number] Addi Mtz MD Main Office [address] [facility] [address] [place] [address] 07/21/2019 16:03:33 07/21/2019 17:05:50 Dyspnea on exertion 29579710 R06.09 EKG without acute changes, reviewed with [...] CP, increased leg edema or calf pain. [id number] Addi Mtz MD Tele[facility] [address] [facility] [address] [place] [address] 02/20/2020 13:36:20 02/20/2020 16:03:31 Dependent edema 810632563 R60.0 advised to cont lasix 40mg in am, but to add 20mg in early afternoon (starting today), and increase elevation of LE, and to check bmp tomorrow and f/u c renal on Prediabetes 070169593 R7 3.03 Iron defic iency anemia 79797818 D50.9 Fatigue 09847251 R53.83 [id number] Cesar mcwilliams MD Main Office [address] [facility] [address] [place] [address] 04/04/2020 09:17:22 04/04/2020 10:09:05 Needs influenza immunization 705755820 Z23 Gastroesop hageal reflux disease 711634166 K21.9 start med. if not improved will referto GI Body mass index 40+ - severely obese 365076026 Z68.42 pt with poor eating habits, morbidly obese. talked about hanging this trend, ideas Major depr ession single episode, in partial remission 92322436 F32.4 on celexa lots of life stresses, is unemployed . Obstructiv e sleep apnea syndrome 57233183 G47.33 will get a repeat sleep study, will work with pulmonary on cpap Lymphedema of lower extremity 885527525 I89.0 from salt, obesity and inactivity Chronic va scular insufficiency 02471902 I99.8 seeing vasular Severe obesity 335397053 1 9104 E66.01 [id number] Chandler Brewer MD [facility] [address] [facility] 207 [facility] [place] [address] 07/13/2020 08:00:03 07/17/2020 09:34:27 Pain of multiple joints 19120511 M25.50 Multiple joint pains. Possible PMR given the hips and shoulder involvemen t. Also fibromyalg ia is part of the ddx. [id number] Jerry Jay MD [facility] [address] [facility] [address] [facility] [place] [address] 08/06/2020 15:02:33 08/08/2020 11:52:00 Cervical radiculopathy 11968449 M54.12 Medication as per order, risk of [...] will consider MRI and neurosurge ry eval. [id number] Jerry Jay MD Tele[facility] [address] [place] [address] 09/07/2020 08:55:23 09/07/2020 10:58:31 Candidiasis of mouth 72022598 B37.0 The exam is limited due to [...] we can consider switching to p.o. Diflucan. [id number] Cesar mcwilliams MD Main Office [address] [place] [address] 09/19/2020 15:26:57 09/19/2020 16:18:20 Adult health examination 365545350 Z00.00 utd on screening. eating much better Obstructiv e sleep apnea syndrome 92530196 G47.33 using CPAP and feels so much better Chronic va scular insufficiency 95952752 I99.8 much less edema with weight loss, low salt Major depr ession single episode, in partial remission 66492308 F32.4 improved mood, is working Body mass index 40+ - severely obese 469566770 E66.01 Z68.41 doing so much better, working with [facility] [facility] and quit drinking [id number] Addi Mtz MD Main Office [address] [place] [address] 01/13/2021 15:31:08 01/13/2021 16:36:02 Pain in coccyx 83430506 M53.3 soft pillow or donut for sitting, otc meds prn avoid prolonged sitting with out breaks Altered lin wel function 17315646 R19.4 Likely IBS, had neg eval for celiac, but feels better with less gluten and dairy, colon up to date, CALE neg Irritable bowel syndrome 59541872 K58.9 diet changes help, add probiotic Migraine 68223291 G43.90 9 controlled on topamax and uses prn meds Moderate p ersistent asthma 997692606 J45.40 on controller meds. doing well [id number] Addi Mtz MD Main Office [address] [facility] [address] [facility] [place] [address] 01/27/2021 09:05:38 01/27/2021 09:45:07 Kidney stone 64442019 N20.0 will rule out stone, infection. Left sided abdominal pain 205329324 R10.9 pt with persistent pain, waking her at night will check US and labs, rest, call if any worsening sx, rash, hematuria, fever or bowel issues. Use otc analgesia in the interim. [id number] Cesar mcwilliams MD Main Office [address] [facility] [address] [facility] [address] 03/27/2022 15:40:08 03/27/2022 16:49:07 Adult health examination 374654318 Z00.00 Pt is stable, feeling well and trying to have better health habits.. Social and family history reviewed. Immunizati ons reviewed, advised annual flu shot. She is upt to date on dental and eye providers, mammogram up to date, colon up to date (2019), Reviewed diet and exercise. Obstructiv e sleep apnea syndrome 19230157 G47.33 using CPAP and feels so much better Chronic va scular insufficiency 86781835 I99.8 much less edema with weight loss, low salt eating Major depr ession single episode, in partial remission 10638052 F32.4 stable now, doing well overall Body mass index 40+ - severely obese 447221426 E66.01 Z68.41 doing so much better, working with [employer] and quit drinking Gastroesop hageal reflux disease 685847607 K21.9 stable on PPI for now, states she has had EGD in the past, no Barretts. Varicella vaccination 68 682904 Z23 Hepatitis C screening 41 7599886 Z11.59 Screening for malignant neoplasm of cervix 700086530 Z12.4 pap up to date, hx of abnormals, had hpv, better now Screening for malignant neoplasm of breast 528522736 Z12.39 mammogram up to date [id number] Addi Mtz MD Tele[facility] [address] [facility] [address] [place] [address] 05/26/2022 10:19:23 05/26/2022 15:57:46 Acute sinusitis 56943386 J01.90 recommend probiotics while on abx [id number] Elda saunders, [employer] Main Office [address] [facility] [address] [place] [address] 12/11/2022 11:29:44 12/11/2022 12:34:45 Dysfunctional uterine bleeding 27601985 N93.9 to see dental hygienist mobile coordinator for this, pt will make appt Anxiety state 389649673 F41.1 Pt needs to have med evaluation , agrees to have therpist call me and try to get med prescriber through [facility] where her therapist is located. Pt tells me she is not having any thoughts of hurting herself or others. Has weekly counseling . Short term followup with Dr Jay Mood swings 36656306 R45 .86 will likely need mood stabilizer , recommend mental health med prescriber , pt agrees, seems stable today, no acute michael or depression at this time. Will call therapist for referral. [id number] Jerry Jay MD Main Office [address] [facility] [address] [place] [address] 03/29/2023 08:54:41 03/29/2023 09:43:23 Anxiety state 274528864 F41.1 stable. Adult heal th examination 398105778 Z00.00 Patient was counseled on healthy diet, exercise and nutrition due to Body mass index is 43.7 kg/m . Last Colonoscop y:Date: 05/08/2020 Result: WnlPlan: per GI repeat 10yrs Last Mammogram: Date: 10/20/22Res ult: Birad 1Plan: screen 1 yr Last Pap smearDate: 12/08/22Res ult: Neg for SABRINA, TZ present, HPV negPlan: Per USPTF screen 5yrs Bone density scanDate:R esult:Plan : not due Vaccines:T dAP: script givenZoste r rec: script given [id number] : advised to getInfluen za: plans to get at work.Covid : 07/19/20, 08/16/20, 05/02/21, 02/26/23 bivalent, encourage updated vaccine in 3 mo. Routine labs today Immunizati on status reviewed. Will screen based on risk factors. Regular dental and ophtho care advised as well as seat belt and sunscreen use. Distracted driving discussed. Medication reconciled . Obstructiv e sleep apnea syndrome 65260025 G47.33 using CPAP and feels so much better Body mass index 40+ - severely obese 863062054 Z68.41 Major depr ession single episode, in partial remission 31216109 F32.4 stable now, doing well overall Gastroesop hageal reflux disease 183451408 K21.9 stable on PPI for now, states she has had EGD in the past, no Barretts. Varicella vaccination 68 046749 Z23 Screening for malignant neoplasm of breast 104146587 Z12.39 mammogram up to date Needs infl uenza immunization 992103026 Z23 will get flu shot at work. Impaired g lucose tolerance 5390402 R73.02 Administra tion of viral vaccine 11489253 Z23 Fatigue 76303269 R53.83 Severe obesity 867028147 1 9104 E66.01 doing so much better, was working with [employer] and quit drinkingAd vise to consider nume.- Diet and exercise discussed- Patient made aware of risks of obesity- Encouraged to loose weight. Goal set to loose weight at 1-1.5 Lbs/week- Avoid starchy and fatty food- Encouraged use of green vegetables and fruits- Consider Bariatric Surgery evaluation Hyperlipidemia 26427967 E78.5 Thoracic back pain [id number] M54.6 [id number] Jerry Jay MD Main Office [address] [facility] [address] [facility] [place] [address] 08/28/2023 09:45:52 08/28/2023 10:31:40 Acute labyrinthitis [id number] 15861 H83.09 SARS-CoV-2 [id number] U07 .1 At this point she is [...] > go to nearest ED Acute asthma 560877915 J 45.90 [id number] Jerry Jay MD Main Office [address] [facility] [address] [facility] [place] [place] [address] 09/28/2023 15:45:34 09/29/2023 13:14:52 Anxiety state [id number] F41.1 stable. 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 working with therapistD enies any thoughts of self harm or harming others.We agreed to keep current meds till she gets psych eval.She is aware to call if anything comes up otherwise will follow up in . [id number] Addi Mtz MD Main Office [address] [facility] 207 [facility] [place] [place] [address] 11/30/2023 11:23:46 11/30/2023 11:56:21 Urge incontinence of urine 37747236 N39.41 dipstick negative, will send urine for ua/c&s to verifymean while, rec cranberry juice/cont stay well hydratedse e below Candidiasis of vagina 72 987514 B37.31 pt gets yeast infxn's recurrentl y - used cream recently, will try poconsider f/u c dental hygienist mobile coordinator [id number] Jerry Jay MD Main Office [address] [facility] 207 [facility] [place] [address] 04/04/2024 14:26:20 04/04/2024 15:22:24 Adult health examination [id number] Z00.00 Patient was counseled on healthy diet, exercise and nutrition due to Body mass index is 45.5 kg/m . Last Colonoscop y:Date: 05/08/2020 Result: WnlPlan: per GI repeat 10 yrs Last Mammogram: Date: 10/25/23Res ult: Birad 1Plan: screen 1 yr Last Pap smearDate: 12/08/22Res ult: Neg for SABRINA, TZ present, HPV negPlan: Per USPTF screen 5 yrs Bone density scanDate:R esult:Plan : not due Vaccines:T dAP: script given againZoste r rec: script given [id number] : advised to getInfluen za: plans to get at work.Covid :encourage updated vaccine Routine labs today Immunizati on status reviewed. Will screen based on risk factors. Regular dental and ophtho care advised as well as seat belt and sunscreen use. Distracted driving discussed. Medication reconciled . Anxiety state 516822576 F41.1 Obstructiv e sleep apnea syndrome 92802356 G47.33 using CPAP and feels so much better Major depr ession single episode, in partial remission 14815952 F32.4 stable now, doing well overall Gastroesop hageal reflux disease 095142468 K21.9 stable on PPI for now, states she has had EGD in the past, no Barretts. Fatigue 06272857 R53.83 Hyperlipidemia 80172495 E78.5 Severe obesity 766405821 1 9104 E66.01 -Advise to consider nume.- Diet and exercise discussed- Patient made aware of risks of obesity- Encouraged to loose weight. Goal set to loose weight at 1-1.5 Lbs/week- Avoid starchy and fatty food- Encouraged use of green vegetables and fruits- Consider Bariatric Surgery evaluation Body mass index 40+ - severely obese 166550914 Z68.41 Administra tion of viral vaccine 33295506 Z23 Varicella vaccination 68 380626 Z23 Prediabetes 045816425 R7 3.03 Administra tion of pneumococcal vaccine 00175600 Z23 Needs infl uenza immunization 549933394 Z23 done at work [id number] Chandler Brewer MD Main Office [address] [place] [address] 06/14/2024 15:00:16 06/14/2024 15:33:44 Moderate persistent asthma 337845851 J45.40 hx of asthma-use s albuterol inhaler->p rovides relief only for a few hours-symp toms of wheezing, sob, and dry cough-zoltan es of any congestion , fever/chil ls, FORMAN, sinus pain, chest pain-appre ciated wheezing in the upper lobes bilaterall y-will provide short course of prednisone and discussed to continue with conservati ve measuremen ts [id number] Chandler Brewer MD Main Office [address] [facility] 207 [place] [address] 11/28/2024 08:45:25 11/28/2024 09:48:50 Acute maxillary sinusitis 74364094 J01.00 [id number] secondary to worsening allergies. begin antibiotic as directed along with oral probiotic. nasal saline solution BID or daily nasal rinse is advised. Allergic rhinitis 164770 04 J30.9 8909390 recommend to begin Alix 180 mg daily, flonase nasal spray and nasal saline BID. [id number] Jerry Jay MD Main Office [address] [facility] [address] [place] [address] 04/10/2025 12:54:27 04/10/2025 13:48:11 Adult health examination 959700569 Z00.00 Patient was counseled on healthy diet, [...] script given againZoste r rec: script given [id number] : script givenInflu billy: plans to get at work.Covid :encourage updated vaccine Advised to spread vaccine but shingrix is 2 mo apart. Routine labs today Immunizati on status reviewed. Will screen based on risk factors. Regular dental and ophtho care advised as well as seat belt and sunscreen use. Distracted driving discussed. Medication reconciled . Anxiety state 378226648 F41.1 No thoughts of self harm or harming others. Obstructiv e sleep apnea syndrome 08487054 G47.33 using CPAP and feels so much better Major depr ession single episode, in partial remission 23198976 F32.4 stable now, doing well overall Gastroesop hageal reflux disease 632497744 K21.9 stable on PPI for now, states she has had EGD in the past, no Barretts. Prediabetes 759312419 R7 3.03 Fatigue 25296924 R53.83 Hyperlipidemia 32173477 E78.5 Severe obesity 590626439 1 9104 E66.01 -Advise to consider nume.- Diet and exercise discussed- Patient made aware of risks of obesity- Encouraged to loose weight. Goal set to loose weight at 1-1.5 Lbs/week- Avoid starchy and fatty food- Encouraged use of green vegetables and fruits- Consider Bariatric Surgery evaluation Body mass index 40+ - severely obese 992089564 Z68.41 Administra tion of viral vaccine 92113861 Z23 Varicella vaccination 68 066337 Z23 Administra tion of pneumococcal vaccine 89889695 Z23 Needs infl uenza immunization 692201863 Z23 done at work Dependence on continuous positive airway pressure ventilation 040643458 Z99.89 Vitamin D deficiency 347 05615 E55.9 [id number] Chandler Brewer MD Main Office [address] [facility] [address] [place] [address] 04/18/2025 13:00:20 04/18/2025 13:53:35 Chest pain 55266439 R07.89 65074 Does not appear to be cardiac but given the possibly ischemia seen on her EKG will get a stress test to look for ischemia. Anterior c hest wall pain 176191661 R07.89 [id number] Carries a bag on the left side of her chest. Advised regular NSAIDs. Health Concerns Section Related Observation LastModified by Organization Detai ls LastModified Time None Recorded Concern Status LastModified by Organization Details LastModified Time None Recorded Advance Directives Directive Y: Payers Insurance Date Sequence Insurance Name Policy Number Policy Sharma Covered Member ID Sharma Member ID Guarantor Name 02/17/2024 1 [facility] [id number] Adry Lorenzo [id number] Adry Lorenzo 12/25/2021 1 [facility] Adry Lorenzo [id number] Adry Lorenzo 04/18/2025 1 [facility] [id number] Adry Lorenzo [id number] Adry Lorenzo 02/19/2020 1 [facility] [id number] Adry Lorenzo [id number] Adry Lorenzo 07/12/2020 1 [facility] [id number] Adry Lorenzo [id number] Adry Lorenzo Notes Date Note Type Note Provider Name and Address Organization Details Recorded Time 04/04/2024 text/html Generic HPI TemplateReported by PatientROS as noted in the HPI Here for PE visit. Reviewed chronic medications and medical problems. Discussed screening guidelines as well as goals for fitness and weight management. Mental health:Seeing therapist 1x every 2 weeks doing well, seeing Dr. Dozier for medication management. These regimen seem to help a lot. Jerry Jay MD [address], [address], [facility] 04/04/2024 15:17:44 06/14/2024 text/html ROS as noted in the HPI Adry is a 53yr old F who presents for SOB and dry cough x5 days. Hx of asthma. Symptoms of a dry cough and SOB. Denies of any fever, chills, n/v, or headache. Denies of any URI symptoms such as congestion, chills/fever, n/v, FORMAN, sinus pain. Has been having difficulty taking deep inhalations and having SOB. Uses her albuterol inhaler which provides some relief but only lasts a few hours. ESMER VALDERRAMA [address] [address], [place], [address], [facility] 06/15/2024 22:36:09 11/28/2024 text/html ROS as noted in the HPI 54yoF c/o of sinus pain, sore throat, post nasal drip, headache, and bitter taste in mouth that began 10 days ago, and has worsened in the past 4 days. Patient has pressure/pain in frontal and maxillary sinuses and brown phlegm, with a mild cough. Patient has sneezing and sore throat that started 4 days ago. Patient has history of year-round allergies, takes Montelukast daily, and no antihistamine. Tried Advil cold and sinus with relief of symptoms. Denies fever/chills, ear pain, hearing loss, and itchy eyes. Demetrice Rome PA-C [address] [address], [place], [address], [facility] 11/28/2024 10:25:52 04/10/2025 text/html Generic HPI TemplateReported by PatientROS as noted in the HPI Here for PE visit. Reviewed chronic medications and medical problems. Discussed screening guidelines as well as goals for fitness and weight management. Mental health:Seeing therapist 1x every 2 weeks doing well, seeing Dr. Dozier for medication management. These regimen seem to help a lot. Jerry Jay MD [address] [address], [place], [address], [facility] 04/10/2025 13:41:15 04/18/2025 text/html She has been having intermittent [...] She denies SOB. Chandler Brewer MD [address] [address], [place], [address], [facility] 04/19/2025 09:25:25 OBGyn Episode No OBEpisode recorded.
== END 2025-05-17 15:32 | disposition home or self-care (01) ==
LOC: HO.HPS 15:11
PROVIDERS: PCP Family Medicine; Visit Provider Internal Medicine Pulmonary Disease
DX: J45.50 Severe persistent asthma, uncomplicated (principal); Z91.09 Other allergy status, other than to drugs and biological substances; G47.33 Obstructive sleep apnea (adult) (pediatric)
CPT/HCPCS: 99214; G2211